=== PATIENT | female | born 1995 | race Caucasian/White ===

== ENCOUNTER → 2020-06-23 13:08 | Outpatient (CLI) | payer MEDICARE, MEDICAID, SELFPAY ==
--- NOTE | ~2020-06-23 | US_ITS ---
EXAMINATION: US OB follow up DATE: 06/23/2020 13:38 INDICATION: care. Contractions. TECHNIQUE: Real-time transabdominal obstetric ultrasound. FINDINGS: No prior studies for comparison. There is a single living fetus in vertex presentation. The placenta is anterior without placenta pre via. cardiac activity and movement is noted with a heart rate of 145 beats per minute. T he amniotic fluid volume is below normal limits. TARIQ is 5.3 (normal range for gestational age is 7.7- 24.9 cm). The following biometric data were obtained: BPD: 87mm corresponds to gestational age 35 weeks 1 days. Head circumference: 321mm corresponds to gestational age 36 weeks 2 days. Abdominal circumference: 316mm corresponds to gestational age 35 weeks 4 days. Femur length: 74mm corresponds to gestational age 37 weeks 6 days. Estimated weight: 2877grams +/- 432grams.] IMPRESSION: 1. Single living intrauterine fetus in vertex presentation with an estimated gestational age of 36 w eeks 2 days by current ultrasound. EDC by current ultrasound is 07/19/2020. 2. Normal placenta. 3: Oligohydramnios. TARIQ measures 5.3 cm. Reviewed, dictated and finalized at location A. IMPRESSION: 1. Single living intrauterine fetus in vertex presentation with an estimated g estational age of 36 weeks 2 days by current ultrasound. EDC by current ultraso und is 07/19/2020. 2. Normal placenta. 3: Oligohydramnios. TARIQ measures 5.3 cm.
== END ==
PROVIDERS: Visit Provider Obstetrics & Gynecology
DX: Z34.83 Encounter for supervision of other normal pregnancy, third trimester (principal); Z3A.36 36 weeks gestation of pregnancy; O41.03X0 Oligohydramnios, third trimester, not applicable or unspecified
CPT/HCPCS: 76816

== ENCOUNTER 2020-07-02 19:53 | Observation (INO) | payer MEDICARE, MEDICAID, SELFPAY ==
[2020-07-02 20:19] VITALS: BP 129/68; PULSE 82
[2020-07-02 20:27] VITALS: BMI 38.5
[2020-07-02 20:32] LABS: Add Urine Microscopic? YES; Appearance Urine Cloudy (Clear); Bacteria Urine Trace /hpf; Bilirubin Urine Negative (Negative); Blood Urine Negative (Negative); Color Urine Yellow (Yellow); Glucose Urine UA Negative (Negative); Ketones Urine Negative (Negative); Leukocyte Esterase Ur Trace LEU/UL (Negative); Mucus Urine Rare /lpf; Nitrate Urine Negative (Negative); Protein Urine Negative (Negative); RBC Urine 0-2 /hpf (0-2); Specific Grav Ur 1.012 (1.001-1.035); Squamous Epithelial Cell Urine Occasional /hpf (Few); Urobilinogen Urine Negative mg/dL (<2.0); WBC Urine 0-3 /hpf
[2020-07-02] MEDS: METOCLOPRAMIDE HCL INJ 10 MG/2 ML VIAL 5 MG IV PUSH (21:08)
[2020-07-02] MEDS: DEXTROSE 5%/0.9% SOD CHL 1,000 ML 999 ML IV CONT (21:08)
[2020-07-02] MEDS: FAMOTIDINE 20 MG/2 ML VIAL IV PUSH (21:09)
[2020-07-02] MEDS: ONDANSETRON INJ 4 MG/2 ML VIAL IV PUSH (21:09)
--- NOTE | 2020-07-07 11:50 | PM.OBTRLD ---
OB - Triage/Final Diagnosis Evaluation Laboratory results: Laboratory Tests 07/02/20 20:19 Urine Color Yellow Urine Appearance Cloudy H Urine pH 7.0 Ur Specific [place] 1.012 Urine Protein Negative Urine Glucose (UA) Negative Urine Ketones Negative Ur Blood (Man) Negative Urine Nitrate Negative Urine Bilirubin Negative Urine Urobilinogen Negative Leukocyte Esterase Rfl Trace H Urine RBC 0-2 Urine WBC 0-3 Ur Squamous Epith Cells Occasional Urine Bacteria Trace Urine Mucus Rare Final Diagnosis (1) Nausea and vomiting during : Code(s): O21.9 - Vomiting of , unspecified Status: Acute
== END 2020-07-02 22:25 | disposition home or self-care (01) ==
PROVIDERS: Admitting Provider Obstetrics & Gynecology; Visit Provider Obstetrics & Gynecology
DX: O21.9 Vomiting of pregnancy, unspecified (principal)
CPT/HCPCS: 81001; 96374; 96375; G0378; G0379; J2405; J2765; J7042

== ENCOUNTER 2020-07-15 15:32 | Outpatient (CLI) | payer MEDICARE, MEDICAID, SELFPAY ==
--- NOTE | 2020-07-15 15:32 | PC.NURSE ---
Addendum entered by Imelda Short RN 07/15/20 17:11: Patient presents to L&D with complaint of leaking of fluid for the past several days and irregular contractions. Original Note: Patient
[2020-07-15 16:16] VITALS: BP 128/81; PULSE 87
--- NOTE | 2020-07-15 16:16 | PC.NURSE ---
Dr. Echavarria notified regarding negative ROM Plus, SVE, and reactive FHR tracing with absence of contractions. Received orders from Dr. Echavarria to discharge patient to home with labor precautions and to have patient return to hospital on Monday at 1330 for her scheduled Section.
--- NOTE | 2020-07-15 16:27 | PC.NURSE ---
Patient instructed on labor and return precautions. Patient instructed to return to hospital on Monday at 1330 for her scheduled Section and to be NPO starting at 0730 Monday morning. Patient instructed to call with any questions or concerns. Patient verbalizes understanding and accepts POC.
== END 2020-07-15 16:27 | disposition home or self-care (01) ==
LOC: ANHOBOP 16:43
PROVIDERS: PCP Obstetrics & Gynecology; Visit Provider Obstetrics & Gynecology
DX: O42.90 Premature rupture of membranes, unspecified as to length of time between rupture and onset of labor, unspecified weeks of gestation (principal); Z3A.00 Weeks of gestation of pregnancy not specified
CPT/HCPCS: 59025

== ENCOUNTER 2020-07-17 12:42 | Inpatient (IN) | payer MEDICARE, MEDICAID, SELFPAY ==
[2020-07-17] VITALS (61 sets, daily range): BP systolic 100–138; BP diastolic 50–82; PULSE 62–107; RESP 14–18; TEMP 36.2–36.3; O2SAT 80–100; BMI 38.0
[2020-07-17 14:03] LABS: Basophils Percent Auto 0.4 % (0.2-1.2); Eosinophils Percent Auto 0.4 % (0-4.4); Hematocrit 41.7 % (37.0-47.0); Hemoglobin 14.3 g/dL (12.0-15.0); Immature Granulocyte Absolute 0.06 K/mm3 (0.00-0.031); Immature Granulocyte Percent A 0.6 % (0-0.5); Lymphocytes Absolute Auto 1.52 K/mm3 (0.9-3.2); Lymphocytes Percent Auto 14.7 % (18.3-44.2); Mean Corpuscular HGB Conc 34.3 g/dl (32-36); Mean Corpuscular Hemoglobin 30.6 pg (26-34); Mean Corpuscular Volume 89.1 fl (80-100); Mean Platelet Volume 8.9 fl (7.4-10.4); Monocytes Absolute Auto 0.5 K/mm3 (0.1-0.6); Monocytes Percent Auto 4.6 % (2.6-8.5); Neutrophils Absolute Auto 8.2 K/mm3 (1.3-6.7); Neutrophils Percent Auto 79.3 % (45.5-73.1); Platelet Count Result 275 k/mm3 (150-375); Red Blood Count 4.68 M/mm3 (4.2-5.4); Red Cell Distribution Width 13.3 % (11.5-14.5); White Blood Count 10.4 K/mm3 (4.5-10.0)
--- NOTE | 2020-07-17 14:10 | WPDANESEPP ---
Anes - Eval Pre Procedure Procedure: Operation Date: 07/17/20 10:30 Proposed Procedures p Repeat Low Transverse Section - Johny Echavarria MD Date/Time: 07/17/20 14:10 Pre Op Diagnosis: scheduled c/s Patient Data Age: 24 Gender: F Height: 1.91 m Weight: 138 kg Last Vital Signs Temp 36.2 C L 07/17/20 13:10 Pulse 85 07/17/20 13:16 Resp 14 07/17/20 13:10 BP 127/79 07/17/20 13:16 Allergies Allergy/AdvReac Type Severity Reaction Status Date / Time ibuprofen Allergy Intermediate Other Verified 07/15/20 17:18 iron Allergy Intermediate Other Verified 07/15/20 17:18 amoxicillin Allergy Unknown vomiting Verified 07/15/20 17:18 morphine Allergy Unknown hives Verified 07/15/20 17:18 clavulanic acid AdvReac Intermediate Nausea and Verified 07/15/20 17:18 Vomiting Home Medications Medication Instructions Recorded Confirmed Type acyclovir 800 mg tablet 800 mg PO DAILY 01/03/20 07/15/20 History vitamin#30 30 mg iron-10 cap PO DAILY cap 01/03/20 History mg iron-folic acid 1 mg-omg3 capsule progesterone micronized 200 mg 200 mg PO ONCE 01/03/20 07/15/20 History capsule Laboratory Tests 07/17/20 07/17/20 13:55 13:55 WBC Pending RBC Pending Hgb Pending Hct Pending MCV Pending MCH Pending MCHC Pending RDW Pending Plt Count Pending MPV Pending Immature Gran % (Auto) Pending Neut % (Auto) Pending Lymph % (Auto) Pending [place] % (Auto) Pending Eos % (Auto) Pending Baso % (Auto) Pending Lymph # (Auto) Pending [place] # (Auto) Pending Eos # (Auto) Pending Baso # (Auto) Pending Abs Immat Gran (auto) Pending Absolute Neuts (auto) Pending Absolute Nucleated RBC Pending Nucleated RBC % Pending RPR Pending Patient hx anesthesia problems: none Family hx anesthesia problems: none PMFSH Past Medical History Medical History Anxiety GERD (gastroesophageal reflux disease) Surgical History Surgical History History of appendectomy History of section Hx of cholecystectomy Family History Family History Father Diabetes mellitus Heart disease COPD (chronic obstructive pulmonary disease) Lung cancer Social History Social History Smoking status: Never smoker Second hand tobacco smoke exposure: No Substance use: never Gender identity (if verbalized by the patient): Female Spiritual care concerns: No Exam Day of Procedure 07/17/20 14:10 Patient weight: obese Heart: regular rate and rhythm Lungs: normal air movement Airway: Mallampati scale class III Neurological: alert and oriented
[2020-07-17] MEDS: LACTATED RINGERS 1,000 ML 125 ML IV CONT (14:49)
--- NOTE | 2020-07-17 16:11 | WPDANESEFPP ---
Anes - Eval Final PreProcedure Day of Procedure 07/17/20 16:11 Patient weight: obese Heart: regular rate and rhythm Lungs: clear to auscultation Airway: Mallampati scale class II Neurological: alert and oriented Last oral intake: >/= 8 hours ASA classification: II Emergent: no Anesthetic plan: proceed Anesthesia type and monitoring: regional spinal and standard monitoring Informed Consent: The patient's anesthetic plan and its attendant risks and benefits were discussed with the patient/family/POA. Questions were solicited and answers provided to the satisfaction of the patient/family/POA.
--- NOTE | 2020-07-17 16:32 | PM.IMHP ---
H&P: HPI History of Present Illness Date/Time: 07/17/20 16:32 Chief complaint: scheduled c/s Narrative: Isabela rFancois is a 24 year old female, with h/o C/S, miscarriage, abnormal progesterone, HSV, GBS, and MTHFR who presents for her repeat c section Review of Systems Review of Systems: All systems reviewed & are unremarkable except as noted in HPI and below Constitutional: Constitutional: Reports no additional constitutional complaints Eyes: Eyes: Reports no additional eye complaints ENT: Reports system reviewed and no additional complaints, except as documented Cardiovascular: Cardiovascular: Reports no additional cardiovascular complaints Respiratory: Respiratory: Reports no additional respiratory complaints Gastrointestinal: Gastrointestinal: Reports no additional gastrointestinal complaints Genitourinary: Genitourinary: Reports no additional female genitourinary complaints Musculoskeletal: Musculoskeletal: Reports no additional musculoskeletal complaints Integumentary/Breasts: Skin/Breast: Reports system reviewed and no additional complaints, except as docu Neurologic: Reports system reviewed and no additional complaints, except as documented Psychiatric: Psychiatric: Reports no additional psychiatric complaints Endocrine: Endocrine: Reports no additional endocrine complaints Hematologic/Lymphatic: Hematologic/Lymphatic: Reports no additional hematologic/lymphatic complaints Allergic/Immunologic: Allergic/Immunologic: Reports no additional allergic/immunologic complaints PMFSH Past Medical History Medical History Anxiety GBS (group B Streptococcus carrier), +RV culture, currently GERD (gastroesophageal reflux disease) 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 HSV (herpes simplex virus) infection Obesity Rh negative status during STD (sexually transmitted disease) Surgical History Surgical History Delivery by section History of appendectomy History of section Hx of cholecystectomy Family History Family History Father Diabetes mellitus Heart disease COPD (chronic obstructive pulmonary disease) Lung cancer Social History Social History (Updated 07/17/20 @ 16:37 by Johny Echavarria MD) Smoking status: Never smoker Second hand tobacco smoke exposure: No Alcohol intake: never Substance use: never Substance use type: does not use Living arrangements: with friend(s) Occupation/Education: unemployed Gender identity (if verbalized by the patient): Female Sexual Orientation (if Verbalized by the Patient): Straight or Heterosexual Spiritual care concerns: No Agree to blood products: Yes Meds Home Medications and Allergies Home Medications Medication Instructions Recorded Confirmed Type acyclovir 800 mg tablet 800 mg PO DAILY 01/03/20 07/15/20 History vitamin#30 30 mg iron-10 cap PO DAILY cap 01/03/20 History mg iron-folic acid 1 mg-omg3 capsule progesterone micronized 200 mg 200 mg PO ONCE 01/03/20 07/15/20 History capsule Allergies Allergy/AdvReac Type Severity Reaction Status Date / Time ibuprofen Allergy Intermediate Other Verified 07/15/20 17:18 iron Allergy Intermediate Other Verified 07/15/20 17:18 amoxicillin Allergy Unknown vomiting Verified 07/15/20 17:18 morphine Allergy Unknown hives Verified 07/15/20 17:18 clavulanic acid AdvReac Intermediate Nausea and Verified 07/15/20 17:18 Vomiting Vital Signs Vital Signs - 24 hr 07/17/20 13:06 07/17/20 13:10 07/17/20 13:16 Temperature 97.2 F L Pulse Rate 83 83 85 Respiratory Rate 14 Blood Pressure 130/77 130/77 127/79 Exam Const: General: cooperative, healthy appearing, comfortable, no acute distress and well developed Nutritional Appearance: obese Orientat
--- NOTE | 2020-07-17 16:41 | WPDHPUPDATE1 ---
History and Physical Update Update Date/Time: 07/17/20 16:41 History and Physical has been reviewed, including an updated exam of the patient. There are NO changes in the patient's condition. Risks, benefits, and alternatives have been discussed and questions answered. Patient agrees to proceed with procedure. 24yo F, with h/o C/S, miscarriage, abnormal progesterone, HSV, GBS, and MTHFR who presents for her repeat c section
--- NOTE | 2020-07-17 16:42 | WPDOBADMIT ---
Obstetrics - Admit Note Admission Note: record reviewed. No pertinent additions to the history and/or any subsequent changes in the physical findings that are not consistent with the expected course of the were found. Additions to the history and/or subsequent changes in the physical findings follow. None. 24yo F, with h/o C/S, miscarriage, abnormal progesterone, HSV, GBS, and MTHFR who presents for her repeat c section
--- NOTE | 2020-07-17 18:16 | P.PCNOB_ITS ---
OB - Delivery Note Procedure Procedure: Procedures Operation Date: 07/17/20 10:30 Repeat low-transverse section with delivery of viable male and placenta under general anesthesia events: Previous Intrapartal events: Chorioamnionitis Induction method: none Delivery monitor: external FHT and external uterine Route of delivery: ( repeat low-transverse) Specimen: Yes ( placenta cord blood gases cord blood) Estimated blood loss (mL): 635 Anesthesia type: General ( endotracheal tube) Disposition: floor Complications: failed spinal anesthesia Chorioamnionitis at time of delivery noted triple antibiotic started [place] Baby Date of : 07/17/20 Time of : 17:40 Weeks of gestation at delivery: 39 gender: Male Weight (pounds): 7 Weight (ounces): 3 presentation: vertex position: Left Occiput Transverse Placenta delivery description: Manual Removal and Normal Configuration cord vessel description: 3 Vessels score one minute: 8 score five minutes: 9
--- NOTE | 2020-07-17 18:20 | PM.PROC ---
Procedure Note - Detailed Date of procedure: 07/17/20 Pre-op diagnosis: scheduled c/s term Previous section desires repeat section Maternal obesity MTHFR mutation Genital herpes on antiviral therapy Group B Streptococcus carrier History of sexually transmitted diseases Rh negative Post-op diagnosis: same ( delivered viable male , chorioamnionitis) Procedure performed: repeat low transverse section with delivery of viable male infant and placenta Description of procedure: patient was taken to the operating room attempted spinal anesthesia was performed the patient was placed in the supine position she was then prepped and draped in the usual sterile fashion with a Edward catheter in place and a traXI device placed on the abdomen. A time-out was performed when testing for adequate anesthesia the patient felt continued pain all across the entire lower abdomen and could move her legs and the spinal anesthetic was unable to set up therefore decision from Anesthesiology was to put the patient to sleep in undergo general anesthesia per endotracheal tube after anesthesia was administered intravenously the patient was oral endotracheally intubated a Pfannenstiel incision was then made to the skin and the abdomen was opened in layers with sharp blade the fascia was extended bilaterally undermined inferiorly and superiorly the rectus muscles were the midline the peritoneum was digitally dissected and a transverse incision was made to the uterus and extended bilaterally. Upon delivery of the vertex followed her was noted to the amniotic fluid and to baby there was spontaneous respirations and cry both bulb suction the cord was clamped and cut and the infant was handed to the nursery nurse in attendance scores 8 and 9 at 1 and 5 minutes weighing 7 lb 3 oz taken to the nursery cord gases cord blood obtained and placenta was then delivered intact the uterus contracted well with Pitocin given intravenously and 10 units into the myometrium. Blood clots and membranes removed from the intrauterine cavity with the uterus externalized the uterine incision was then repaired in 2 layers with 0 Vicryl in a running interlocking fashion the 2nd being an imbricating stitch hemostasis was excellent along the uterine incision. Blood clots removed from the cul-de-sac both lateral gutters and the uterus was returned to the peritoneal cavity the sponge needle instrument counts correct the anterior peritoneum and rectus muscles reapproximated with 0 Vicryl suture in a running fashion the fascia was closed with 2. Quill SRS system bilaterally. The subcutaneous tissues were hemostatic and closed with 3 0 plain in a running fashion and the skin was closed with absorbable staple device insorb with Dermabond to the skin a sterile dressing was then applied the patient was taken to the recovery room in stable condition she tolerated the procedure well was extubated in the operating room family was informed of the operative findings and baby's condition is stable. She will continue on triple antibiotics for 24 hours and the usual postoperative care Anesthesia: GETA Surgeon: Johny Echavarria MD Box Office Clerk: surgical techs x2 Estimated blood loss (mL): 635 IV fluids (mL): 2,000 Urine output (mL): 200 Drains: No Packing: No Pathology: yes ( placenta cord gases cord blood) Complications: None Condition: stable Disposition: floor Findings: viable male infant named Zaheer born at 5:40 p.m. Apgars 8 and 9 weight 7 lb 3 oz 3250 g measuring 19-3/4 inches long taken to the nursery in stable condition had a normal exam Placenta intact three-vessel cord followup odor to the amniotic fluid and to placenta sent to pathology triple antibiotics started Uterus tubes ovaries normal Counts correct Complications none Patient taken to the recovery room stable condition
--- NOTE | 2020-07-17 18:30 | PM.OBDSVD ---
DS: Admitting Diagnosis Admitting Diagnosis Admitting Diagnosis: scheduled c/s term Previous section desires repeat section Anxiety GBS (group B Streptococcus carrier), +RV culture, currently GERD (gastroesophageal reflux disease) Heterozygous MTHFR mutation [id number] HSV (herpes simplex virus) infection Obesity Rh negative status during STD (sexually transmitted disease) DS: Discharge Diagnosis Discharge Diagnosis (1) Term delivered: Code(s): O80 - Encounter for full-term uncomplicated delivery Status: Acute (2) Rh negative status during : Qualifiers: Trimester: third trimester Qualified Code(s): O26.893 - Other specified related conditions, third trimester; Z67.91 - Unspecified blood type, Rh negative Code(s): O26.899 - Other specified related conditions, unspecified trimester; Z67.91 - Unspecified blood type, Rh negative Status: Acute (3) Obesity: Qualifiers: Obesity classification: adult class 2 (BMI 35 - 39.9) Body mass index: BMI 35.0-35.9 Code(s): E66.9 - Obesity, unspecified Status: Acute (4) STD (sexually transmitted disease): Code(s): A64 - Unspecified sexually transmitted disease Status: Acute (5) HSV (herpes simplex virus) infection: Code(s): B00.9 - Herpesviral infection, unspecified Status: Acute (6) GBS (group B Streptococcus carrier), +RV culture, currently : Code(s): O99.820 - Streptococcus B carrier state complicating Status: Acute (7) Delivery by section: Status: Acute (8) GERD (gastroesophageal reflux disease): Qualifiers: Esophagitis presence: without esophagitis Qualified Code(s): K21.9 - Gastro-esophageal reflux disease without esophagitis Code(s): K21.9 - Gastro-esophageal reflux disease without esophagitis Status: Acute (9) Heterozygous MTHFR mutation [id number]: Code(s): E72.12 - Methylenetetrahydrofolate reductase deficiency Status: Acute OB - DS: Summary Hospital Course Time spent discussing smoking cessation with patient: 3 to 10 minutes OB Procedures : NST and Ultrasound OB Procedures Intrapartum: low cervical, transverse and GBS prophylaxis OB Procedures: : Antibiotics and RHo (D) lg Peripartum Data Delivery Method: Section ( repeat low-transverse) Procedures: Procedures Operation Date: 07/17/20 10:30 repeat low-transverse section with delivery of viable male and placenta under general anesthesia complications: none 1: Gender: Male Disposition of : home Status at Discharge Cognitive/behavioral status at discharge: stable normal Functional status at discharge: independent ambulation Overall status at discharge: patient is back to baseline Time Spent with Patient Time attestation: Total time spent providing and/or coordinating discharge services: Time spent: Less than 30 minutes Exam Const: General: cooperative, healthy appearing, comfortable, no acute distress and well developed Nutritional Appearance: obese morbidly obese Orientation/consciousness: patient oriented x3 Limitations: no limitations HENMT: Head: normal to inspection Eyes: General: appearance normal, both eyes and all related structures Neck: Neck: normal visual inspection Chest: Chest palpation & inspection: normal inspection of the chest Breast/axilla inspection: normal inspection of the breasts Breast/axilla palpation: normal palpation of the breasts Resp: Effort & Inspection: normal respiratory effort Auscultation: clear to auscultation bilaterally Cardio: Jugular venous distension: no JVD Palpation: normal PMI Rate: regular rate Rhythm: regular rhythm GI: Inspection: normal to inspection, incision ( clean dry intact), Pannus present and obesity
[2020-07-17] MEDS: KETOROLAC 30 MG/ML VIAL (*BKC) IV PUSH (19:04)
[2020-07-17] MEDS: OXYTOCIN 30 UNITS/NS 500 ML 30 UNITS/500 ML BAG 125 UNITS IV CONT (19:06)
[2020-07-17] MEDS: HYDROmorphone HCL INJ (*CRX) 1 MG/ML SYR 0.25 MG IV PUSH ×2 (19:40→20:06)
[2020-07-17] MEDS: HYDROmorphon 0.2MG/ML PCA(*CRX 6 MG/30 ML PCA.VIAL 0.1 MG IV CONT (20:30)
[2020-07-17] MEDS: CLINDAMYCIN 900 MG/NS 50 ML 900 MG/50 ML PIGGYBACK 50 MG IVPB (21:11)
--- NOTE | 2020-07-17 21:50 | OBPPTRN ---
Patient transferred to post room #283 via stretcher. Support person present. Oriented to unit, room, information board, rooming in, admission packet and security measures. Patient verbalizes understanding.
[2020-07-17] MEDS: ACETAMINOPHEN 325 MG TABLET 650 MG PO (22:33)
[2020-07-17] MEDS: ceFAZolin 2 GM/D5W 50 ML 2 GM/50 ML BAG IVPB (22:39)
[2020-07-17] MEDS: DEXTROSE 5%/0.45% SOD CHL 1,000 ML 125 ML IV CONT (23:31)
[2020-07-18] VITALS (10 sets, daily range): BP systolic 103–118; BP diastolic 63–74; PULSE 66–90; RESP 16–20; TEMP 36.4–36.6; O2SAT 100
[2020-07-18] MEDS: ACETAMINOPHEN 325 MG TABLET 650 MG PO (03:59)
[2020-07-18 04:50] LABS: Basophils Percent Auto 0.4 % (0.2-1.2); Eosinophils Percent Auto 0.1 % (0-4.4); Hematocrit 32.9 % (37.0-47.0); Hemoglobin 11.2 g/dL (12.0-15.0); Immature Granulocyte Absolute 0.06 K/mm3 (0.00-0.031); Immature Granulocyte Percent A 0.5 % (0-0.5); Lymphocytes Absolute Auto 1.69 K/mm3 (0.9-3.2); Lymphocytes Percent Auto 14.8 % (18.3-44.2); Mean Corpuscular Hemoglobin 30.7 pg (26-34); Mean Corpuscular Volume 90.1 fl (80-100); Monocytes Absolute Auto 0.6 K/mm3 (0.1-0.6); Monocytes Percent Auto 4.8 % (2.6-8.5); Neutrophils Absolute Auto 9.1 K/mm3 (1.3-6.7); Neutrophils Percent Auto 79.4 % (45.5-73.1); Platelet Count Result 199 k/mm3 (150-375); Red Blood Count 3.65 M/mm3 (4.2-5.4); Red Cell Distribution Width 13.1 % (11.5-14.5); White Blood Count 11.4 K/mm3 (4.5-10.0)
[2020-07-18] MEDS: CLINDAMYCIN 900 MG/NS 50 ML 900 MG/50 ML PIGGYBACK 50 MG IVPB ×2 (05:00→14:35)
[2020-07-18] MEDS: KETOROLAC 30 MG/ML VIAL (*BKC) IV PUSH ×2 (07:18→16:32)
[2020-07-18] MEDS: DOCUSATE SODIUM 100 MG CAPSULE PO ×2 (07:19→16:31)
[2020-07-18] MEDS: MULTIVIT/MIN/PREN/FOL AC/IRON TABLET 1 TAB PO (07:19)
--- NOTE | 2020-07-18 07:33 | WPDANLDNPN2 ---
Anes-Prog Note L&D-Neuraxial Date/Time: 07/18/20 07:33 Neuraxial medications: intrathecal PF morphine Opiod-related complaints: none Patient feedback: Patient satisfied with post-operative pain management.
--- NOTE | 2020-07-18 07:34 | WPDANLDPN2 ---
Anes-Prog Note L&D Date/Time: 07/18/20 07:34 Comfortable throughout: section Neuraxial method: spinal Epidural/Spinal procedure site: clean & non-tender Neuro status: Neuro function grossly intact. Cardiovascular status: normal Respiratory status: normal Airway patency: baseline Mental status: baseline Post-Op hydration status: normal Vital Signs: Last Vital Signs Temp 36.6 C 07/18/20 04:00 Pulse 81 07/18/20 04:00 Resp 16 07/18/20 04:30 BP 118/69 07/18/20 04:00 Pulse Ox 100 07/18/20 04:30 Pain score (VAS): 2 I/O: Intake & Output 07/17/20 07/17/20 07/18/20 15:59 23:59 07:59 Intake Total 703.45 1257.45 Output Total 998 1000 Balance -294.55 257.45 Post-procedural complaints: none Patient feedback: Patient satisfied with anesthetic care.
--- NOTE | 2020-07-18 10:06 | PM.OBPNVD ---
OB - PN: Subj Subjective Date/time seen: 07/18/20 08:13 POD#1 s/p rLTCS Isabela reports doing well this morning. She reports abdominal pain but that it is improved with PO pain meds. She tolerated breakfast. The catheter has not been removed yet. No passage of flatus yet. Her vaginal bleeding is getting broom builder. She has not ambulated yet. She is bottle feeding. She desires her son to be circumcised. She denies CP, SOB, DOVE, vision changes, fever, chills, N/V, dizziness or palpations. OB - PN: Obj Data Labs CBC & Chem 7: 07/18/20 04:12 Labs: Laboratory Results - last 24 hr 07/17/20 07/17/20 07/18/20 13:55 13:55 04:12 WBC 10.4 H 11.4 H RBC 4.68 3.65 L Hgb 14.3 11.2 L D Hct 41.7 32.9 L MCV 89.1 90.1 MCH 30.6 30.7 MCHC 34.3 34.0 RDW 13.3 13.1 Plt Count 275 199 MPV 8.9 9.0 Immature Gran % (Auto) 0.6 H 0.5 Neut % (Auto) 79.3 H 79.4 H Lymph % (Auto) 14.7 L 14.8 L [place] % (Auto) 4.6 4.8 Eos % (Auto) 0.4 0.1 Baso % (Auto) 0.4 0.4 Lymph # (Auto) 1.52 1.69 [place] # (Auto) 0.5 0.6 Eos # (Auto) 0.0 0.0 Baso # (Auto) 0.0 0.0 Abs Immat Gran (auto) 0.06 H 0.06 H Absolute Neuts (auto) 8.2 H 9.1 H Absolute Nucleated RBC 0.0 0.0 Nucleated RBC % 0.0 0.0 Blood Type O Negative Antibody Screen Negative Screen Baby's Blood Type Baby's SUNITHA Doses of RhIg Required 07/18/20 04:12 WBC RBC Hgb Hct MCV MCH MCHC RDW Plt Count MPV Immature Gran % (Auto) Neut % (Auto) Lymph % (Auto) [place] % (Auto) Eos % (Auto) Baso % (Auto) Lymph # (Auto) [place] # (Auto) Eos # (Auto) Baso # (Auto) Abs Immat Gran (auto) Absolute Neuts (auto) Absolute Nucleated RBC Nucleated RBC % Blood Type O Negative Antibody Screen TNP Screen Negative Baby's Blood Type O pos Baby's SUNITHA Negative Doses of RhIg Required 1 OB - PN A/P Assessment and Plan (1) Delivery by section: Status: Acute (2) Rh negative status during : Qualifiers: Trimester: third trimester Qualified Code(s): O26.893 - Other specified related conditions, third trimester; Z67.91 - Unspecified blood type, Rh negative Code(s): O26.899 - Other specified related conditions, unspecified trimester; Z67.91 - Unspecified blood type, Rh negative Status: Acute (3) GBS (group B Streptococcus carrier), +RV culture, currently : Code(s): O99.820 - Streptococcus B carrier state complicating Status: Acute Plan day: 1 Plan: routine care Comments: - Pt doing well post-op; meeting some milestones - Continue IV antibiotics for 24 hrs post-op - Labs/vitals/exam stable-- Rhogam studies pending - Catheter to be removed, if no void after 6 hrs, recommend straight catheterization - Ambulation and PO hydration encouraged-- SCD's while in bed - Circumcision performed 07/18/20 Time Spent With Patient Time: Total time spent is greater than 50% in coordination of care (as documented) at patient's floor/unit and/or counseling patient: Review of Systems Review of Systems: All systems reviewed & are unremarkable except as noted in HPI and below (HPI) Exam Const: General: cooperative, healthy appearing, comfortable and no acute distress Orientation/consciousness: patient oriented x3 Resp: Effort & Inspection: normal respiratory effort Auscultation: clear to auscultation bilaterally Cardio: Rate: regular rate GI: Inspection: non-distended and incision (covered with clean dressing) GI Palp: Yes abdominal tenderness (appropriate) Auscultation: normal bowel sounds : Other: fundus firm below umbilicus, normal vaginal bleeding Skin: General skin exam: normal color Neuro: Speech: normal speech Extrem: General: normal to inspection Psych: Appearance: grossly normal Affect: normal affect Attitude: cooperative
[2020-07-18] MEDS: HYDROcodone/acetaminophen (*CRX) 10-325 MG TABLET 1 TAB PO ×3 (10:32→21:39)
--- NOTE | 2020-07-18 11:00 | PC.NURSE ---
Pharmacy sent [facility] now after calling for medication this AM.
[2020-07-18] MEDS: ceFAZolin 2 GM/D5W 50 ML 2 GM/50 ML BAG IVPB ×2 (11:08→18:35)
[2020-07-18] MEDS: RHO(D) IMMUNE GLOBULIN 300 MCG SYRINGE IM (15:32)
[2020-07-18] MEDS: HYDROcodone/acetaminophen (*CRX) 5-325 MG TABLET 1 TAB PO (16:31)
[2020-07-19] MEDS: HYDROcodone/acetaminophen (*CRX) 5-325 MG TABLET 1 TAB PO ×2 (05:27→07:02)
[2020-07-19 07:00] VITALS: BP 109/73; PULSE 90; RESP 20; TEMP 37.3
[2020-07-19] MEDS: DOCUSATE SODIUM 100 MG CAPSULE PO (09:40)
[2020-07-19] MEDS: MULTIVIT/MIN/PREN/FOL AC/IRON TABLET 1 TAB PO (09:40)
--- NOTE | 2020-07-19 10:21 | P.PNOB_ITS ---
OB - PN: Subj Subjective Date/time seen: 07/19/20 10:21 POD #2 Isabela is doing well; showered and got ready. She reports her pain is better controlled. She is tolerating regular diet w/o issue. Voiding and passing flatus. 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 Ambulating w/o issues. Bottle feeding her son. She would like to go home this afternoon. No DOVE, CP, SOB, N/V, fever, chills, dizziness, palpitations. OB - PN: Obj Data Labs CBC & Chem 7: 07/18/20 04:12 Labs: Laboratory Results - last 24 hr 07/18/20 04:12 Blood Type O Negative Antibody Screen TNP Screen Negative Baby's Blood Type O pos Baby's SUNITHA Negative Doses of RhIg Required 1 OB - PN A/P Assessment and Plan (1) Delivery by section: Status: Acute Plan day: 2 Plan: routine care, discharge home and follow up 6 weeks (with Dr. Echavarria) Comments: - Return precautions discussed in length: fever, N/V/abdominal pain, bleeding, HTN signs - Discussed incision care; pt to take dressing off by 7 days after surgery. No creams/lotions/antiseptics-- keep clean and dry, can use gauze to keep dry; wash with gentle soap and water; look at incision daily - No heavy lifting; pelvic rest; take meds as prescribed Time Spent With Patient Time: Total time spent is greater than 50% in coordination of care (as documented) at patient's floor/unit and/or counseling patient: Review of Systems Review of Systems: All systems reviewed & are unremarkable except as noted in HPI and below (HPI) Exam Const: General: cooperative, comfortable and no acute distress Resp: Effort & Inspection: normal respiratory effort Auscultation: clear to auscultation bilaterally Cardio: Rate: regular rate GI: Inspection: normal to inspection and incision (C/D/I covered w/ clean dressing) GI Palp: Yes abdominal tenderness (appropriate) and Yes Soft to palpation Auscultation: normal bowel sounds : Other: fundus firm below umbilicus Skin: General skin exam: normal color Neuro: General: patient oriented x3 Speech: normal speech Extrem: General: normal to inspection Psych: Appearance: grossly normal and well kempt Affect: normal affect Attitude: cooperative
[2020-07-19] MEDS: HYDROcodone/acetaminophen (*CRX) 10-325 MG TABLET 1 TAB PO (10:50)
--- NOTE | 2020-07-19 13:31 | PC.NURSE ---
Patient discharged home with . Discharge instructions given and all questions answered. Follow-up appointment scheduled.
[2020-07-20 08:21] LABS: Rapid Plasma Reagin Non-Reactive (NonReactive)
[2020-07-21 08:44] VITALS: BP 120/82; PULSE 88; RESP 20; TEMP 36.4; O2SAT 100
== END 2020-07-19 13:30 | disposition home or self-care (01) | DRG 786 ==
LOC: ANHLDR 18:37 → ANHOB2 22:20
PROVIDERS: Admitting Provider Obstetrics & Gynecology; PCP Obstetrics & Gynecology; Visit Provider Obstetrics & Gynecology
PROC: 10D00Z1 Extraction of Products of Conception, Low, Open Approach (ICD-10-PCS; CPT 59514; principal; 2020-07-17 10:30)
DX: O34.211 Maternal care for low transverse scar from previous cesarean delivery (principal); O41.1230 Chorioamnionitis, third trimester, not applicable or unspecified; O98.32 Other infections with a predominantly sexual mode of transmission complicating childbirth; E72.12 Methylenetetrahydrofolate reductase deficiency; O36.0930 Maternal care for other rhesus isoimmunization, third trimester, not applicable or unspecified; Z37.0 Single live birth; Z3A.39 39 weeks gestation of pregnancy; K21.9 Gastro-esophageal reflux disease without esophagitis; O99.62 Diseases of the digestive system complicating childbirth; O99.344 Other mental disorders complicating childbirth; F41.9 Anxiety disorder, unspecified; O99.214 Obesity complicating childbirth; E66.9 Obesity, unspecified; A60.00 Herpesviral infection of urogenital system, unspecified; O99.824 Streptococcus B carrier state complicating childbirth
CPT/HCPCS: 36415; 59025; 85025; 85461; 86592; 86850; 86900; 86901; 88307; 90384; A9270; J0330; J0690; J1170; J1580; J1885; J2405; J2590; J2704; J2790; J3010; J7120

== ENCOUNTER 2022-04-12 13:26 | Outpatient (CLI) | payer OTHER, SELFPAY ==
--- NOTE | ~2022-04-12 | US_ITS ---
EXAMINATION: US OB follow up DATE: 04/12/2022 14:36 INDICATION: Uncertain gestational dates. TECHNIQUE: Real-time transabdominal obstetric ultrasound. FINDINGS: No prior studies for comparison. There is a single living fetus in vertex presentation. Amniotic fluid is subjectively normal. cardiac activity and movement is noted with a heart rate of 143 beats per minute. T he amniotic fluid volume is subjectively normal. The following biometric data were obtained: BPD: 29mm corresponds to gestational age 15 weeks 2 days. Head circumference: 108mm corresponds to gestational age 15 weeks 1 days. Abdominal circumference: 79mm corresponds to gestational age 14 weeks 2 days. Femur length: 16mm corresponds to gestational age 14 weeks 5 days. Estimated weight: 10 1 ggrams +/- 15grams.] IMPRESSION: 1. Single living intrauterine in vertex presentation with an estimated gestational age of 14 weeks 6 days by current ultrasound. EDC by current measurements is 10/05/2022 Reviewed, dictated and finalized at location A. IMPRESSION: 1. Single living intrauterine in vertex presentation with an estimat ed gestational age of 14 weeks 6 days by current ultrasound. EDC by current angelito surements is 10/05/2022
== END 2022-04-12 13:27 | disposition home or self-care (01) ==
PROVIDERS: PCP Obstetrics & Gynecology; Visit Provider Advanced Practice Midwife
DX: Z34.92 Encounter for supervision of normal pregnancy, unspecified, second trimester (principal); Z3A.15 15 weeks gestation of pregnancy
CPT/HCPCS: 76816

== ENCOUNTER 2022-05-02 14:03 | Outpatient (CLI) | payer OTHER, SELFPAY ==
--- NOTE | ~2022-05-02 | US_ITS ---
EXAMINATION: US OB follow up DATE: 05/02/2022 15:54 INDICATION: anatomy TECHNIQUE: Real-time ultrasound of the pelvis was performed. The interpreting radiologist was not pre sent for the study. COMPARISON: None. FINDINGS: There is a single living fetus in breech presentation. The placenta is anterior. heart rate is 142 beats per minute (bpm). The amniotic fluid volume is subjectively normal. The following biometric data were obtained: BPD: 3.8 cm -> 17 weeks 5 days Head circumference: 15.3 cm -> 18 weeks 2 days Abdominal circumference: 12.7 cm -> 18 weeks 2 days Femur length: 2.4 cm -> 17 weeks 2 days Cephalic index of 69 slightly below normal range of 70-86 consistent with dolichocephaly. These measurements are otherwise concordant. Head circumference to abdominal circumference ratio: 1.21 (normal range 1.08-1.28). Estimated weight: 211 g (+/-) 32 g or 7 oz. (+/-) 1 oz. IMPRESSION: 1. Single living fetus in breech presentation with heart rate of 142 bpm. 2. Estimated weight is 51st percentile by Hadlock criteria when 10/05/2022 is used as the estimat ed date of delivery (JAMIA). Please correlate with clinical information or earlier ultrasounds for most accurate JAMIA. 3. anatomy scan was deferred due to poor visualization of anatomic features resulting from comb ination of still relatively early stage of and patient body habitus. Consider obtaining fet al anatomy scan in an additional 2 weeks. Reviewed, dictated and finalized at location A. IMPRESSION: 1. Single living fetus in breech presentation with heart rate of 142 bpm. 2. Estimated weight is 51st percentile by Hadlock criteria when 10/05/2022 is used as the estimated date of delivery (JAMIA). Please correlate with clinical information or earlier ultrasounds for most accurate JAMIA. 3. anatomy scan was deferred due to poor visualization of anatomic featur es resulting from combination of still relatively early stage of and patient body habitus. Consider obtaining anatomy scan in an additional 2 weeks.
== END 2022-05-02 14:04 | disposition home or self-care (01) ==
PROVIDERS: PCP Obstetrics & Gynecology; Visit Provider Advanced Practice Midwife
DX: Z36.0 Encounter for antenatal screening for chromosomal anomalies (principal)
CPT/HCPCS: 76816

== ENCOUNTER 2022-05-25 11:02 | Outpatient (CLI) | payer OTHER, SELFPAY ==
--- NOTE | ~2022-05-25 | US_ITS ---
EXAMINATION: US OB /maternal detail DATE: 05/25/2022 12:45 INDICATION: Second trimester anatomic survey TECHNIQUE: Real-time ultrasound of the pelvis was performed. COMPARISON: None. FINDINGS: There is a single living fetus in variable presentation. The placenta is anterior. heart rate i s 142 beats per minute (bpm). cardiac activity and movement are noted. The amniotic flui d index is subjectively normal. The heart is not well demonstrated. The following anatomy was identified as normal: 3 vessel cord cord insertion kidneys urinary bladder stomach spine diaphragm ventricles cisterna magna cerebellum The following biometric data were obtained: Biparietal diameter (BPD): 4.7 cm; head circumference (HC): 19.2 cm; abdominal circumference (AC): 16 .6 cm; femur length (FL): 3.5 cm. These measurements are concordant. Estimated weight is 421 g +/- 63 g, which correlates with the 67th percentile when 10/05/2022 is used as estimated date of delivery. As single measurements, these parameters are each equal to the following estimated gestational ages w ith ranges of +/- 2 standard deviations: BPD: 20 weeks 2 days +/- 1 weeks 5 days. HC: 21 weeks 3 days +/- 1 weeks 3 days. AC: 21 weeks 5 days +/- 2 weeks 0 days. FL: 21 weeks 1 days +/- 1 weeks 6 days. estimated gestational age based solely on measurements from this exam is 2 weeks 1 days +/- 1 w eeks 3 days. IMPRESSION: 1. Single living fetus in variable presentation. 2. Estimated weight is 421 g +/- 63 g, which correlates with the 67th percentile when 10/05/2022 is used as estimated date of delivery. 3. Incomplete anatomic survey, heart not well demonstrated. Reviewed, dictated and finalized at location B. IMPRESSION: 1. Single living fetus in variable presentation. 2. Estimated weight is 421 g +/- 63 g, which correlates with the 67th per centile when 10/05/2022 is used as estimated date of delivery. 3. Incomplete anatomic survey, heart not well demonstrated.
== END 2022-05-25 11:03 | disposition home or self-care (01) ==
PROVIDERS: Visit Provider Obstetrics & Gynecology Gynecology
DX: Z34.92 Encounter for supervision of normal pregnancy, unspecified, second trimester (principal); Z3A.21 21 weeks gestation of pregnancy
CPT/HCPCS: 76805

== ENCOUNTER 2022-07-26 13:29 | Outpatient (RCR) | payer OTHER, SELFPAY ==
[2022-07-21 13:40] LABS: Hematocrit 38.6 % (37.0-47.0); Hemoglobin 12.6 g/dL (12.0-15.0)
[2022-07-21 13:53] LABS: Glucose 1 Hour PP 50gm Dose 79 mg/dL
[2022-07-21 14:33] LABS: HIV 1/2 Ab P24 Ag Result Negative (Negative)
[2022-07-26 17:10] LABS: Vitamin D 25 Hydroxy 30.2 ng/mL
[2022-07-27] MEDS: RHO(D) IMMUNE GLOBULIN 300 MCG/2 ML SYRINGE IM (13:49)
== END 2022-10-19 23:59 | disposition home or self-care (01) ==
LOC: ANHLAB 13:29
PROVIDERS: Visit Provider Obstetrics & Gynecology Gynecology
DX: Z11.4 Encounter for screening for human immunodeficiency virus [HIV] (principal); Z29.13 Encounter for prophylactic Rho(D) immune globulin; O36.0190 Maternal care for anti-D [Rh] antibodies, unspecified trimester, not applicable or unspecified; Z3A.00 Weeks of gestation of pregnancy not specified
CPT/HCPCS: 36415; 76815; 82306; 82947; 85014; 85018; 85461; 86703; 90384; 96372; G0432; J2790

== ENCOUNTER 2022-09-01 14:23 | Observation (INO) | payer OTHER, SELFPAY ==
[2022-09-01] VITALS (8 sets, daily range): BP systolic 111–124; BP diastolic 68–75; PULSE 90–117; O2SAT 100; BMI 41.3
--- NOTE | 2022-09-09 09:08 | PM.OBTRLD ---
OB - Triage/Final Diagnosis Visit Information Reason for evaluation: other (nausea and vomiting) Comments/Additional reasons for admission: I have assessed the risk for this patient, Isabela Francois, and determined that she would benefit from observation care.
== END 2022-09-01 16:57 | disposition home or self-care (01) ==
PROVIDERS: Admitting Provider Obstetrics & Gynecology Gynecology; Visit Provider Obstetrics & Gynecology Gynecology
DX: O21.9 Vomiting of pregnancy, unspecified (principal); Z3A.00 Weeks of gestation of pregnancy not specified
CPT/HCPCS: G0378; G0379

== ENCOUNTER 2022-09-28 16:03 | Outpatient (CLI) | payer OTHER, SELFPAY ==
[2022-09-28 17:03] LABS: Basophils Absolute Auto 0.1 K/mm3 (0.0-0.1); Basophils Percent Auto 0.5 % (0.2-1.2); Eosinophils Absolute Auto 0.1 K/mm3 (0-0.3); Eosinophils Percent Auto 0.6 % (0-4.4); Hematocrit 36.3 % (37.0-47.0); Hemoglobin 12.4 g/dL (12.0-15.0); Immature Granulocyte Absolute 0.14 K/mm3 (0.00-0.031); Immature Granulocyte Percent A 1.2 % (0-0.5); Lymphocytes Absolute Auto 2.58 K/mm3 (0.9-3.2); Lymphocytes Percent Auto 21.7 % (18.3-44.2); Mean Corpuscular HGB Conc 34.2 g/dl (32-36); Mean Corpuscular Hemoglobin 29.9 pg (26-34); Mean Corpuscular Volume 87.5 fl (80-100); Mean Platelet Volume 8.5 fl (7.4-10.4); Monocytes Absolute Auto 0.6 K/mm3 (0.1-0.6); Monocytes Percent Auto 4.6 % (2.6-8.5); Neutrophils Absolute Auto 8.5 K/mm3 (1.3-6.7); Neutrophils Percent Auto 71.4 % (45.5-73.1); Platelet Count Result 268 k/mm3 (150-375); Red Blood Count 4.15 M/mm3 (4.2-5.4); Red Cell Distribution Width 13.2 % (11.5-14.5); White Blood Count 11.9 K/mm3 (4.5-10.0)
[2022-09-29 15:57] LABS: Rapid Plasma Reagin Non-Reactive (NonReactive)
== END 2022-09-28 16:04 | disposition home or self-care (01) ==
PROVIDERS: Visit Provider Obstetrics & Gynecology Gynecology
DX: Z01.812 Encounter for preprocedural laboratory examination (principal)
CPT/HCPCS: 36415; 85025; 86592; 86850; 86880; 86900; 86901

== ENCOUNTER 2022-09-29 04:49 | Inpatient (IN) | payer OTHER, SELFPAY ==
--- NOTE | 2022-09-03 13:06 | PC.NURSE ---
verified with OR schedule and patient--C/S with tubal ligation on 09/29/22 at 0730 Patient given requisition for lab draw on 09/28/22
[2022-09-29] VITALS (48 sets, daily range): BP systolic 104–129; BP diastolic 61–98; PULSE 61–87; RESP 15–19; TEMP 36.2–36.8; O2SAT 96–100; BMI 34.1
[2022-09-29] MEDS: LACTATED RINGERS 1,000 ML 125 ML IV CONT (05:49)
--- NOTE | 2022-09-29 05:49 | LDADM ---
This patient, Isabela Francois, was admitted to Labor/Delivery/Recovery 120 on 09/29/22 at 04:49. Plans for labor, pain management and were discussed with patient. Patient/family oriented to hospital policies and general routines including ID bracelet, bed and alarms, visiting hours, pain management, procedures, bathroom and other care routines, personal items, smoking policy, room service/diet and guest tray routines, infant security routines, and visiting hours. Patient/Family are encouraged to report perceived risks to care and to ask questions if they do not understand what they are told or what they should do. See OBIX for further documentation.
[2022-09-29 06:33] LABS: HIV 1/2 Ab P24 Ag Result Negative (Negative)
--- NOTE | 2022-09-29 06:54 | WPDHPUPDATE1 ---
History and Physical Update Update Date/Time: 09/29/22 06:54 History and Physical has been reviewed, including an updated exam of the patient. There are NO changes in the patient's condition. Risks, benefits, and alternatives have been discussed and questions answered. Patient agrees to proceed with procedure.
--- NOTE | 2022-09-29 06:54 | PM.IMHP ---
H&P: HPI History of Present Illness Date/Time: 09/29/22 06:54 Chief Complaint: Repeat section and bilateral tubal ligation Narrative: the patient is a 18-year-old 6 para 3 aborted 2 admitted at 39 weeks for repeat section as well as bilateral tubal ligation. The patient's been uncomplicated. Risks of surgery including failure of tubal ligation with ectopic were reviewed. Patient is aware this is a permanent sterilizing procedure. Patient voiced understanding and agrees to proceed. 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 HSV (herpes simplex virus) infection Human papilloma virus Obesity Rh negative status during STD (sexually transmitted disease) Surgical History Surgical History (Updated 09/29/22 @ 07:00 by Marsha Wagner MD) History of appendectomy History of section 03/17/14 primary c/s--failure to dilate 2016 2019 History of colposcopy with cervical biopsy 09/10/09 benign 02/23/11 SANDEEP II + HPV History of ovarian cystectomy 07/21/16 lscope lt ovarian cystectomy--no cystectomy lt ovarian cyst drained, no path History of placement of ear tubes 2002 Hx of cholecystectomy 07/01/14 Family History Family History Father Diabetes mellitus Heart disease COPD (chronic obstructive pulmonary disease) Lung cancer Social History Social History (Updated 07/17/20 @ 16:37 by Johny Echavarria MD) Smoking status: Never smoker Second hand tobacco smoke exposure: No Alcohol intake: never Substance use: current Substance use type: does not use Last use: last time Jul 2022 Lack of Transportation: No Lack of Food: Never True Current Housing: I Have Housing Concerned About Future Housing: No Difficulty Paying Gas/Electric Bills: No Difficulty Paying for Meds: No Currently Unemployed: No Education: High School Diploma/GED Difficulty w/ Childcare or Family Care: No Gender identity (if verbalized by the patient): Female Sexual Orientation (if Verbalized by the Patient): Straight or Heterosexual Spiritual care concerns: No Agree to blood products: Yes Meds Home Medications and Allergies Home Medications Medication Instructions Recorded Confirmed Type vitamin#30 30 mg iron-10 1 cap PO DAILY 01/03/20 09/29/22 History mg iron-folic acid 1 mg-omg3 capsule acyclovir 800 mg tablet 800 mg PO DAILY 09/03/22 09/03/22 History ergocalciferol (vitamin D2) 1,250 1,250 mcg PO WEEKLY 09/03/22 09/03/22 History mcg (50,000 unit) capsule (Vitamin D2) Allergies Allergy/AdvReac Type Severity Reaction Status Date / Time ibuprofen Allergy Intermediate Other Verified 09/29/22 05:10 iron Allergy Intermediate Other Verified 09/29/22 05:10 amoxicillin Allergy Unknown vomiting Verified 09/29/22 05:10 morphine Allergy Unknown hives Verified 09/29/22 05:10 clavulanic acid AdvReac Intermediate Nausea and Verified 09/29/22 05:10 Vomiting Vital Signs Vital Signs - 24 hr 09/29/22 05:13 09/29/22 05:55 Pulse Rate 78 Blood Pressure 116/79 Oxygen Delivery Room Air Exam Narrative: weight 272 lb Const: General: comfortable Nutritional Appearance: obese Orientation/consciousness: patient oriented x3 Resp: Effort & Inspection: normal respiratory effor
--- NOTE | 2022-09-29 06:55 | WPDANESEPPF ---
Anes - Initial Pre Proc Eval Procedure: Operation Date: 09/29/22 07:30 Proposed Procedures p Repeat Section with Bilateral Tubal Ligation - Marsha Wagner MD Date/Time: 09/29/22 06:55 Surgeon: Marsha Wagner MD Pre Op Diagnosis: Repeat , Vol Sterilization Patient Data Age: 26 Gender: F Height: 1.91 m Weight: 124 kg Last Vital Signs Pulse 78 09/29/22 05:13 BP 116/79 09/29/22 05:13 O2 Del Method Room Air 09/29/22 05:55 Allergies Allergy/AdvReac Type Severity Reaction Status Date / Time ibuprofen Allergy Intermediate Other Verified 09/29/22 05:10 iron Allergy Intermediate Other Verified 09/29/22 05:10 amoxicillin Allergy Unknown vomiting Verified 09/29/22 05:10 morphine Allergy Unknown hives Verified 09/29/22 05:10 clavulanic acid AdvReac Intermediate Nausea and Verified 09/29/22 05:10 Vomiting Home Medications Medication Instructions Recorded Confirmed Type vitamin#30 30 mg iron-10 1 cap PO DAILY 01/03/20 09/29/22 History mg iron-folic acid 1 mg-omg3 capsule acyclovir 800 mg tablet 800 mg PO DAILY 09/03/22 09/03/22 History ergocalciferol (vitamin D2) 1,250 1,250 mcg PO WEEKLY 09/03/22 09/03/22 History mcg (50,000 unit) capsule (Vitamin D2) Laboratory Tests 09/29/22 05:38 HIV 1&2 Ab/P24 Ag 4thGn Negative (Negative) Patient hx anesthesia problems: none Family hx anesthesia problems: none Results Review: All pre-operative results and documents have been reviewed as part of the pre-operative evaluation. [facility] Past Medical History Medical History (Updated 11/23/21 @ 14:25 by Mikki Forman) Abnormal Pap smear of cervix 08/24/09 HGSIL (+) HPV; 03/11/10 LGSIL (+) HPV; 12/16/10 ASCUS (+) HPV; 02/23/11 colp Anxiety Chlamydia Dizziness GBS (group B Streptococcus carrier), +RV culture, currently GERD (gastroesophageal reflux disease) Gonorrhea Heterozygous MTHFR mutation [id number] HSV (herpes simplex virus) infection Human papilloma virus Obesity Rh negative status during STD (sexually transmitted disease) Surgical History Surgical History (Updated 11/23/21 @ 14:25 by Mikki Forman) Delivery by section History of appendectomy History of section 03/17/14 primary c/s--failure to dilate History of colposcopy with cervical biopsy 09/10/09 benign 02/23/11 SANDEEP II + HPV History of ovarian cystectomy 07/21/16 lscope lt ovarian cystectomy--no cystectomy lt ovarian cyst drained, no path History of placement of ear tubes 2002 Hx of cholecystectomy 07/01/14 Family History Family History Father Diabetes mellitus Heart disease COPD (chronic obstructive pulmonary disease) Lung cancer Social History Social History (Updated 07/17/20 @ 16:37 by Johny Echavarria MD) Smoking status: Never smoker Second hand tobacco smoke exposure: No Alcohol intake: never Substance use: current Substance use type: does not use Last use: last time Jul 2022 Lack of Transportation: No Lack of Food: Never True Current Housing: I Have Housing Concerned About Future Housing: No Difficulty Paying Gas/Electric Bills: No Difficulty Paying for Meds: No Currently Unemployed: No Education: High School Diploma/GED Difficulty w/ Childcare or Family Care: No Gender identity (if verbalized by the patient): Female Sexual Orientation (if Verbalized by the Patient): Straight or Heterosexual Spiritual care concerns: No Agree to blood products: Yes Anes - Eval Final PreProcedure Day of Procedure 09/29/22 06:55 Patient weight: obese Heart: regular rate and rhythm Lungs: clear to auscultation and normal air movement Airway: Mallampati scale class II Neurological: alert and oriented Last oral intake: >/= 8 hours ASA classification: II Emergent: no Anesthetic plan: proceed Anesthesi
[2022-09-29] MEDS: ceFAZolin 3 GM/D5W 100 ML 100 ML IVPB (07:01)
--- NOTE | 2022-09-29 08:02 | W.PM.PROC2 ---
Procedure Note - Detailed Date of Procedure 09/29/22 Pre-op Diagnosis previous section x3 Intrauterine at 39 weeks request sterilization Post-op Diagnosis Same Procedure Performed repeat low-transverse section and bilateral tubal ligation Surgeon Marsha Wagner MD Anesthesia Spinal Findings male 6lb 11oz with 8 and 9 Apgars; nuchal cord x1; normal-appearing uterus and ovaries; tubal adhesions consistent with prior infection Description of Procedure The patient is taken to the operating room and placed under spinal anesthesia in the dorsal supine position with a leftward tilt. Once anesthesia was deemed adequate she was prepped and draped in the usual sterile fashion. Trexi retractor is used. A Pfannenstiel skin incision was made through the lower incision and carried down to the underlying layer of fascia which was nicked in the midline with a scalpel. The incision was extended laterally using Mancilla scissors. [facility] was used to tent the fascia which was then dissected off using sharp dissection due to adhesions. The peritoneum tented and entered with Metzenbaum and extended with blunt traction. A dense band of tissue the right was sharply dissected. The bladder blade is placed and the vesicouterine peritoneum was noted to be very high upon the incision. This is grasped with a Peon and entered with Metzenbaum scissors. The incision was extended laterally and the bladder flap created using sharp and blunt dissection. The bladder blade is replaced.The lower uterine segment was incised in a transverse fashion with the scalpel and extended laterally using blunt traction. The membranes are ruptured and clear fluid is noted. The 's head was brought up into the incision and delivered while the head start assistant teacher applied fundal pressure. The infant was fully delivered and the nuchal cord reduced. The was handed to the waiting nursery nurse. Placenta was removed using manual traction after cord blood and cord gases were taken. The uterus is cleared of all clots and debris and exteriorized. The uterine incision was closed using 0 Monocryl in a running locked stitch with the same suture used to imbricate. Good hemostasis is noted. Patient was asked 1 additional time if she wanted to proceed with sterilization and she did. The right tube was grasped with a [place] and crossclamped the lower 2/3 with [place] clamp. The emilia stitch was placed and when asked to flash the head start assistant teacher removed the clamp. The distal end of the tube was not included in the stitch therefore it was grasped with a clamp and suture ligated with 0 Vicryl. Good hemostasis is noted at tubal site. The left tube is grasped with a Mukesh in the center portion as the fimbriated end is very densely adherent to the ovary. Approximately 5cm of tube are clamped using a Z clamp. A Chastity stitch is placed and again when asked to flash the head start assistant teacher removed the clamp. Two additional sutures are required for hemostasis. The uterus was returned to the abdomen after removing clots from the cul-de-sac. The incision and the 2 pedicles are inspected and noted to be hemostatic. The bladder flap has 1 bleeding vessel that was cauterized and appears to be oozing minimally. The Hemoderm was placed between the bladder flap in the incision. The fascia was then closed using 0 Vicryl in a running fashion. Subcutaneous tissues are irrigated and made hemostatic using Bovie cautery. Skin incision was closed using 4-0 Vicryl in a subcuticular fashion. Dermaflex is placed over the incision and once dry the Mepilex dressing is placed. Sponge, needle, and instrument counts are correct per the OR staff. The patient was given Ancef 3g prior to incision. Estimated Blood Loss 180 Drains Yes ( Edward catheter) Packing No Pathology Yes ( bilateral partial tubal segments) Complications No immediate complications Condition Stable Disposition Floor
--- NOTE | 2022-09-29 08:11 | PM.OBDSVD ---
DS: Admitting Diagnosis Discharge Date 10/01/22 Admitting Diagnosis intrauterine at 39 weeks previous section x3 request sterilization DS: Discharge Diagnosis Discharge Diagnosis (1) delivery delivered: Code(s): O82 - Encounter for delivery without indication Status: Acute (2) 39 weeks gestation of : Code(s): Z3A.39 - 39 weeks gestation of Status: Acute (3) History of section: Code(s): Z98.891 - History of uterine scar from previous surgery Status: Acute (4) Encounter for sterilization: Code(s): Z30.2 - Encounter for sterilization Status: Acute OB - DS: Summary OB Procedures : NST and Ultrasound OB Procedures Intrapartum: low cervical, transverse and Tubal ligation OB Procedures: : None Peripartum Data Infant Delivery Method: Section Procedures: Procedures Operation Date: 09/29/22 07:30 <No data on this case meets the specified criteria> complications: none Status at Discharge Functional status at discharge: independent ambulation Overall status at discharge: patient is progressing back to baseline Time Spent with Patient Time attestation: Total time spent providing and/or coordinating discharge services: DS: Data Data Completed and Pending Labs on day of discharge: Labs from last 24 hours 09/29/22 05:38 HIV 1&2 Ab/P24 Ag 4thGn Negative Discharge Plan Discharge Attending physician on discharge: Marsha Wagner Discharging Clinician: Marsha Wagner Anticipated Discharge Date/Time: 10/01/22 08:13 Patient Disposition: Home, Self-Care Activity: may shower, may drive after 2 weeks and pelvic rest Diet: regular Wound Care Instructions: keep dressing dry Patient Instructions: Antibiotic Form Stand Alone Forms: General Discharge Information Follow-up/Referrals: Marsha Wagner MD [Physician] - 1 Week ( and 6 week) Discharge Medications: New oxycodone-acetaminophen [Percocet] 5-325 mg tablet 1 tablet PO Q6H PRN (Reason: pain) Qty: 30 0RF Continued PNV #[id number] 30 mg iron-10 mg iron-1 mg capsule 1 cap PO DAILY acyclovir 800 mg Tablet 800 mg PO DAILY ergocalciferol (vitamin D2) [Vitamin D2] 1,250 mcg (50,000 unit) Capsule 1,250 mcg PO WEEKLY Date of admission: 09/29/22 04:49 Primary Care Provider: UNKNOWN,DOCTOR Admitting Provider: Marsha Wagner Attending physician on admission: Marsha Wagner Condition: Stable
[2022-09-29] MEDS: fentaNYL CITRATE INJ (*CRX) 100 MCG/2 ML VIAL 25 MCG IV PUSH ×3 (08:41→10:20)
[2022-09-29] MEDS: OXYTOCIN 30 UNITS/NS 500 ML 30 UNITS/500 ML BAG 125 UNITS IV CONT (09:34)
--- NOTE | 2022-09-29 10:35 | PC.NURSE ---
Patient transferred to post room #[id number] via ( Stretcher ). Support person present. Oriented to unit, room, information board, rooming in, admission packet and security measures. Patient verbalizes understanding.
[2022-09-29] MEDS: oxyCODONE/ACETAMINOPHEN (*CRX) 5-325 MG TABLET 2 TABLET PO ×4 (10:53→22:53)
[2022-09-29] MEDS: DOCUSATE SODIUM 100 MG CAPSULE PO ×2 (10:54→18:40)
[2022-09-29] MEDS: DEXTROSE 5%/0.45% SOD CHL 1,000 ML 125 ML IV CONT (10:56)
[2022-09-29] MEDS: ACYCLOVIR 400 MG TABLET PO (22:35)
[2022-09-30] MEDS: oxyCODONE/ACETAMINOPHEN (*CRX) 5-325 MG TABLET 2 TABLET PO ×5 (03:52→20:40)
[2022-09-30 04:00] VITALS: BP 99/68; PULSE 78; RESP 16; TEMP 36.4
[2022-09-30 05:28] LABS: Basophils Absolute Auto 0.1 K/mm3 (0.0-0.1); Basophils Percent Auto 0.4 % (0.2-1.2); Eosinophils Percent Auto 0.2 % (0-4.4); Hematocrit 34.8 % (37.0-47.0); Hemoglobin 11.6 g/dL (12.0-15.0); Immature Granulocyte Absolute 0.11 K/mm3 (0.00-0.031); Immature Granulocyte Percent A 0.8 % (0-0.5); Lymphocytes Absolute Auto 2.79 K/mm3 (0.9-3.2); Mean Corpuscular HGB Conc 33.3 g/dl (32-36); Mean Corpuscular Hemoglobin 29.9 pg (26-34); Mean Corpuscular Volume 89.7 fl (80-100); Mean Platelet Volume 8.9 fl (7.4-10.4); Monocytes Absolute Auto 0.7 K/mm3 (0.1-0.6); Monocytes Percent Auto 4.9 % (2.6-8.5); Neutrophils Absolute Auto 10.3 K/mm3 (1.3-6.7); Neutrophils Percent Auto 73.7 % (45.5-73.1); Platelet Count Result 238 k/mm3 (150-375); Red Blood Count 3.88 M/mm3 (4.2-5.4); Red Cell Distribution Width 13.3 % (11.5-14.5)
--- NOTE | 2022-09-30 07:38 | PM.OBPNVD ---
OB - PN: Subj Subjective Date/time seen: 09/30/22 07:38 Patient comments: no complaints and pain well controlled baby status: doing well OB - PN: Obj Data Labs 09/30/22 04:03 Labs: Laboratory Results - last 24 hr 09/30/22 09/30/22 04:02 04:03 WBC 14.0 H RBC 3.88 L Hgb 11.6 L Hct 34.8 L MCV 89.7 MCH 29.9 MCHC 33.3 RDW 13.3 Plt Count 238 MPV 8.9 Immature Gran % (Auto) 0.8 H Neut % (Auto) 73.7 H Lymph % (Auto) 20.0 [place] % (Auto) 4.9 Eos % (Auto) 0.2 Baso % (Auto) 0.4 Lymph # (Auto) 2.79 [place] # (Auto) 0.7 H Eos # (Auto) 0.0 Baso # (Auto) 0.1 Abs Immat Gran (auto) 0.11 H Absolute Neuts (auto) 10.3 H Absolute Nucleated RBC 0.0 Nucleated RBC % 0.0 Blood Type O Negative Antibody Screen TNP Screen Negative Baby's Blood Type O pos Baby's SUNITHA Negative Doses of RhIg Required 1 OB - PN A/P Plan day: 1 Plan: routine care Time Spent With Patient Time: Total time spent is greater than 50% in coordination of care (as documented) at patient's floor/unit and/or counseling patient: Exam Narrative: bandage c/d/i : Bimanual exam- vagina & uterus: other (Uterus firm, nt @U)
[2022-09-30] MEDS: DOCUSATE SODIUM 100 MG CAPSULE PO ×2 (08:18→16:38)
[2022-09-30] MEDS: ACYCLOVIR 400 MG TABLET PO (08:21)
[2022-09-30 08:30] VITALS: BP 105/66; PULSE 100; RESP 16; TEMP 36.5; O2SAT 100
[2022-09-30] MEDS: RHO(D) IMMUNE GLOBULIN 300 MCG/2 ML SYRINGE IM (10:03)
--- NOTE | 2022-09-30 16:20 | WPDANLDNPN2 ---
Anes-Prog Note L&D-Neuraxial Date/Time: 09/30/22 16:20 Neuraxial medications: intrathecal PF morphine Opiod-related complaints: none Patient feedback: Patient satisfied with post-operative pain management.
--- NOTE | 2022-09-30 16:22 | WPDANLDPN2 ---
Anes-Prog Note L&D Date/Time: 09/30/22 16:22 Comfortable throughout: section Neuraxial method: spinal Epidural/Spinal procedure site: clean & non-tender Neuro status: Neuro function grossly intact. Cardiovascular status: normal Respiratory status: normal Airway patency: baseline Mental status: baseline Post-Op hydration status: normal Vital Signs: Last Vital Signs Temp 97.7 F 09/30/22 08:30 Pulse 100 09/30/22 08:30 Resp 16 09/30/22 08:30 BP 105/66 09/30/22 08:30 Pulse Ox 100 09/30/22 08:30 O2 Del Method Room Air 09/30/22 08:00 Pain score (VAS): 2 I/O: Intake & Output 09/30/22 09/30/22 09/30/22 07:59 15:59 23:59 Intake Total 480 Output Total 2200 800 Balance -2200 -320 Patient feedback: Patient satisfied with anesthetic care.
[2022-09-30 18:52] VITALS: BP 129/64; PULSE 82; RESP 18; TEMP 36.5; O2SAT 100
[2022-10-01] MEDS: oxyCODONE/ACETAMINOPHEN (*CRX) 5-325 MG TABLET 2 TABLET PO ×4 (00:38→12:32)
[2022-10-01 06:55] VITALS: BP 139/70; PULSE 81; RESP 18; TEMP 36.3; O2SAT 96
[2022-10-01] MEDS: ACYCLOVIR 400 MG TABLET PO (08:44)
[2022-10-01] MEDS: DOCUSATE SODIUM 100 MG CAPSULE PO (08:46)
[2022-10-01] MEDS: MULTIVIT/MIN/PREN/FOL AC/IRON TABLET 1 TAB PO (08:46)
--- NOTE | 2022-10-01 10:52 | PM.OBPNVD ---
OB - PN: Subj Subjective Date/time seen: 10/01/22 10:53 Patient comments: no complaints and pain well controlled baby status: doing well OB - PN: Obj Data Labs 09/30/22 04:03 OB - PN A/P Plan day: 2 Plan: routine care and discharge home Time Spent With Patient Time: Total time spent is greater than 50% in coordination of care (as documented) at patient's floor/unit and/or counseling patient: Exam Narrative: inc c/d/i : Bimanual exam- vagina & uterus: other (Uterus firm, nt @U)
== END 2022-10-01 15:06 | disposition home or self-care (01) | DRG 784 ==
LOC: ANHLDR 08:13 → ANHOB2 10:40
PROVIDERS: Admitting Provider Obstetrics & Gynecology Gynecology; Visit Provider Obstetrics & Gynecology Gynecology
PROC: 10D00Z1 Extraction of Products of Conception, Low, Open Approach (ICD-10-PCS; CPT 59514; principal; 2022-09-29 07:30)
DX: O34.219 Maternal care for unspecified type scar from previous cesarean delivery (principal); O98.52 Other viral diseases complicating childbirth; Z30.2 Encounter for sterilization; B00.9 Herpesviral infection, unspecified; O99.214 Obesity complicating childbirth; O69.1XX0 Labor and delivery complicated by cord around neck, with compression, not applicable or unspecified; O99.824 Streptococcus B carrier state complicating childbirth; Z3A.39 39 weeks gestation of pregnancy; Z37.0 Single live birth; Z90.49 Acquired absence of other specified parts of digestive tract
CPT/HCPCS: 36415; 85025; 85461; 86592; 86703; 86850; 86880; 86900; 86901; 88302; 90384; A9270; G0432; J0690; J1100; J1200; J2274; J2370; J2405; J2590; J2790; J3010; J7120

== ENCOUNTER 2022-12-16 15:00 | Emergency (ER) | payer OTHER, SELFPAY ==
--- NOTE | ~2022-12-16 | US_ITS ---
EXAMINATION: US pelvic complete w TV DATE: 12/16/2022 16:00 INDICATION: Irregular bleeding. Evaluate for retained products of conception. Comparison:No prior studies for comparison. TECHNIQUE: Multiple transabdominal and endovaginal sonographic images of the pelvis performed. FINDINGS: The uterus measures 10.2 x 4.9 x 5.6 cm. The endometrium is thickened, ill-defined and hete rogeneous measuring 1.3 cm. There is a uterine fibroid measuring 1.9 cm anteriorly. The right ovary measures 3.9 x 2.9 x 2.3 cm and the left ovary measures 2.9 x 1.4 x 1.3 cm. There ar e small follicles in each ovary. Normal doppler signal in both ovaries. There is no free fluid in the pelvis. There are no abnormal masses seen on either side. IMPRESSION: 1. Thickened ill-defined heterogeneous endometrium measuring 1.3 cm. Cannot exclude retained products of conception. Reviewed, dictated and finalized at location A. IMPRESSION: 1. Thickened ill-defined heterogeneous endometrium measuring 1.3 cm. Cannot exc lude retained products of conception.
[2022-12-16 15:01] VITALS: BP 135/84; PULSE 94; RESP 16; TEMP 36.3; O2SAT 100
[2022-12-16 15:33] LABS: Basophils Percent Auto 0.5 % (0.2-1.2); Eosinophils Absolute Auto 0.1 K/mm3 (0-0.3); Hematocrit 44.2 % (37.0-47.0); Hemoglobin 14.5 g/dL (12.0-15.0); Immature Granulocyte Absolute 0.02 K/mm3 (0.00-0.031); Immature Granulocyte Percent A 0.2 % (0-0.5); Lymphocytes Absolute Auto 1.59 K/mm3 (0.9-3.2); Lymphocytes Percent Auto 18.3 % (18.3-44.2); Mean Corpuscular HGB Conc 32.8 g/dl (32-36); Mean Corpuscular Hemoglobin 29.1 pg (26-34); Mean Corpuscular Volume 88.8 fl (80-100); Mean Platelet Volume 8.8 fl (7.4-10.4); Monocytes Absolute Auto 0.5 K/mm3 (0.1-0.6); Neutrophils Absolute Auto 6.4 K/mm3 (1.3-6.7); Platelet Count Result 290 k/mm3 (150-375); Red Blood Count 4.98 M/mm3 (4.2-5.4); Red Cell Distribution Width 12.6 % (11.5-14.5); White Blood Count 8.7 K/mm3 (4.5-10.0)
[2022-12-16 15:44] LABS: Alanine Aminotransferase 30 U/L (6-35); Albumin Level 4.7 g/dL (3.5-5.1); Alkaline Phosphatase 82 U/L (38-126); Anion Gap 6 mmol/L (8-16); Aspartate Amino Transferase 30 U/L (14-36); Bilirubin,Total 0.8 mg/dL (0.2-1.3); Blood Urea Nitrogen 14 mg/dL (7-17); Calcium 8.9 mg/dL (8.4-10.2); Carbon Dioxide 28 mmol/L (22-30); Chloride 101 mmol/L (98-107); Estimated CRCL calculation 136 ml/min; Estimated Glomerular Filt Rate > 60; Glucose 100 mg/dL (65-110); Potassium 3.7 mmol/L (3.4-5.0); Sodium 135 mmol/L (137-145)
[2022-12-16 15:45] LABS: Prothrombin Time 12.9 Seconds (11.1-14.7)
[2022-12-16] MEDS: SODIUM CHLORIDE 0.9% IV 1,000 ML 999 ML IV CONT (15:55)
[2022-12-16 16:01] LABS: Beta HCG Quantitative < 2.39 mIU/ML
--- NOTE | 2022-12-16 16:01 | ED.GENADULT ---
HPI - General Adult General Chief complaint: Vaginal Bleeding Stated complaint: Vaginal Bleeding Time Seen by Provider: 12/16/22 15:03 History of Present Illness HPI narrative: 27 y/o female. PMHx GABRIEL, MDD, GERD, Venereal disease. Presents to ED today with acute complaints of heavy vaginal bleeding, ongoing for the past 48 hours. She reports to have had delivered a healthy child in September 2022 via . -Since, has had abnormal vaginal bleeding, heavy with clotting. She reports to have started bleeding once more 48 hours ago, and 'much heavier' than her usual menstrual cycle. -Has used 2-3 pads today, not filling > 1 PPH according to client. -Denies fever. -Positive fatigue. -No dizziness, chest pain, palpitations, dyspnea. -No abdominal pain, N/V. -Pelvic cramping, no discharge. -Denies urinary concerns. Established w/OP MONITOR CAR OPERATOR MD Marsha Wagner. No additional acute c/o upon PE. Related Data Home Medications Medication Instructions Recorded Confirmed vitamin#30 30 mg iron-10 1 cap PO DAILY 01/03/20 09/29/22 mg iron-folic acid 1 mg-omg3 capsule acyclovir 800 mg tablet 800 mg PO DAILY 09/03/22 09/03/22 ergocalciferol (vitamin D2) 1,250 1,250 mcg PO WEEKLY 09/03/22 09/03/22 mcg (50,000 unit) capsule (Vitamin D2) Allergies Allergy/AdvReac Type Severity Reaction Status Date / Time ibuprofen Allergy Intermediate Other Verified 12/16/22 15:06 iron Allergy Intermediate Other Verified 12/16/22 15:06 amoxicillin Allergy Unknown vomiting Verified 12/16/22 15:06 morphine Allergy Unknown hives Verified 12/16/22 15:06 clavulanic acid AdvReac Intermediate Nausea and Verified 12/16/22 15:06 Vomiting Review of Systems Review of Systems: CONSTITUTIONAL: Denies fever, chills, sweats. CARDIOVASCULAR: Denies chest pain, palpitations, edema. RESPIRATORY: Denies dyspnea, wheezing, cough GASTROINTESTINAL: Denies abdominal pain, nausea, vomiting, diarrhea. GENITOURINARY: Heavy vaginal bleeding. Denies dysuria, hematuria, abnormal discharge SKIN: Denies rash or itching. MUSCULOSKELETAL: Denies acute back pain, joint pain, or myalgia. NEUROLOGIC: Denies dizziness, numbness, or focal weakness. PSYCHIATRIC: Denies anxiety or depression. All other systems have been reviewed: Unless noted remaining ROS Negative. [facility] Past Medical History Medical History Abnormal Pap smear of cervix 08/24/09 HGSIL (+) HPV; 03/11/10 LGSIL (+) HPV; 12/16/10 ASCUS (+) HPV; 02/23/11 colp Anxiety Chlamydia 2017 Dizziness GBS (group B Streptococcus carrier), +RV culture, currently GERD (gastroesophageal reflux disease) Gonorrhea 2016 Heterozygous MTHFR mutation [id number] HSV (herpes simplex virus) infection Human papilloma virus Obesity Rh negative status during STD (sexually transmitted disease) Surgical History Surgical History History of appendectomy History of section 03/17/14 primary c/s--failure to dilate 2016 2019 History of colposcopy with cervical biopsy 09/10/09 benign 02/23/11 SANDEEP II + HPV History of ovarian cystectomy 07/21/16 lscope lt ovarian cystectomy--no cystectomy lt ovarian cyst drained, no path History of placement of ear tubes 2002 Hx of cholecystectomy 07/01/14 Family History Family History Father Diabetes mellitus Heart disease COPD (chronic obstructive pulmonary disease) Lung cancer Social History Social History Smoking status: Never smoker Second hand tobacco smoke exposure: No Alcohol intake: never Substance use: current Substance use type: does not use Last use: last time Jul 2022 Lack of Transportation: No Lack of Food: Never True Current Housing: I Have Housing Concerned About Future Ho
== END 2022-12-16 18:09 | disposition home or self-care (01) ==
PROVIDERS: Emergency Provider Nurse Practitioner Adult Health
DX: N93.8 Other specified abnormal uterine and vaginal bleeding (principal); K21.9 Gastro-esophageal reflux disease without esophagitis; E66.9 Obesity, unspecified; Z68.32 Body mass index [BMI] 32.0-32.9, adult; R93.89 Abnormal findings on diagnostic imaging of other specified body structures; D25.9 Leiomyoma of uterus, unspecified
CPT/HCPCS: 36415; 76830; 76856; 80053; 81025; 84702; 85025; 85610; 96360; 99284; J7030

== ENCOUNTER 2023-10-17 17:50 | Emergency (ER) | payer OTHER, SELFPAY ==
[2023-10-17 18:03] VITALS: BP 123/78; PULSE 67; RESP 20; TEMP 36.2; O2SAT 100
[2023-10-17 19:58] LABS: Strep Group A RT-PCR NOT DETECTED (Negative)
--- NOTE | 2023-10-17 20:30 | ED.GENADULT ---
HPI - General Adult General Chief complaint: Upper Respiratory Infection Stated complaint: st Time Seen by Provider: 10/17/23 19:41 History of Present Illness HPI narrative: 27-year-old female presenting to the emergency department for evaluation of persistent sore throat. Patient states she was diagnosed with strep throat last week but is still having sore throat even after completing her antibiotics. Patient denies any cough fever or shortness of breath. Related Data Home Medications Medication Instructions Recorded Confirmed vitamin#30 30 mg iron-10 1 cap PO DAILY 01/03/20 09/29/22 mg iron-folic acid 1 mg-omg3 capsule acyclovir 800 mg tablet 800 mg PO DAILY 09/03/22 09/03/22 ergocalciferol (vitamin D2) 1,250 1,250 mcg PO WEEKLY 09/03/22 09/03/22 mcg (50,000 unit) capsule (Vitamin D2) Allergies Allergy/AdvReac Type Severity Reaction Status Date / Time ibuprofen Allergy Intermediate Other Verified 12/16/22 15:06 iron Allergy Intermediate Other Verified 12/16/22 15:06 amoxicillin Allergy Unknown vomiting Verified 12/16/22 15:06 morphine Allergy Unknown hives Verified 12/16/22 15:06 clavulanic acid AdvReac Intermediate Nausea and Verified 12/16/22 15:06 Vomiting Review of Systems Review of Systems: All systems reviewed & are unremarkable except as noted in HPI and below PMFSH Past Medical History Medical History Abnormal Pap smear of cervix 08/24/09 HGSIL (+) HPV; 03/11/10 LGSIL (+) HPV; 12/16/10 ASCUS (+) HPV; 02/23/11 colp Anxiety Chlamydia 2017 Dizziness GBS (group B Streptococcus carrier), +RV culture, currently GERD (gastroesophageal reflux disease) Gonorrhea 2017 Heterozygous MTHFR mutation [id number] HSV (herpes simplex virus) infection Human papilloma virus Obesity Rh negative status during STD (sexually transmitted disease) Surgical History Surgical History History of appendectomy History of section 03/17/14 primary c/s--failure to dilate 2016 2019 History of colposcopy with cervical biopsy 12/10/09 benign 02/23/11 SANDEEP II + HPV History of ovarian cystectomy 07/21/16 lscope lt ovarian cystectomy--no cystectomy lt ovarian cyst drained, no path History of placement of ear tubes 2002 Hx of cholecystectomy 07/01/14 Family History Family History Father Diabetes mellitus Heart disease COPD (chronic obstructive pulmonary disease) Lung cancer Social History Social History Smoking status: Never smoker Second hand tobacco smoke exposure: No Alcohol intake: never Substance use: current Substance use type: does not use Last use: last time Jul 2022 Lack of Transportation: No Lack of Food: Never True Current Housing: I Have Housing Concerned About Future Housing: No Difficulty Paying Gas/Electric Bills: No Difficulty Paying for Meds: No Currently Unemployed: No Education: High School Diploma/GED Difficulty w/ Childcare or Family Care: No Living arrangements: with friend(s) Occupation/Education: unemployed Gender identity (if verbalized by the patient): Female Sexual Orientation (if Verbalized by the Patient): Straight or Heterosexual Spiritual care concerns: No Agree to blood products: Yes Exam Narrative: APPEARANCE: Well appearing, no pain, no distress, well-nourished. HEAD: normocephalic, atraumatic. EYES: PERRLA/EOMI, conjunctivae clear. NOSE: Normal no drainage NECK: Supple. No adenopathy, no masses. RESPIRATORY: Airway patent, respirations nonlabored. Clear to auscultation bilaterally, no rales, rhonchi, wheezing. CARDIOVASCULAR: Regular rate and rhythm without murmurs rubs or gallops. ABDOMINAL: Soft, nontender, nondistended, normal bowel sounds MUSCULOSKELE
[2023-10-17 20:40] LABS: Influenza A QL RT-PCR Negative (Negative); Influenza B QL RT-PCR Negative (Negative); RSV RNA, RT-PCR Negative (Negative); SARS-CoV-2 RNA PCR Negative (Negative)
[2023-10-17 20:58] VITALS: BP 134/76; PULSE 77; RESP 16; TEMP 36.7; O2SAT 100
== END 2023-10-17 20:59 | disposition home or self-care (01) ==
PROVIDERS: Student in an Organized Health Care Education/Training Program; Emergency Provider Emergency Medicine
DX: J02.9 Acute pharyngitis, unspecified (principal); Z20.822 Contact with and (suspected) exposure to COVID-19
CPT/HCPCS: 87637; 87651; 99283

== ENCOUNTER 2024-03-16 14:05 | Observation (INO) | payer OTHER, SELFPAY ==
--- NOTE | ~2024-03-16 | CT_ITS ---
EXAMINATION: CT hand RT w con DATE: 03/17/2024 09:00 INDICATION: Cellulitis and abscess at the right hand. TECHNIQUE: High resolution computed tomography (CT) of the right hand was performed with 100 mL Omnip aque-350 intravenous contrast. Additional sagittal and coronal reconstructions were performed. The d ose-length product was 531.78 mGy-cm. COMPARISON: None FINDINGS: There is diffuse subcutaneous edema throughout the right hand consistent with provided history of melany lulitis. This most prominent at the palmar to the heads of the second and third metacarpals where the re is an irregular shaped peripherally enhancing abscess which measures 2.2 cm proximal to distal and 1.8 x 1.0 cm in maximal transaxial dimensions. This extends along the dorsal/ulnar margin of the fle xor tendon sheath to the index digit and plantar/radial to the palmar vasculature supplying the ulnar side of the second digit and radial side of the third digit. No evident extension within the tendon sheath or involvement of the adjacent musculature. No soft tissue gas or radiopaque foreign bodies. N ormal bone alignment. No fracture. No cortical erosions or periosteal reaction to suggest ostomy myel itis. Joint spaces are normal with no evident joint effusions. IMPRESSION: 1. 2.2 x 1.8 x 1.0 cm subcutaneous abscess palmar to the heads of the second and third metacarpals. Reviewed, dictated and finalized at location A. IMPRESSION: 1. 2.2 x 1.8 x 1.0 cm subcutaneous abscess palmar to the heads of the second an d third metacarpals.
[2024-03-16 14:44] VITALS: BP 114/57; PULSE 63; RESP 18; TEMP 36.9; O2SAT 98
[2024-03-16 16:36] LABS: Basophils Percent Auto 0.4 % (0.2-1.2); Eosinophils Absolute Auto 0.1 K/mm3 (0-0.3); Eosinophils Percent Auto 0.9 % (0-4.4); Hematocrit 37.7 % (37.0-47.0); Hemoglobin 12.4 g/dL (12.0-15.0); Immature Granulocyte Absolute 0.03 K/mm3 (0.00-0.031); Immature Granulocyte Percent A 0.3 % (0-0.5); Lymphocytes Absolute Auto 1.94 K/mm3 (0.9-3.2); Lymphocytes Percent Auto 18.4 % (18.3-44.2); Mean Corpuscular HGB Conc 32.9 g/dl (32-36); Mean Corpuscular Hemoglobin 28.8 pg (26-34); Mean Corpuscular Volume 87.5 fl (80-100); Mean Platelet Volume 8.8 fl (7.4-10.4); Monocytes Absolute Auto 0.7 K/mm3 (0.1-0.6); Neutrophils Absolute Auto 7.7 K/mm3 (1.3-6.7); Platelet Count Result 249 k/mm3 (150-375); Red Blood Count 4.31 M/mm3 (4.2-5.4); Red Cell Distribution Width 12.8 % (11.5-14.5); White Blood Count 10.6 K/mm3 (4.5-10.0)
--- NOTE | 2024-03-16 16:41 | ED.GENADULT ---
HPI - General Adult General Chief complaint: Wound/Laceration Stated complaint: hand swelling/infection Time Seen by Provider: 03/16/24 15:58 History of Present Illness HPI narrative: Patient is a 28-year-old female who presents ER with right hand swelling. Worsening over the last week. It began 3 days after being on the monkey bars. She has had progressive swelling. She went to an outside hospital but had a bad interaction and so she left. She has come here seeking additional care. She has formed a pus pocket to the palm of the right hand. She has difficulty with extension of her fingers due to pain most notably digit 2 and 3. Related Data Home Medications Medication Instructions Recorded Confirmed vitamin#30 30 mg iron-10 1 cap PO DAILY 01/03/20 09/29/22 mg iron-folic acid 1 mg-omg3 capsule acyclovir 800 mg tablet 800 mg PO DAILY 09/03/22 09/03/22 ergocalciferol (vitamin D2) 1,250 1,250 mcg PO WEEKLY 09/03/22 09/03/22 mcg (50,000 unit) capsule (Vitamin D2) Allergies Allergy/AdvReac Type Severity Reaction Status Date / Time ibuprofen Allergy Intermediate Other Verified 03/16/24 16:04 iron Allergy Intermediate Other Verified 03/16/24 16:04 amoxicillin Allergy Unknown vomiting Verified 03/16/24 16:04 morphine Allergy Unknown hives Verified 03/16/24 16:04 clavulanic acid AdvReac Intermediate Nausea and Verified 03/16/24 16:04 Vomiting Review of Systems Review of Systems: All systems reviewed & are unremarkable except as noted in HPI and below Constitutional: Constitutional: Reports no additional constitutional complaints Cardiovascular: Cardiovascular: Reports no additional cardiovascular complaints Respiratory: Respiratory: Reports no additional respiratory complaints Musculoskeletal: Musculoskeletal: Denies arthralgias and Denies joint swelling Comments: Right hand swelling and pain Integumentary/Breasts: Skin/Breast: Denies rash Comments: abscess Neurologic: Reports system reviewed and no additional complaints, except as documented PMFSH Past Medical History Medical History Abnormal Pap smear of cervix 08/24/09 HGSIL (+) HPV; 03/11/10 LGSIL (+) HPV; 12/16/10 ASCUS (+) HPV; 02/23/11 colp Anxiety Chlamydia 2017 Dizziness GBS (group B Streptococcus carrier), +RV culture, currently GERD (gastroesophageal reflux disease) Gonorrhea 2017 Heterozygous MTHFR mutation [id number] HSV (herpes simplex virus) infection Human papilloma virus Obesity Rh negative status during STD (sexually transmitted disease) Surgical History Surgical History History of appendectomy History of section 03/17/14 primary c/s--failure to dilate 2016 2019 History of colposcopy with cervical biopsy 09/10/09 benign 02/23/11 SANDEEP II + HPV History of ovarian cystectomy 07/21/16 lscope lt ovarian cystectomy--no cystectomy lt ovarian cyst drained, no path History of placement of ear tubes 2002 Hx of cholecystectomy 07/01/14 Family History Family History Father Diabetes mellitus Heart disease COPD (chronic obstructive pulmonary disease) Lung cancer Social History Social History Smoking status: Never smoker Second hand tobacco smoke exposure: No Alcohol intake: never Substance use: current Substance use type: does not use Last use: last time Jul 2022 Lack of Transportation: No Lack of Food: Never True Current Housing: I Have Housing Concerned About Future Housing: No Difficulty Paying Gas/Electric Bills: No Difficulty Paying for Meds: No Currently Unemployed: No Education: High School Diploma/GED Difficulty w/ Childcare or Family Care: No Living arrangements: with friend(s) Occupation/Educatio
[2024-03-16 16:45] LABS: Alanine Aminotransferase 12 U/L (6-35); Albumin Level 3.6 g/dL (3.5-5.1); Alkaline Phosphatase 63 U/L (38-126); Anion Gap 5 mmol/L (4-12); Aspartate Amino Transferase 22 U/L (14-36); Bilirubin,Total 0.7 mg/dL (0.2-1.3); Blood Urea Nitrogen 12 mg/dL (7-17); Calcium 8.3 mg/dL (8.4-10.2); Carbon Dioxide 28 mmol/L (22-30); Chloride 106 mmol/L (98-107); Estimated CRCL calculation 128 ml/min; Estimated Glomerular Filt Rate > 60; Glucose 96 mg/dL (65-110); Potassium 3.9 mmol/L (3.4-5.0); Sodium 139 mmol/L (137-145)
[2024-03-16 16:46] LABS: Lactic Acid Reflex 0.9 mmol/L (0.7-2.0)
[2024-03-16] MEDS: fentaNYL CITRATE INJ (*CRX) 100 MCG/2 ML VIAL 50 MCG IV PUSH ×2 (17:57→21:20)
[2024-03-16 19:35] VITALS: BP 142/83; PULSE 65; RESP 18; O2SAT 100
[2024-03-16] MEDS: VANCOMYCIN 1,500 MG/NS 500 ML 1,500 MG/500 ML BAG 250 MG IVPB (19:35)
[2024-03-16 19:46] VITALS: BP 124/91; PULSE 68; RESP 18; O2SAT 100
--- NOTE | 2024-03-16 19:57 | PC.NURSE ---
pt was stating while this rn was helping another patient, I need pain medications, I am in so much pain. Nothing is working, I think I need more fentanyl, that did make me shaky, I am just so cold. I need enough to make me sleep . this rn stated she would be over to help patient when I was done helping another patient. Pt stated using profanity. This rn went to patient and stated she needed to avoid using profanity that it is a shared room. Pt raised her voice and stated, when I am going to another room, I am not saying it loud, just under my breath .
--- NOTE | 2024-03-16 19:57 | PM.IMHP ---
H&P: HPI History of Present Illness Date/Time: 03/16/24 19:57 Chief Complaint: R hand cellulitis Narrative: This is a 28-year-old female with no significant past medical history presents to the emergency room due to right hand swelling tenderness for the last 3-4 days was sitting at outside facility and sent home with antibiotics patient does not know how it happened, denies any fevers, rigors, chills, nausea, vomiting, generalized malaise, no night sweats. Review of Systems Review of Systems: Right hand swelling redness tenderness Constitutional: Constitutional: Denies chills, Denies fever(s), Denies malaise and Denies night sweats Eyes: Eyes: Denies change in vision ENT: Denies dysphagia, Denies nasal congestion and Denies odynophagia Cardiovascular: Cardiovascular: Denies chest pain, Denies radiating jaw, neck or arm pain and Denies palpitations Respiratory: Respiratory: Denies chest congestion, Denies cough and Denies dyspnea Gastrointestinal: Gastrointestinal: Denies abdominal pain, Denies diarrhea, Denies nausea and Denies vomiting Genitourinary: Genitourinary: Denies dysuria Musculoskeletal: Musculoskeletal: Reports other ( right hand swelling tenderness warmth redness) Integumentary/Breasts: Skin/Breast: Reports swelling, Reports erythema and Reports skin swelling Neurologic: Denies focal weakness and Denies Sensory deficit (Neuro) Psychiatric: Psychiatric: Reports no additional psychiatric complaints and Reports as per HPI Endocrine: Endocrine: Denies cold intolerance, Denies heat intolerance, Denies polyphagia, Denies polydipsia, Denies polyuria and Denies palpitations Hematologic/Lymphatic: Hematologic/Lymphatic: Reports no additional hematologic/lymphatic complaints and Reports as per HPI Allergic/Immunologic: Allergic/Immunologic: Reports no additional allergic/immunologic complaints and Reports as per HPI [facility] Past Medical History Medical History Abnormal Pap smear of cervix 08/24/09 HGSIL (+) HPV; 03/11/10 LGSIL (+) HPV; 12/16/10 ASCUS (+) HPV; 02/23/11 colp Anxiety Chlamydia 2017 Dizziness GBS (group B Streptococcus carrier), +RV culture, currently GERD (gastroesophageal reflux disease) Gonorrhea 2017 Heterozygous MTHFR mutation [id number] HSV (herpes simplex virus) infection Human papilloma virus Obesity Rh negative status during STD (sexually transmitted disease) Surgical History Surgical History History of appendectomy History of section 03/17/14 primary c/s--failure to dilate 2016 2019 History of colposcopy with cervical biopsy 09/10/09 benign 02/23/11 SANDEEP II + HPV History of ovarian cystectomy 07/21/16 lscope lt ovarian cystectomy--no cystectomy lt ovarian cyst drained, no path History of placement of ear tubes 2002 Hx of cholecystectomy 07/01/14 Family History Family History Father Diabetes mellitus Heart disease COPD (chronic obstructive pulmonary disease) Lung cancer Social History Social History Smoking status: Never smoker Second hand tobacco smoke exposure: No Alcohol intake: never Substance use: never Substance use type: does not use Last use: last time Jul 2022 Do You Feel Safe in your Home?: Yes Lack of Transportation: No Lack of Food: Never True Current Housing: I Have Housing Concerned About Future Housing: No Difficulty Paying Gas/Electric Bills: No Difficulty Paying for Meds: No Currently Unemployed: No Education: Grade School Difficulty w/ Childcare or Family Care: No Living arrangements: with friend(s) Occupation/Education: unemployed Gender identity (if verbalized by the patient): Female Sexual Orientation (if Verbalized by the Patient): Straight or He
[2024-03-16] MEDS: ACETAMINOPHEN 325 MG TABLET 650 MG PO (21:20)
[2024-03-16] MEDS: SODIUM CHLORIDE 0.9% IV 1,000 ML 125 ML IV CONT (21:21)
[2024-03-16 22:00] VITALS: BP 122/86; PULSE 68; RESP 18; TEMP 36.8; O2SAT 100
--- NOTE | 2024-03-16 22:19 | ADMGEN ---
This patient, Isabela Francois, was admitted to 2 Medical Room 259-. Patient/family oriented to hospital policies and general routines including ID bracelet, bed and alarms, visiting hours, pain management, procedures, bathroom and other care routines, personal items, smoking policy, room service/diet, and visiting hours. Information on how to activate the Rapid Response Team has been discussed. Patient/Family are encouraged to report perceived risks to care and to ask questions if they do not understand what they are told or what they should do.
[2024-03-17] MEDS: traMADol HCL (*CRX) 50 MG TABLET PO (02:37)
[2024-03-17] MEDS: fentaNYL CITRATE INJ (*CRX) 100 MCG/2 ML VIAL 50 MCG IV PUSH (05:09)
[2024-03-17 05:11] LABS: Estimated CRCL calculation 166 ml/min; Estimated Glomerular Filt Rate > 60
[2024-03-17 08:09] LABS: Hematocrit 37.2 % (37.0-47.0); Mean Corpuscular HGB Conc 32.3 g/dl (32-36); Mean Corpuscular Hemoglobin 28.7 pg (26-34); Mean Platelet Volume 9.7 fl (7.4-10.4); Platelet Count Result 251 k/mm3 (150-375); Red Blood Count 4.18 M/mm3 (4.2-5.4); White Blood Count 11.3 K/mm3 (4.5-10.0)
[2024-03-17 08:27] LABS: Alanine Aminotransferase 11 U/L (6-35); Albumin Level 3.3 g/dL (3.5-5.1); Alkaline Phosphatase 64 U/L (38-126); Anion Gap 5 mmol/L (4-12); Aspartate Amino Transferase 20 U/L (14-36); Bilirubin,Total 0.5 mg/dL (0.2-1.3); Blood Urea Nitrogen 9 mg/dL (7-17); Calcium 8.2 mg/dL (8.4-10.2); Carbon Dioxide 22 mmol/L (22-30); Chloride 108 mmol/L (98-107); Estimated CRCL calculation 166 ml/min; Estimated Glomerular Filt Rate > 60; Glucose 93 mg/dL (65-110); Potassium 3.9 mmol/L (3.4-5.0); Sodium 135 mmol/L (137-145)
[2024-03-17 08:50] VITALS: BP 138/66; PULSE 73; RESP 18; TEMP 36.2; O2SAT 100
[2024-03-17] MEDS: VANCOMYCIN 1,500 MG/NS 500 ML 1,500 MG/500 ML BAG 250 MG IVPB ×2 (10:37→20:05)
[2024-03-17] MEDS: oxyCODONE/ACETAMINOPHEN (*CRX) 5-325 MG TABLET 1 TABLET PO ×3 (10:38→20:26)
[2024-03-17 12:46] LABS: MRSA (PCR) DETECTED (NOT DETECTE)
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
[2024-03-17 16:06] VITALS: BP 128/68; PULSE 71; RESP 19; TEMP 36.9; O2SAT 100
[2024-03-17 21:48] VITALS: BP 133/76; PULSE 78; RESP 18; TEMP 36.6; O2SAT 99
[2024-03-18] MEDS: diphenhydrAMINE HCl INJ 50 MG/ML VIAL IV PUSH (00:09)
[2024-03-18 05:15] VITALS: BP 135/77; PULSE 99; RESP 16; TEMP 36.6; O2SAT 100
[2024-03-18] MEDS: oxyCODONE/ACETAMINOPHEN (*CRX) 5-325 MG TABLET 1 TABLET PO ×3 (06:07→18:39)
[2024-03-18 07:17] LABS: Estimated CRCL calculation 144 ml/min; Estimated Glomerular Filt Rate > 60
[2024-03-18 07:32] LABS: Vancomycin Trough 9.9 ug/mL (10.0-20.0)
[2024-03-18 08:27] VITALS: O2SAT 99
[2024-03-18] MEDS: VANCOMYCIN 1,500 MG/NS 500 ML 1,500 MG/500 ML BAG 250 MG IVPB ×2 (09:01→20:11)
[2024-03-18] MEDS: polyethylene glycoL 3350 17 GM POWD.PACK PO (11:51)
--- NOTE | 2024-03-18 11:53 | PM.IMPN ---
Progress Note: A&P Assessment and Plan (1) Abscess of hand: Code(s): L02.519 - Cutaneous abscess of unspecified hand Status: Acute Assessment and Plan: Patient had developed a wound on her right hand that started out as a blister that she developed from using the monkey bars on a playground with her children. Wound with purulence drainage. Imaging: CT Hand 2.2 x 1.8 x 1.0 cm subcutaneous abscess palmar to the heads of the second and third metacarpals. I&D in the ED 03/16 Blood cultures and wound culture pending MRSA Nares positive, vancomycin started on 03/17 Analgesics as needed. Wound care consulted. Plastic surgery consulted for possible washout. (2) Cellulitis of right hand: Code(s): L03.113 - Cellulitis of right upper limb Status: Acute Assessment and Plan: See above. Subjective Date/time seen: 03/18/24 11:53 Interval history: Explained to patient the next steps in her treatment include getting a plastic surgery consultation as well as having the wound care help treat her hand. Patient is medically naive and it was explained to her why wound Care was not able to see her over the weekend due to them not being here. Assured patient that she was on appropriate antibiotic therapy for a positive MRSA swab. She is having discomfort in her hand after wound care saw the patient they assured that the new treatment should help give more comfort at the site of the wound where it will be covered. Exam Narrative: GENERAL: Comfortable, no acute distress HENMT: moist mucous membranes EYES: EOM intact b/l NECK: no lymphadenopathy RESPIRATORY: clear to auscultation, no increased respiratory effort CARDIO: Regular rate and rhythm GI: soft, nontender, bowel sounds present SKIN/EXTREMITIES: Blister/wound on the right palm approximately 2 cm in length with purulent drainage NEURO: PROM intact, answers questions appropriately, A&O x4 Objective Data Vital Signs Vital Signs: Vital Signs - 24 hr 03/17/24 16:06 03/17/24 21:48 03/17/24 20:00 Temperature 98.5 F 98 F Pulse Rate 71 78 Respiratory Rate 19 18 Blood Pressure 128/68 133/76 Pulse Oximetry 100 99 Oxygen Delivery Room Air Fraction of Inspired Oxygen 03/18/24 05:15 03/18/24 08:27 Temperature 97.8 F Pulse Rate 99 Respiratory Rate 16 Blood Pressure 135/77 Pulse Oximetry 100 99 Oxygen Delivery Room Air Fraction of Inspired Oxygen 21 Intake/Output Intake/Output: Intake & Output 03/15/24 03/16/24 03/17/24 03/18/24 23:59 23:59 23:59 23:59 Intake Total 2019 1100 Balance 2019 1100 Meds/Results Medications: Active Medications Generic Name Dose Route Start Last Admin Trade Name Freq PRN Reason Stop Dose Admin Acetaminophen 1,000 mg 03/17/24 01:28 Acetaminophen 500 Mg Tablet PO Q6H PRN Mild Pain (1-3) or Fever Al Hydrox/Mg Hydrox/Simethicone 30 ml 03/17/24 01:28 Mag Hydrox/Al Hydrox/Simeth 30 Ml Udc PO Q6H PRN Indigestion Hydromorphone HCl 1 mg 03/17/24 13:40 Hydromorphone Hcl Inj (*Crx) 1 Mg/Ml Syr IV PUSH Q3H PRN Pain Rated 7-10 Vancomycin HCl 1,500 mg in 500 mls @ 250 mls/hr 03/17/24 08:00 03/18/24 09:01 Vancomycin 1,500 Mg/Ns 500 Ml IVPB 250 mls/hr Q12H SHANDA Administration Ondansetron HCl 4 mg 03/17/24 01:28 Ondansetron Inj 4 Mg/2 Ml Vial IV PUSH Q6H PRN Nausea And Vomiting Oxycodone/Acetaminophen 1 tablet 03/17/24 13:41 03/18/24 06:07 Oxycodone/Acetaminophen (*Crx) 5-325 Mg Tablet PO 1 tablet Q4H PRN Administration Pain Rated 4-6 Polyethylene Glycol 17 gm 03/17/24 01:28 Polyethylene Glycol 3350 17 Gm Powd.Pack PO QAM PRN Constipation Radiology Results: ITS Impressions Hand CT 03/17/24 09:15 IMPRESSION: 1. 2.2 x 1.8 x 1.0 cm subcutaneous abscess palmar to the heads of the second and third metacarpals. Labs Labs: Laboratory Results - l
[2024-03-18 14:00] VITALS: BP 120/74; PULSE 60; RESP 21; TEMP 36.8; O2SAT 98
--- NOTE | 2024-03-18 16:47 | WPDCN ---
Assessment and Plan Assessment and plan (1) Abscess of hand: Code(s): L02.519 - Cutaneous abscess of unspecified hand Status: Acute Assessment and Plan: 28yo female with resolving right hand absces and cellulitis s/p I&D reveiwed impression and Dx and hopeful expectaiton for conitnued improvement discussed wound care Plan: 1) likley d/c/ home on po abx per primary 2) warm soaks and wound care BID 3) re-consult as needed or f/u outpatient HPI Data of Consult Date/Time: 03/18/24 16:47 Requesting Physician: Paula Allen APRN Primary Care Provider: UNKNOWN,DOCTOR Consult Narrative Narrative: Isabela Francois is a 28 year old female admitted for right hand palmar abscess. notes pain and swelling of hand for ~2 weeks and initially went to [facility] but was turned away. pain and swelling ocntinued to worsen and develeoped abscess in palm and went to [place] ER where it was I&D'd and admitted for iv abx cultures pending patient seen and examined at bedside noting interval improveent in swelling and able to move fingers more. 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 HSV (herpes simplex virus) infection Human papilloma virus Obesity Rh negative status during STD (sexually transmitted disease) Surgical History Surgical History History of appendectomy History of section 03/17/14 primary c/s--failure to dilate 2016 2019 History of colposcopy with cervical biopsy 09/10/09 benign 02/23/11 SANDEEP II + HPV History of ovarian cystectomy 07/21/16 lscope lt ovarian cystectomy--no cystectomy lt ovarian cyst drained, no path History of placement of ear tubes 2002 Hx of cholecystectomy 07/01/14 Family History Family History Father Diabetes mellitus Heart disease COPD (chronic obstructive pulmonary disease) Lung cancer Social History Social History Smoking status: Never smoker Second hand tobacco smoke exposure: No Alcohol intake: never Substance use: never Substance use type: does not use Last use: last time Jul 2022 Do You Feel Safe in your Home?: Yes Lack of Transportation: No Lack of Food: Never True Current Housing: I Have Housing Concerned About Future Housing: No Difficulty Paying Gas/Electric Bills: No Difficulty Paying for Meds: No Currently Unemployed: No Education: Grade School Difficulty w/ Childcare or Family Care: No Living arrangements: with friend(s) Occupation/Education: unemployed Gender identity (if verbalized by the patient): Female Sexual Orientation (if Verbalized by the Patient): Straight or Heterosexual Spiritual care concerns: No Agree to blood products: Yes Meds Home Medications and Allergies Home Medications Medication Instructions Recorded Confirmed Type clindamycin HCl 300 mg capsule 300 mg PO TID 03/16/24 03/16/24 History naproxen 500 mg tablet 500 mg PO BID 03/16/24 03/16/24 History tramadol 37.5 mg-acetaminophen 325 1 tablet PO Q6H 03/16/24 03/16/24 History mg tablet Allergies Allergy/AdvReac Type Severity Reaction Status Date / Time ibuprofen Allergy Intermediate Other Verified 03/16/24 16:04 iron Allergy Intermediate Other Verified 03/16/24 16:04 morphine Allergy Unknown hives
[2024-03-18 19:44] VITALS: BP 140/70; PULSE 62; RESP 20; TEMP 36.8; O2SAT 100
[2024-03-19] MEDS: oxyCODONE/ACETAMINOPHEN (*CRX) 5-325 MG TABLET 1 TABLET PO ×4 (01:30→20:47)
[2024-03-19 06:00] VITALS: BP 120/71; PULSE 86; RESP 20; TEMP 36.7; O2SAT 100
[2024-03-19 06:05] LABS: Hemoglobin 12.2 g/dL (12.0-15.0); Mean Corpuscular HGB Conc 31.3 g/dl (32-36); Mean Corpuscular Volume 89.4 fl (80-100); Mean Platelet Volume 9.1 fl (7.4-10.4); Platelet Count Result 265 k/mm3 (150-375); Red Blood Count 4.36 M/mm3 (4.2-5.4); Red Cell Distribution Width 12.2 % (11.5-14.5); White Blood Count 6.7 K/mm3 (4.5-10.0)
[2024-03-19 06:09] LABS: Anion Gap 5 mmol/L (4-12); Blood Urea Nitrogen 9 mg/dL (7-17); Calcium 8.6 mg/dL (8.4-10.2); Carbon Dioxide 25 mmol/L (22-30); Chloride 107 mmol/L (98-107); Estimated CRCL calculation 144 ml/min; Estimated Glomerular Filt Rate > 60; Glucose 83 mg/dL (65-110); Sodium 137 mmol/L (137-145)
[2024-03-19] MEDS: VANCOMYCIN 1,500 MG/NS 500 ML 1,500 MG/500 ML BAG 250 MG IVPB ×2 (08:22→20:41)
[2024-03-19] MEDS: polyethylene glycoL 3350 17 GM POWD.PACK PO (08:32)
[2024-03-19 14:00] VITALS: BP 127/75; PULSE 62; RESP 18; TEMP 36.7; O2SAT 99
--- NOTE | 2024-03-19 14:05 | PM.IMPN ---
Progress Note: A&P Assessment and Plan (1) Abscess of hand: Code(s): L02.519 - Cutaneous abscess of unspecified hand Status: Acute Assessment and Plan: Patient had developed a wound on her right hand that started out as a blister that she developed from using the monkey bars on a playground with her children. Wound with purulence drainage. Imaging: CT Hand 2.2 x 1.8 x 1.0 cm subcutaneous abscess palmar to the heads of the second and third metacarpals. I&D in the ED 03/16 Blood cultures no growth to date Wound culture preliminary for Staphylococcus aureus MRSA Nares positive, vancomycin started on 03/17 Analgesics as needed. Wound care consulted. Plastic surgery consulted in do not think patient needs any surgical intervention at this time. (2) Cellulitis of right hand: Code(s): L03.113 - Cellulitis of right upper limb Status: Acute Assessment and Plan: See above. Subjective Date/time seen: 03/19/24 14:05 Interval history: Patient states that the pain is much improved. Her hand is no longer draining. Patient is adamant that she is leaving the hospital today. I discussed with her that is coyle to wait for culture results due to high likelihood of MRSA infection in her hand. If the patient does to slightly and may will still send her with antibiotic therapy and will call her if those antibiotics need change due to culture results. But I will not be discharging her from the hospital. Risks were explained to the patient. Exam Narrative: GENERAL: Comfortable, no acute distress HENMT: moist mucous membranes EYES: EOM intact b/l NECK: no lymphadenopathy RESPIRATORY: clear to auscultation, no increased respiratory effort CARDIO: Regular rate and rhythm GI: soft, nontender, bowel sounds present SKIN/EXTREMITIES: Blister/wound on the right palm approximately 2 cm in length that is opened, non draining NEURO: PROM intact, answers questions appropriately, A&O x4 Objective Data Vital Signs Vital Signs: Vital Signs - 24 hr 03/18/24 19:44 03/18/24 20:00 03/19/24 06:00 Temperature 98.3 F 98.1 F Pulse Rate 62 86 Respiratory Rate 20 20 Blood Pressure 140/70 120/71 Pulse Oximetry 100 100 Oxygen Delivery Room Air 03/19/24 08:00 Temperature Pulse Rate Respiratory Rate Blood Pressure Pulse Oximetry Oxygen Delivery Room Air Intake/Output Intake/Output: Intake & Output 03/16/24 03/17/24 03/18/24 03/19/24 23:59 23:59 23:59 23:59 Intake Total 2019 4110 720 Balance 2019 4110 720 Meds/Results Medications: Active Medications Generic Name Dose Route Start Last Admin Trade Name Freq PRN Reason Stop Dose Admin Acetaminophen 1,000 mg 03/17/24 01:28 Acetaminophen 500 Mg Tablet PO Q6H PRN Mild Pain (1-3) or Fever Al Hydrox/Mg Hydrox/Simethicone 30 ml 03/17/24 01:28 Mag Hydrox/Al Hydrox/Simeth 30 Ml Udc PO Q6H PRN Indigestion Hydromorphone HCl 1 mg 03/17/24 13:40 Hydromorphone Hcl Inj (*Crx) 1 Mg/Ml Syr IV PUSH Q3H PRN Pain Rated 7-10 Vancomycin HCl 1,500 mg in 500 mls @ 250 mls/hr 03/17/24 08:00 03/19/24 08:22 Vancomycin 1,500 Mg/Ns 500 Ml IVPB 250 mls/hr Q12H SHANDA Administration Ondansetron HCl 4 mg 03/17/24 01:28 Ondansetron Inj 4 Mg/2 Ml Vial IV PUSH Q6H PRN Nausea And Vomiting Oxycodone/Acetaminophen 1 tablet 03/17/24 13:41 03/19/24 13:09 Oxycodone/Acetaminophen (*Crx) 5-325 Mg Tablet PO 1 tablet Q4H PRN Administration Pain Rated 4-6 Polyethylene Glycol 17 gm 03/17/24 01:28 03/19/24 08:32 Polyethylene Glycol 3350 17 Gm Powd.Pack PO 17 gm QAM PRN Administration Constipation Radiology Results: ITS Impressions Hand CT 03/17/24 09:15 IMPRESSION: 1. 2.2 x 1.8 x 1.0 cm subcutaneous abscess palmar to the heads of the second and third metacarpals. Labs Labs: Laboratory Results - last 24 hr 06
[2024-03-19 19:35] LABS: Vancomycin Trough 10.7 ug/mL (10.0-20.0)
[2024-03-19 21:22] VITALS: BP 144/84; PULSE 74; RESP 20; TEMP 36.6; O2SAT 100
[2024-03-19 22:49] VITALS: BP 136/84; PULSE 61; RESP 14; O2SAT 99
--- NOTE | 2024-03-19 22:52 | ECG_ITS ---
Test Date: 2024-03-19 23:12:17 Measurements Intervals [place] Rate: 61 P: 10 ID: 151 QRS: 30 QRSD: 90 T: 34 QT: 414 QTc: 417 Interpretive Statements SINUS RHYTHM WITH SINUS ARRHYTHMIA LOW QRS VOLTAGE IN PRECORDIAL LEADS [QRS DEFLECTION < 1.0 mV IN CHEST LEADS] No previous ECG available for comparison Electronically Signed On 03-20-2024 14:44:51 CDT by Peter Lazo M.D.
[2024-03-19] MEDS: MAG HYDROX/AL HYDROX/SIMETH 30 ML UDC PO (22:58)
[2024-03-20] MEDS: oxyCODONE/ACETAMINOPHEN (*CRX) 5-325 MG TABLET 1 TABLET PO ×2 (05:00→10:16)
[2024-03-20 05:34] VITALS: BP 111/67; PULSE 70; RESP 18; TEMP 36.8; O2SAT 99
[2024-03-20 05:41] LABS: Hematocrit 38.3 % (37.0-47.0); Hemoglobin 12.8 g/dL (12.0-15.0); Mean Corpuscular HGB Conc 33.4 g/dl (32-36); Mean Corpuscular Hemoglobin 28.8 pg (26-34); Mean Corpuscular Volume 86.3 fl (80-100); Mean Platelet Volume 8.8 fl (7.4-10.4); Platelet Count Result 275 k/mm3 (150-375); Red Blood Count 4.44 M/mm3 (4.2-5.4); Red Cell Distribution Width 12.1 % (11.5-14.5); White Blood Count 7.8 K/mm3 (4.5-10.0)
[2024-03-20 06:01] LABS: Anion Gap 4 mmol/L (4-12); Blood Urea Nitrogen 14 mg/dL (7-17); Calcium 8.6 mg/dL (8.4-10.2); Carbon Dioxide 28 mmol/L (22-30); Chloride 105 mmol/L (98-107); Estimated CRCL calculation 128 ml/min; Estimated Glomerular Filt Rate > 60; Glucose 92 mg/dL (65-110); Potassium 4.4 mmol/L (3.4-5.0); Sodium 137 mmol/L (137-145)
[2024-03-20] MEDS: ONDANSETRON INJ 4 MG/2 ML VIAL IV PUSH (06:29)
[2024-03-20] MEDS: VANCOMYCIN 1,500 MG/NS 500 ML 1,500 MG/500 ML BAG 250 MG IVPB (08:12)
[2024-03-20] MEDS: polyethylene glycoL 3350 17 GM POWD.PACK PO (08:12)
--- NOTE | 2024-03-20 12:30 | PM.DS ---
DS: Admitting Diagnosis Discharge Date 03/20/24 Admitting Diagnosis right had abscess DS: Discharge Diagnosis Discharge Diagnosis (1) Abscess of hand: Code(s): L02.519 - Cutaneous abscess of unspecified hand Status: Acute (2) Cellulitis of right hand: Code(s): L03.113 - Cellulitis of right upper limb Status: Acute DS: Summary Hospital Course Hospital Course: This is a 28-year-old female history her medical history that presents to the ED on 03/16/2024 due to right hand swelling and tenderness. She developed a blister playing on the monkey bars apart. Was seen in outside facility versus with oral antibiotics although pain and swelling did not improve with this. She denied any fevers, chills, having. CT of the hand showed 2.2 x 1.8 x 1.0 cm subcutaneous abscess palmar to the heads of the second and third metacarpals. patient had I&D done in the ED on 03/16/2024. Flu cultures taken. Patient had positive MRSA swab on 03/17 and gentamicin was started. Blood culture has remained negative x5 days. Her cultures came back positive for MRSA sensitive to Bactrim. Will received total antibiotic therapy for 2 days pleural her labs and vital signs are stable she is medically cleared for discharge at this time. Time Spent with Patient Time attestation: Total time spent providing and/or coordinating discharge services: Exam Narrative: GENERAL: Comfortable, no acute distress HENMT: moist mucous membranes EYES: EOM intact b/l NECK: no lymphadenopathy RESPIRATORY: clear to auscultation, no increased respiratory effort CARDIO: Regular rate and rhythm GI: soft, nontender, bowel sounds present SKIN/EXTREMITIES: Blister/wound on the right palm approximately 2 cm in length that is opened, non draining NEURO: PROM intact, answers questions appropriately, A&O x4 DS: Data Data Completed and Pending Labs on day of discharge: Labs from last 24 hours 03/20/24 03/19/24 05:19 18:58 WBC 7.8 RBC 4.44 Hgb 12.8 Hct 38.3 MCV 86.3 MCH 28.8 MCHC 33.4 RDW 12.1 Plt Count 275 MPV 8.8 Sodium 137 Potassium 4.4 Chloride 105 Carbon Dioxide 28 Anion Gap 4 BUN 14 D Creatinine 0.80 Estim Creat Clear Calc 128 Estimated GFR > 60 Glucose 92 Calcium 8.6 Vancomycin Trough 10.7 Preliminary micro results at discharge 03/17/24 14:38 Blood Culture - Preliminary Blood 03/17/24 14:38 Blood Culture - Preliminary Blood Discharge Plan Discharge Consulting providers: Richard Conroy Discharging Clinician: Dee Nova Patient Disposition: Home, Self-Care Activity: no preference Diet: regular Discharge Instructions: Return to the emergency department if: -your wound gets larger and more painful. -you feel cracking under skin when you touch it. -you purple dots or bones under skin or you see bleeding under your skin. -you see red streaks coming from the infected area. Call your doctor if: -the red/warm, swollen area gets larger. -your fever or pain does not go away or gets worse. -the areas does not get smaller after 3 days of antibiotics. -you have questions or concerns about your conditioner care. Medications: Bactrim mg twice a day. Next dose this evening. Can take acetaminophen or ibuprofen for pain and fever. Care: -wash the area with soap and water every day. -apply cream or ointment as directed. -placed a cold, damp cloth on the area. -elevate the area above the level of your heart. Discharge disposition: Take medications as prescribed Monitor blood pressures Avoid social areas, you wear a mask when in social settings Encouraged to continue with yearly vaccinations Return to the emergency department if he developed sudden shortness of breath, chest pain, nausea, vomiting, upset stomach or intractable diarrhea Return to the emergency department if you develop fever greater than 100.4 Follow-up
== END 2024-03-20 16:05 | disposition home or self-care (01) ==
LOC: ANHED 20:04 → ANH2MED 20:31
PROVIDERS: Internal Medicine Critical Care Medicine; Admitting Provider Internal Medicine; Emergency Provider Emergency Medicine; Visit Provider Nurse Practitioner Family
DX: L02.511 Cutaneous abscess of right hand (principal); K21.9 Gastro-esophageal reflux disease without esophagitis
CPT/HCPCS: 10060; 36415; 73201; 80048; 80053; 80202; 82565; 83605; 85025; 85027; 87040; 87070; 87147; 87181; 87205; 87641; 93005; 96365; 96366; 96374; 96375; 96376; 99285; A9270; G0378; J1200; J2405; J3010; J3370; J7030; Q9967

== ENCOUNTER 2024-12-08 12:20 | Emergency (ER) | payer OTHER, SELFPAY ==
--- OUTSIDE RECORDS SUMMARY | 2024-12-08 12:22 | XMS_ITS | Data Portability ---
Author Organization [facility] Address [address] [place] [place] [address] Care Team Providers Care [employer] Name Role Phone MARIBEL ORTEGA Primary Care Provider Assessment No assessment recorded. Plan of Treatment Reminders Order Date Submit Date Provider Last Modified By Organization Details Last Modified Time Details Appointments ANY 15 2024 02:45P M KAITLYN KERR Not available Not available Not available Lab CMP, serum or plasma 2023 024 JENNY [facility], [address], [place], [address], 01/19/2024 08:27:19 lipid panel, serum 2023 024 JENNY [facility], [address], [place], [address], 01/19/2024 08:27:18 CBC w/ auto diff 2023 024 JENNY [facility], [address], [place], [address], 01/19/2024 08:27:20 TSH + free T4, serum 2023 024 JENNY [facility], [address], [place], [address], 01/19/2024 08:27:18 HbA1c (hemoglo bin A1c), blood 2023 024 JENNY [facility], [address], [place], [address], 01/19/2024 08:27:20 pregnanc y test, urine 2020 021 therese In-Office Order, Internal Use Only DO Not Attach Compendium DO Not Attach Compendium, Do Not Delete/merge, [id number] 10/12/2020 13:36:11 urinalys is, dipstick 2020 021 therese In-Office Order, Internal Use Only DO Not Attach Compendium DO Not Attach Compendium, Do Not Delete/merge, [id number] 10/12/2020 13:36:11 bacteria l vaginosi s panel, vaginal 2020 021 JENNY [facility] (Centralized Electronic Ordering - All Locations), Patient Can Go To The Location Of Their Choice, [facility] 10/18/2020 14:07:46 culture, vaginal/ rectal, streptoc occus group B 2020 021 JENNY [facility] (Centralized Electronic Ordering - All Locations), Patient Can Go To The Location Of Their Choice, [facility] 10/18/2020 14:07:47 pregnanc y test, urine 2019 020 [email or web address] In-Office Order, Internal Use Only DO Not Attach Compendium DO Not Attach Compendium, Do Not Delete/merge, [id number] 09/07/2020 16:03:23 urinalys is, dipstick 2019 020 therese In-Office Order, Internal Use Only DO Not Attach Compendium DO Not Attach Compendium, Do Not Delete/merge, [id number] 09/07/2020 16:03:23 Referral otolaryn gologist referral - DO NOT REFER TO [facility] 2023 024 [email or web address] Tyrel Reynolds MD, [address], [address], [place], [address], 03/13/2024 08:03:54 otolaryn gologist referral 2023 024 taina Gallegos MD, [address], [place], [address], 04/08/2024 15:47:19 baristacy c surgery referral 2019 020 [facility], [address] [place], [address], 09/09/2020 12:50:25 Procedures None recorded . Surgeries None recorded . Imaging XR, lumbosac ral spine, 2 or 3 view 2023 024 [facility] (Radiology), [address] [place], [address], 01/30/2024 17:00:20 XR, thoracic spine, 3 view [address] (Radiology), [address] [place], [address], 02/20/2024 10:29:12 Medication Orders acyclovi r 400 mg tablet 2023 024 [facility]/Pharmacy #[id number], [address], [place], [address], 01/18/2024 11:52:40 tramadol 50 mg tablet 2023 024 [facility]/Pharmacy #[id number], [address], [place], [address], 01/18/2024 15:20:38 Zithroma x Z-Sanket 250 mg tablet 2020 021 [facility]/Pharmacy #[id number], [address], [place], [address], 11/21/2023 10:08:47 Lo Loestrin Fe 1 mg-10 mcg (24)/10 mcg (2) tablet 2020 021 [facility]/Pharmacy #[id number], [address], [place], [address], 11/21/2023 10:09:00 naltrexo ne 50 mg tablet 2019 020 tellisonrn [facility] #[id number], [address], [place], [address], 09/14/2020 12:54:55 bupropio n HCl 150 mg tablet,1 2 hr sustaine d-releas e(smokin g deterren t) 2019 020 [email or web address] [facility] #[id number], [address], [place], [address], 10/08/2020 12:00:39 nystatin 100,000 unit/gra m topical cream 2019 020 kbarbero [facility]/Pharmacy #[id number], [address], [place], [address], 11/21/2023 10:09:44 multivit yoo tablet 2019 020 kbarbero [facility]/Pharmacy #[id number], [address], [place], [address], 11/21/2023 10:09:54 Calcium with Vitamin D 600 mg-10 mcg (400 unit) tablet 2019 020 kbarbero [facility]/Pharmacy #[id number], [address], [place], [address], 11/21/2023 10:10:50 Patient TargetsNo targets recorded. Patient Instructions Encounter Date Encounter Id Patient Instructions Last Modified By Organization Details Last Modified Time 09/07/2020 [id number] When You Want to Lose Weight: Care Instructions mwasserman Not available 09/07/2020 16:03:23 eating healthy foods: care instructions mwasserman Not available 09/07/2020 16:03:23 learning about dietary guidelines mwasserman Not available 09/07/2020 16:03:23 learning about healthy weight mwasserman Not available 09/07/2020 16:03:24 intrauterine device (IUD) insertion: care instructions mwasserman Not available 09/07/2020 16:03:24 candidiasis: care instructions mwasserman Not available 09/07/2020 16:09:20 10/08/2020 [id number] When You Want to Lose Weight: Care Instructions mwasserman Not available 10/08/2020 12:44:20 10/12/2020 [id number] IUD removal: care instructions mwasserman Not available 10/12/2020 13:36:11 01/18/2024 [id number] A healthy lifestyle: care instructions [email or web address] Not available 01/18/2024 11:43:38 Reason for Referral Bariatric Surgery Referral f or Obesity Referring Physician: Johny Echavarria, TECHNICAL DIRECTOR, Encounter Date: 09/07/2020 Accounting Coordinator Referral fo r Excessive salivation Referring Physician: Maribel Ortega [facility], Encounter Date: 01/18/2024 Accounting Coordinator Referral fo r Excessive salivation DO NOT REFER TO [facility] Referring Physician: Maribel Ortega [facility], Encounter Date: 02/27/2024 Results Created Date Observation Date Name Description Value Unit Range Abnormal Flag Note LastModifiedBy Organization Detail LastModifiedTime 10/12/1910/12/2020 urina lysis , dipst ick Leukocytes Small Not Available In-Offi ce Order Internal Use Only DO Not Attach Compendium DO Not Attach Compendium, Do Not Delete/merge, [id number] 10/12/2020 13:27:14 10/12/19 21 10/12/2020 urina lysis , dipst ick Nitrite negati ve Not Available In-Office Order Internal Use Only DO Not Attach Compendium DO Not Attach Compendium, Do Not Delete/merge, [id number] 10/12/2020 13:27:14 10/12/19 21 10/12/2020 urina lysis , dipst ick Urobilinogen .2 Not Available In-Of fice Order Internal Use Only DO Not Attach Compendium DO Not Attach Compendium, Do Not Delete/merge, [id number] 10/12/2020 13:27:14 10/12/19 21 10/12/2020 urina lysis , dipst ick Protein Negati ve Not Available In-Office Order Internal Use Only DO Not Attach Compendium DO Not Attach Compendium, Do Not Delete/merge, 10/12/2020 13:27:14 10/12/19 21 10/12/2020 urina lysis , dipst ick pH 5.5 Not Available In-Office Order Internal Use Only DO Not Attach Compendium DO Not Attach Compendium, Do Not Delete/merge, 10/12/2020 13:27:14 10/12/19 21 10/12/2020 urina lysis , dipst ick Blood Non-He molyze d: Trace Not Available In-Office Order Internal Use Only DO Not Attach Compendium DO Not Attach Compendium, Do Not Delete/merge, 10/12/2020 13:27:14 10/12/19 21 10/12/2020 urina lysis , dipst ick Specific [place] 1.030 Not Available In-Off ice Order Internal Use Only DO Not Attach Compendium DO Not Attach Compendium, Do Not Delete/merge, 10/12/2020 13:27:14 10/12/19 21 10/12/2020 urina lysis , dipst ick Ketone Negati ve Not Available In-Office Order Internal Use Only DO Not Attach Compendium DO Not Attach Compendium, Do Not Delete/merge, 10/12/2020 13:27:14 10/12/19 21 10/12/2020 urina lysis , dipst ick Bilirubin Negati ve Not Available In-Office Order Internal Use Only DO Not Attach Compendium DO Not Attach Compendium, Do Not Delete/merge, 10/12/2020 13:27:14 10/12/19 21 10/12/2020 urina lysis , dipst ick Glucose Negati ve Not Available In-Office Order Internal Use Only DO Not Attach Compendium DO Not Attach Compendium, Do Not Delete/merge, 10/12/2020 13:27:14 10/12/19 21 10/12/2020 pregn iza test, urine HCG negati ve Not Available In-Office Order Internal Use Only DO Not Attach Compendium DO Not Attach Compendium, Do Not Delete/merge, 10/12/2020 13:27:00 09/07/20 20 09/07/2020 urina lysis , dipst ick Leukocytes Negati ve Not Available In-Office Order Internal Use Only DO Not Attach Compendium DO Not Attach Compendium, Do Not Delete/merge, [id number] 09/07/2020 15:35:17 09/07/20 20 09/07/2020 urina lysis , dipst ick Nitrite negati ve Not Available In-Office Order Internal Use Only DO Not Attach Compendium DO Not Attach Compendium, Do Not Delete/merge, [id number] 09/07/2020 15:35:17 09/07/20 20 09/07/2020 urina lysis , dipst ick Urobilinogen .2 Not Available In-Of fice Order Internal Use Only DO Not Attach Compendium DO Not Attach Compendium, Do Not Delete/merge, [id number] 09/07/2020 15:35:17 09/07/20 20 09/07/2020 urina lysis , dipst ick Protein Negati ve Not Available In-Office Order Internal Use Only DO Not Attach Compendium DO Not Attach Compendium, Do Not Delete/merge, [id number] 09/07/2020 15:35:17 09/07/20 20 09/07/2020 urina lysis , dipst ick pH 5.5 Not Available In-Office Order Internal Use Only DO Not Attach Compendium DO Not Attach Compendium, Do Not Delete/merge, [id number] 09/07/2020 15:35:17 09/07/20 20 09/07/2020 urina lysis , dipst ick Blood Non-He molyze d: Trace Not Available In-Office Order Internal Use Only DO Not Attach Compendium DO Not Attach Compendium, Do Not Delete/merge, [id number] 09/07/2020 15:35:17 09/07/20 20 09/07/2020 urina lysis , dipst ick Specific [place] 1.030 Not Available In-Off ice Order Internal Use Only DO Not Attach Compendium DO Not Attach Compendium, Do Not Delete/merge, [id number] 09/07/2020 15:35:17 09/07/20 20 09/07/2020 urina lysis , dipst ick Ketone Negati ve Not Available In-Office Order Internal Use Only DO Not Attach Compendium DO Not Attach Compendium, Do Not Delete/merge, [id number] 09/07/2020 15:35:17 09/07/20 20 09/07/2020 urina lysis , dipst ick Bilirubin Negati ve Not Available In-Office Order Internal Use Only DO Not Attach Compendium DO Not Attach Compendium, Do Not Delete/merge, [id number] 09/07/2020 15:35:17 09/07/20 20 09/07/2020 urina lysis , dipst ick Glucose Negati ve Not Available In-Office Order Internal Use Only DO Not Attach Compendium DO Not Attach Compendium, Do Not Delete/merge, [id number] 09/07/2020 15:35:17 09/07/20 20 09/07/2020 pregn iza test, urine HCG negati ve Not Available In-Office Order Internal Use Only DO Not Attach Compendium DO Not Attach Compendium, Do Not Delete/merge, [id number] 09/07/2020 15:35:15 10/12/19 21 10/17/2020 bacte rial vagin osis panel , vagin al trich vag by JOLIE Negati ve negati ve Not Available [facility] ([facility]) [address] [place], [address], 10/18/2020 14:07:46 10/12/19 21 10/17/2020 bacte rial vagin osis panel , vagin al chlamydia trachomatis, JOLIE Negati ve negati ve Not Available [facility] ([facility]) [address] [place], [address], 10/18/2020 14:07:46 10/12/19 21 10/17/2020 bacte rial vagin osis panel , vagin al neisseria gonorrhoeae, JOLIE Negati ve negati ve Not Available [facility] ([facility]) [address] [place], [address], 10/18/2020 14:07:46 10/12/19 21 10/17/2020 bacte rial vagin osis panel , vagin al hsv 1 JOLIE Negati ve negati ve Not Available [facility] ([facility]) [address], [place], [address], 10/18/2020 14:07:46 10/12/19 21 10/17/2020 bacte rial vagin osis panel , vagin al hsv 2 JOLIE Negati ve negati ve Not Available [facility] ([facility]) [address] [place], [address], 10/18/2020 14:07:46 10/12/19 21 10/18/2020 bacte rial vagin osis panel , vagin al atopobium vaginae High - 2 score abnormal Not Available [facility] ([facility]) [address] [place], [address], 10/18/2020 14:07:46 10/12/19 21 10/18/2020 bacte rial vagin osis panel , vagin al bvab 2 Low - 0 score Not Available [facility] ([facility]) [address] [place], [address], 10/18/2020 14:07:46 10/12/1910/18/2020 bacte rial vagin osis panel , vagin al megasphaera 1 High - 2 score abnormal Calcu late total score by kaylene sosa the 3 indiv idual bacte rial vagin osis (BV) marke r score s toget her. Total score is inter prete d as follo ws: Total score 0-1: Indic ates the absen ce of BV. Total score 2: Indet ermin ate for BV. Addit ional clini suzy data shoul d be evalu ated to estab osbaldo a diagn osis. Total score 3-6: Indic ates the prese nce of BV. This test was devel oped and its perfo rmanc e vandana cteri stics deter mined by [facility]. It has not been clear ed or appro rayshawn by the Food and Drug Admin istra tion. The FDA has deter mined that such clear ance or appro nadine is not necrafa alatorre. Not Available [facility] ([facility]) [address], [place], [address], 10/18/2020 14:07:46 10/12/19 21 10/18/2020 bacte rial vagin osis panel , vagin al stalin albicans, JOLIE Negati ve negati ve Not Available [facility] ([facility]) [address], [place], [address], 10/18/2020 14:07:46 10/12/19 21 10/18/2020 bacte rial vagin osis panel , vagin al stalin glabrata, JOLIE Negati ve negati ve Not Available [facility] ([facility]) [address], [place], [address], 10/18/2020 14:07:46 10/12/19 21 10/14/2020 cultu re, vagin al/re ctal, strep tococ cus group B strep gp B JOLIE Negati ve negati ve Cente rs for Disea se Contr ol and Preve ntion (CDC) and Ameri can Congr ess of Obste trici ans and Gynec ologi sts (ACOG ) guide lines for preve ntion of perin atal group B strep tococ suzy (GBS) disea se speci fy co-co llect ion of a vagin al and recta l swab speci men to maxim ize sensi tivit y of GBS detec tion. Per the CDC and ACOG, swabb ing both the lower vagin a and rectu m subst antia lly incre ases the yield of detec tion sylvie red with sampl ing the vagin a alone . Penic illin G, ampic illin , or cefaz donna are indic ated for intra partu m proph ylaxi s of perin atal GBS colon izati on. Refle x susce ptibi lity testi ng shoul d be perfo rmed prior to use of clind amyci n only on GBS isola celestino from penic illin -sunny rgic women who are consi dered a high risk for anaph ylaxi s. Treat ment with vanco mycin witho ut addit ional testi ng is warra nted if resis tance to clind pro n is noted . Not Available [facility] ([facility]) [address], [place], [address], 10/18/2020 14:07:47 02/27/20 21 02/27/2021 HCG, intac t + beta subun it, quant , serum or plasm a HCG,beta subunit,qnt, serum <1 mIU/m L Femal e (Non- pregn ant) 0 - 5 (Post menop ausal ) 0 - 8 Femal e (Preg nant) Weeks of Gesta tion 3 6 - 71 4 10 - 750 5 217 - 6938 6 158 - 59295 7 9567 -8158 63 8 90210 -0417 71 9 78505 -8751 10 10 44510 -2854 77 12 67240 -1964 12 14 16047 - 57216 15 20092 - 31114 16 3480 - 44434 17 3984 - 58182 18 5079 - 29533 Dyana ECLIA metho dolog y Not Available [facility] ([facility]) [address], [place], [address], 02/27/2021 08:16:28 02/27/20 21 02/27/2021 proge stero ne, serum progesterone 3.9 NG/mL Folli cular phase 0.1 - 0.9 Lutea l phase 1.8 - 23.9 Ovula tion phase 0.1 - 12.0 Pregn ant First trime ster 11.0 - 44.3 Secon d trime ster 25.4 - 83.3 Third trime ster 58.7 - 214.0 Postm enopa usal 0.0 - 0.1 Not Available [facility] ([facility]) [address], [place], [address], 02/27/2021 08:16:29 01/18/20 24 01/19/2024 TSH+F REE T4 TSH 1.690 uIU/m L 0.450- 4.500 Not Available [facility] ([facility]) [address], [place], [address], 01/19/2024 08:27:18 01/18/20 24 01/19/2024 TSH+F REE T4 T4,free(dire ct) 1.68 NG/dL 0.82-1 .77 Not Available [facility] ([facility]) [address] [place], [address], 01/19/2024 08:27:18 01/18/20 24 01/19/2024 LIPID PANEL WITH LDL/H DL RATIO cholesterol, total 143 mg/dL 100-19 9 Not Available [facility] ([facility]) [address], [place], [address], 01/19/2024 08:27:18 01/18/20 24 01/19/2024 LIPID PANEL WITH LDL/H DL RATIO triglyceride s 38 mg/dL 0-149 Not Available [facility] ([facility]) [address] [place], [address], 01/19/2024 08:27:18 01/18/20 24 01/19/2024 LIPID PANEL WITH LDL/H DL RATIO HDL cholesterol 59 mg/dL >39 Not Available [facility]) [address] [place], [address], 01/19/2024 08:27:18 01/18/20 24 01/19/2024 LIPID PANEL WITH LDL/H DL RATIO VLDL cholesterol suzy 9 mg/dL 5-40 Not Available [facility] ([facility]) [address] [place], [address], 01/19/2024 08:27:18 01/18/20 24 01/19/2024 LIPID PANEL WITH LDL/H DL RATIO LDL chol calc (nih) 75 mg/dL 0-99 Not Available [facility] ([facility]) [address] [place], [address], 01/19/2024 08:27:18 01/18/20 24 01/19/2024 LIPID PANEL WITH LDL/H DL RATIO LDL/HDL ratio 1.3 ratio 0.0-3. 2 LDL/H DL Ratio Men Women 1/2 Avg.R isk 1.0 1.5 Avg.R isk 3.6 3.2 2X Avg.R isk 6.2 5.0 3X Avg.R isk 8.0 6.1 Not Available [facility] ([facility]) [address] [place], [address], 01/19/2024 08:27:18 01/18/20 24 01/19/2024 COMP. METAB OLIC PANEL (14) glucose 106 mg/dL 70-99 above high normal Not Available [facility] ([facility]) [address] [place], [address], 01/19/2024 08:27:19 01/18/20 24 01/19/2024 COMP. METAB OLIC PANEL (14) BUN 12 mg/dL 6-20 Not Available [facility] ([facility]) [address] [place], [address], 01/19/2024 08:27:19 01/18/20 24 01/19/2024 COMP. METAB OLIC PANEL (14) creatinine 0.82 mg/dL 0.57-1 .00 Not Available [facility] ([facility]) [address] [place], [address], 01/19/2024 08:27:19 01/18/20 24 01/19/2024 COMP. METAB OLIC PANEL (14) eGFR 99 mL/mi n/1.7 3 >59 Not Available [facility] ([facility]) [address] [place], [address], 01/19/2024 08:27:19 01/18/20 24 01/19/2024 COMP. METAB OLIC PANEL (14) BUN/creatini ne ratio 15 9-23 Not Available [facility] ([facility]) [address], [place], [address], 01/19/2024 08:27:19 01/18/20 24 01/19/2024 COMP. METAB OLIC PANEL (14) sodium 139 mmol/ L 134-14 4 Not Available [facility] ([facility]) [address], [place], [address], 01/19/2024 08:27:19 01/18/20 24 01/19/2024 COMP. METAB OLIC PANEL (14) potassium 4.8 mmol/ L 3.5-5. 2 Not Available [facility] ([facility]) [address], [place], [address], 01/19/2024 08:27:19 01/18/20 24 01/19/2024 COMP. METAB OLIC PANEL (14) chloride 104 mmol/ L 96-106 Not Available [facility] ([facility]) [address], [place], [address], 01/19/2024 08:27:19 01/18/20 24 01/19/2024 COMP. METAB OLIC PANEL (14) carbon dioxide, total 23 mmol/ L 20-29 Not Available [facility] ([facility]) [address], [place], [address], 01/19/2024 08:27:19 01/18/20 24 01/19/2024 COMP. METAB OLIC PANEL (14) calcium 9.0 mg/dL 8.7-10 .2 Not Available [facility] ([facility]) [address] [place], [address], 01/19/2024 08:27:19 01/18/20 24 01/19/2024 COMP. METAB OLIC PANEL (14) protein, total 6.5 g/dL 6.0-8. 5 Not Available [facility] ([facility]) [address] [place], [address], 01/19/2024 08:27:19 01/18/20 24 01/19/2024 COMP. METAB OLIC PANEL (14) albumin 4.2 g/dL 4.0-5. 0 Not Available [facility] ([facility]) [address], [place], [address], 01/19/2024 08:27:19 01/18/20 24 01/19/2024 COMP. METAB OLIC PANEL (14) globulin, total 2.3 g/dL 1.5-4. 5 Not Available [facility] ([facility]) [address], [place], [address], 01/19/2024 08:27:19 01/18/20 24 01/19/2024 COMP. METAB OLIC PANEL (14) A/G ratio 1.8 1.2-2. 2 Not Available [facility] ([facility]) [address], [place], [address], 01/19/2024 08:27:19 01/18/20 24 01/19/2024 COMP. METAB OLIC PANEL (14) bilirubin, total 0.4 mg/dL 0.0-1. 2 Not Available [facility] ([facility]) [address], [place], [address], 01/19/2024 08:27:19 01/18/20 24 01/19/2024 COMP. METAB OLIC PANEL (14) alkaline phosphatase 76 IU/L 44-121 Not Available [facility]) [address], [place], [address], 01/19/2024 08:27:19 01/18/20 24 01/19/2024 COMP. METAB OLIC PANEL (14) AST (SGOT) 12 IU/L 0-40 Not Available [facility] ([facility]) [address], [place], [address], 01/19/2024 08:27:19 04/18/20 24 01/19/2024 COMP. METAB OLIC PANEL (14) ALT (SGPT) 9 IU/L 0-32 Not Available [facility] ([facility]) [address], [place], [address], 01/19/2024 08:27:19 01/18/20 24 01/19/2024 HEMOG LOBIN A1C hemoglobin A1C 5.3 % 4.8-5. 6 Predi abete s: 5.7 - 6.4 Diabe celestino: >6.4 Glyce rebeka contr ol for adult s with diabe celestino: <7.0 Not Available [facility] ([facility]) [address], [place], [address], 01/19/2024 08:27:20 01/18/20 24 01/19/2024 CBC WITH DIFFE RENTI AL/PL ATELE T WBC 9.9 x10e3 /uL 3.4-10 .8 Not Available [facility] ([facility]) [address], [place], [address], 01/19/2024 08:27:20 01/18/20 24 01/19/2024 CBC WITH DIFFE RENTI AL/PL ATELE T RBC 4.97 x10e6 /uL 3.77-5 .28 Not Available [facility] ([facility]) [address] [place], [address], 01/19/2024 08:27:20 01/18/20 24 01/19/2024 CBC WITH DIFFE RENTI AL/PL ATELE T hemoglobin 14.0 g/dL 11.1-1 5.9 Not Available [facility] ([facility]) [address] [place], [address], 01/19/2024 08:27:20 01/18/20 24 01/19/2024 CBC WITH DIFFE RENTI AL/PL ATELE T hematocrit 42.7 % 34.0-4 6.6 Not Available [facility] ([facility]) [address], [place], [address], 01/19/2024 08:27:20 01/18/20 24 01/19/2024 CBC WITH DIFFE RENTI AL/PL ATELE T MCV 86 fL 79-97 Not Available [facility] ([facility]) [address], [place], [address], 01/19/2024 08:27:20 01/18/20 24 01/19/2024 CBC WITH DIFFE RENTI AL/PL ATELE T MCH 28.2 pg 26.6-3 3.0 Not Available [facility] ([facility]) [address], [place], [address], 01/19/2024 08:27:20 01/18/20 24 01/19/2024 CBC WITH DIFFE RENTI AL/PL ATELE T MCHC 32.8 g/dL 31.5-3 5.7 Not Available [facility] ([facility]) [address], [place], [address], 01/19/2024 08:27:20 01/18/20 24 01/19/2024 CBC WITH DIFFE RENTI AL/PL ATELE T RDW 12.5 % 11.7-1 5.4 Not Available [facility] ([facility]) [address], [place], [address], 01/19/2024 08:27:20 01/18/20 24 01/19/2024 CBC WITH DIFFE RENTI AL/PL ATELE T platelets 290 x10e3 /uL 150-45 0 Not Available [facility] ([facility]) [address] [place], [address], 01/19/2024 08:27:20 01/18/20 24 01/19/2024 CBC WITH DIFFE RENTI AL/PL ATELE T neutrophils 71 % notest ab. Not Available [facility] ([facility]) [address], [place], [address], 01/19/2024 08:27:20 01/18/20 24 01/19/2024 CBC WITH DIFFE RENTI AL/PL ATELE T lymphs 22 % notest ab. Not Available [facility] ([facility]) [address], [place], [address], 01/19/2024 08:27:20 01/18/20 24 01/19/2024 CBC WITH DIFFE RENTI AL/PL ATELE T monocytes 5 % notest ab. Not Available [facility] ([facility]) [address], [place], [address], 01/19/2024 08:27:20 01/18/20 24 01/19/2024 CBC WITH DIFFE RENTI AL/PL ATELE T eos 1 % notest ab. Not Available [facility] ([facility]) [address], [place], [address], 01/19/2024 08:27:20 01/18/20 24 01/19/2024 CBC WITH DIFFE RENTI AL/PL ATELE T basos 1 % notest ab. Not Available [facility] ([facility]) [address], [place], [address], 01/19/2024 08:27:20 01/18/20 24 01/19/2024 CBC WITH DIFFE RENTI AL/PL ATELE T neutrophils (absolute) 7.0 x10e3 /uL 1.4-7. 0 Not Available [facility] ([facility]) [address], [place], [address], 01/19/2024 08:27:20 01/18/20 24 01/19/2024 CBC WITH DIFFE RENTI AL/PL ATELE T lymphs (absolute) 2.2 x10e3 /uL 0.7-3. 1 Not Available [facility] ([facility]) [address] [place], [address], 01/19/2024 08:27:20 01/18/20 24 01/19/2024 CBC WITH DIFFE RENTI AL/PL ATELE T monocytes(ab solute) 0.5 x10e3 /uL 0.1-0. 9 Not Available [facility] ([facility]) [address], [place], [address], 01/19/2024 08:27:20 01/18/20 24 01/19/2024 CBC WITH DIFFE RENTI AL/PL ATELE T eos (absolute) 0.1 x10e3 /uL 0.0-0. 4 Not Available [facility] ([facility]) [address] [address], [place], [address], 01/19/2024 08:27:20 01/18/20 24 01/19/2024 CBC WITH DIFFE RENTI AL/PL ATELE T baso (absolute) 0.1 x10e3 /uL 0.0-0. 2 Not Available [facility] ([facility]) [address], [place], [address], 01/19/2024 08:27:20 01/18/20 24 01/19/2024 CBC WITH DIFFE RENTI AL/PL ATELE T immature granulocytes 0 % notest ab. Not Available [facility] ([facility]) [address], [place], [address], 01/19/2024 08:27:20 01/18/20 24 01/19/2024 CBC WITH DIFFE RENTI AL/PL ATELE T immature grans (abs) 0.0 x10e3 /uL 0.0-0. 1 Not Available [facility] ([facility]) [address] [place], [address], 01/19/2024 08:27:20 01/30/20 24 01/30/2024 XR, lumbo sacra l spine , 2 or 3 view No observ ation record ed. [facility] [address] [place], [address], 01/31/2024 10:12:13 07/25/20 24 07/25/2024 MRI, lumba r spine , w/o contr ast No observ ation record ed. [facility] [address], [place], [address], 08/13/2024 15:33:27 Result Notes None recorded. Problems Name Problem SNOMED Code Status Onset Date Resolution Date Notes Provider Name and Address Organization Details Recorded Time Low back pain 453543074 Completed 201706/24/2019 Johny WalkerJerichovincent herrera, [place] - [facility] 9 17:05:10 Constipa tion 06091677 Active 2018 Hermann Brownlee PA-C Attn: Accounting ,[address] [place], [address] , [facility] - [facility] 9 15:04:26 Dyspnea 601851919 Completed 201806/24/2019 Johny WalkerJericho null, [place] - [facility] 9 17:05:12 Low blood pressure 65913539 Completed 201806/24/2019 [place]o [place] [facility] 9 17:05:06 Pregnanc y 71946458 Completed 201806/24/2019 Lovely Menezes [place], [place] [facility] 0 15:43:32 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 82997583 Completed 2018 Jo Ann Patterson MD Attn: Accounting ,[address] [facility], [place], [address] , [place] - [facility] 0 11:42:54 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 81035749 Completed 201811/28/2019 Johny [place] [facility] 0 17:47:01 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 Hermann Brownlee PA-C Attn: Accounting ,[address] [place], [address] , [place] - [facility] 9 15:37:54 Shoulder strain 672692319 Completed 201912/23/2019 Johny Echavarria [place] [facility] 0 17:33:35 Obese 723153979 Completed 201912/23/2019 [place] [facility] 0 17:33:20 Pregnanc y 44652117 Completed 201907/27/2020 Lovely Menezes [place] [facility] 0 15:43:32 Past pregnanc y history of miscarri age 047450509 Completed 2019 Jo Ann Patterson MD Attn: Accounting ,[address] [place], [address] , [place] - [facility] 1 11:47:48 Past pregnanc y history of miscarri age 712028870 Active 2019 Jo Ann Patterson MD Attn: Accounting ,[address] [place], [address] , [place] - [facility] 1 11:47:48 Deliveri es by [id number] Completed 2016 Jo Ann Patterson MD Attn: Accounting ,[address] [place], [address] , [place] - [facility] 1 11:47:48 Genital herpes simplex 59955704 Completed 2016 Jo Ann Patterson MD Attn: Accounting ,[address] [place], [address] , [place] [facility] 1 11:47:48 Obesity 887572418 Completed Jo Ann Patterson MD Attn: Accounting ,[address] [place], [address] , [place] - [facility] 1 11:47:49 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 Jo Ann Patterson MD Attn: Accounting ,[address], [place], [address] [place] [address] , [facility] - [facility] 11:47:48 Group B Streptoc occus carrier [id number] 03 Completed 2016 Jo Ann Patterson MD Attn: Accounting ,[address] [place], [address] , [facility] - [facility] 11:47:49 RhD negative 098124418 Completed 2016 Jo Ann Patterson MD Attn: Accounting ,[address] [place], [address] , [place] [facility] 11:47:49 Streptoc occal sore throat 86349125 Active 2019 Jo Ann Patterson MD Attn: Accounting ,[address] [place], [address] , [place] [facility] 11:47:49 Streptoc occal sore throat 40791855 Completed 2019 Jo Ann Patterson MD Attn: Accounting ,[address] [place], [address] , [place] [facility] 11:47:49 Oligohyd ramnios 23882701 Active 2019 Jo Ann Patterson MD Attn: Accounting ,[address] [facility], [place], [address] , [place] - [facility] 1 11:47:48 Oligohyd ramnios 99091448 Completed 2019 Jo Ann Patterson MD Attn: Accounting ,[address] [place], [address] , [place] [facility] 1 11:47:48 Bacteria l vaginosi s 354578203 Active 2020 Johny WalkerJericho [place] [facility] 1 07:28:37 Chronic back pain 586783776 Active 2023 KAITLYN KERR Attn: Accounting ,[address] [facility], [place], [address] , [place] - [facility] 4 08:41:54 Spinal stenosis of lumbar region 74314512 Active 2023 KAITLYN KERR Attn: Accounting ,[address] [facility], [place], [address] , [place] - [facility] 4 15:35:18 Urinary tract infectio us disease 21222127 Active Hermann Brownlee PA-C Attn: Accounting ,[address] [place], [address] , [place] [facility] 6 15:50:14 Acute urinary tract infectio n 870242781 Completed 02/09/2017 Johny [place] [facility] 7 18:08:47 Vertigo 115759421 Completed 02/09/2017 [place] [facility] 7 15:38:24 Pregnanc y 80686051 Completed 201602/09/2017 Lovely Menezes [place] [facility] 0 15:43:32 Abnormal progeste dima 859516323 Active 2016 Do Cavazos [place] [facility] 7 15:13:51 Genital herpes simplex 06271275 Active 2016 Jo Ann Patterson MD Attn: Accounting ,[address] [place], [address] , [place] [facility] 11:47:49 RhD negative 191996339 Completed 2016 Do Cavaz[place] [facility] 7 15:13:51 RhD negative 096542712 Active 2016 Jo Ann Patterson MD Attn: Accounting ,[address] [facility], [place], [address] , [place] [facility] 11:47:49 Chlamydi a trachoma tis infectio n 211087214 Completed 201606/27/2017 Johny [place] [facility] 7 13:49:50 Rubella non-immu ne 320085652 Active 2016 Do Cavaz[place] [facility] 7 15:13:50 Obesity 774245553 Completed Do Cavaz[place] [facility] 7 15:13:50 Abnormal progeste dima 273525843 Completed 2016 Do Cavaz[place] [facility] 7 15:13:51 Chlamydi al infectio n 909048521 Completed Do Cavazos [place] [facility] 7 15:13:51 Rubella non-immu ne 832526763 Completed 2016 CURTIS St[place] [facility] 7 15:13:50 Genital herpes simplex 77798987 Completed 2016 Do Cavazos [place] [facility] 7 15:13:51 Deliveri es by 786078768 Active 2016 Jo Ann Patterson MD Attn: Accounting ,[address] [place], [address] , [place] [facility] 11:47:48 Gastroes ophageal reflux disease 034600493 Completed 2016 CURTIS [place] [facility] 7 15:13:51 Gastroes ophageal reflux disease 653095549 Active 2016 Do Cavazos [place], [place] - [facility] 7 15:13:51 Chlamydi al infectio n 580612573 Active Do Cavazos [place], [place] - [facility] 7 15:13:51 Obesity 634052062 Active Jo Ann Patterson MD Attn: Accounting ,[address] [place], [address] , [facility] - SI 11:47:49 Group B Streptoc occus carrier [id number] 03 Active 2016 Jo Ann Patterson MD Attn: Accounting ,[address] [place], [address] , [facility] - SI 11:47:49 Candidia sis of vagina 40733600 Active 2016 Johny herrera [facility] 7 17:24:24 Problem Notes None recorded. Procedures Surgical History Date Name Laterality Status Provider Name and Address Organization Details Recorded Time 10/12/19 21 IUD Removal completed [place]icho [place] [facility] 10/12/2020 13:45:21 09/07/20 20 IUD Insertion completed [place]y [place]icho [place] [facility] 09/07/2020 15:56:04 09/03/20 20 IUD Insertion cancelled Johny Jericho [facility] 09/01/2020 21:32:20 01/24/20 19 Date of Last Pap Smear completed CURTIS Bledsoe [facility] 06/24/2019 16:23:06 03/17/20 14 Caesarean Section completed CURTIS Bledsoe [facility] 12/15/2016 11:28:41 10/02/19 08 Dilation and Curettage completed Johny Vega [facility] 11/19/2019 10:58:21 Appendectomy completed CURTIS Tobin [facility] 06/27/2016 15:19:46 Cholecystectomy completed CURTIS Tobin [facility] 06/27/2016 15:19:46 Imaging Results Imaging Date Name Status [facility] Details LastModified Time 01/30/2024 XR, lumbosacral spine, 2 or 3 view completed [facility] [address] [place], [address], 01/31/2024 10:12:13 07/25/2024 MRI, lumbar spine, w/o contrast completed [facility] [address] [place], [address], 08/13/2024 15:33:27 Procedure Notes None recorded. Medical Equipment None Reported. Allergies Allergen ID Allergen Name Allergen Category Reaction Reaction Severity Criticality Documentation Date Start Date Code Code System Note Provider Name and Address Organization Details Recorded Time 136450 ibuprofen medicatio n irregular heart rate severe Not available 12/23/2019 5640 RxNorm Not Available Not Available Not Available 445219 iron medicatio n hives irregular heart rate moderate severe Not available 12/23/2019 47569 RxNorm Not Available Not Available Not Available 256534 vitamin B12 medicatio n rash moderate Not available 02/06/2020 00450 RxNorm Not Available Not Available Not Available 197698 drospiren one medicatio n chest pain severe Not available 09/02/2020 20520 RxNorm 09/02 pt not bashir ating proge stero ne hormo sharon per Bridgett gutiérrez, rn Not Available Not Available Not Available 94949 morphine medicatio n hives severe Not available 06/27/2016 7052 RxNorm Not Available Not Available Not Available 53838 Augmentin medicatio n vomiting severe Not available 06/27/2016 41981 2 RxNorm Not Available Not Available Not Available Medications Name Sig Start Date Stop Date Status Note LastModified by Organization Details LastModified Time amoxicill in 500 mg caps 01/23 completed Not Available Not Available Not Available ondansetr on hcl 4 mg tabs 09/18 completed Not Available Not Available Not Available ondansetr on odt 4 mg tbdp 09/18 completed Not Available Not Available Not Available metronida zole 250 mg tabs active Not Available Not Available Not Available baclofen 10 mg tabs 01/23 completed Not Available Not Available Not Available meloxicam 15 mg tabs 09/18 completed Not Available Not Available Not Available ranitidin e hcl 150 mg tabs 09/18 completed Not Available Not Available Not Available pantopraz ole sodium 40 mg tbec 01/23 completed Not Available Not Available Not Available clindamyc in hcl 300 mg caps 01/23 completed Not Available Not Available Not Available oxycodone /acetamin ophen 5-325 mg tabs 09/18 completed Not Available Not Available Not Available nitrofura ntoin monohydra te/macroc rystals 100 mg caps 09/03 completed Not Available Not Available Not Available metaxalon e 800 mg tabs 08/02 completed Not Available Not Available Not Available ibuprofen 800 mg tabs 06/24 completed Not Available Not Available Not Available hydrocodo ne bitartrat e/acetami nophen 7.5-325 mg/15ml soln 01/23 completed Not Available Not Available Not Available progester one 200 mg caps 09/18 completed Not Available Not Available Not Available tobramyci n sulfate 0.3 % soln 09/18 completed Not Available Not Available Not Available acetamino phen/code ine 120-12 mg/5ml soln 01/23 completed Not Available Not Available Not Available ofloxacin 0.3 % soln 01/23 completed Not Available Not Available Not Available fluconazo le 150 mg tabs 01/23 completed Not Available Not Available Not Available acyclovir 800 mg tabs 03/09 completed Not Available Not Available Not Available azithromy dolores 500 mg tabs 09/18 completed Not Available Not Available Not Available hydrocodo ne/acetam inophen 10-325 mg tabs 11/14 completed Not Available Not Available Not Available ranitidin e hcl 300 mg tabs 01/23 completed Not Available Not Available Not Available se- 19 29-1 mg tabs 09/18 completed Not Available Not Available Not Available sulfameth oxazole/t rimethopr im ds 800-160 mg tabs 02/09 completed Not Available Not Available Not Available ibuprofen 600 mg tabs 09/03 completed Not Available Not Available Not Available azithromy dolores 250 mg tabs 01/23 completed Not Available Not Available Not Available hydrocodo ne/acetam inophen 5-325 mgtabs 01/23 completed Not Available Not Available Not Available tramadol hcl 50 mg tabs 01/23 completed Not Available Not Available Not Available penicilli n v potassium 500 mg tabs 09/18 completed Not Available Not Available Not Available meclizine hcl 12.5 mg tabs 02/09 completed Not Available Not Available Not Available metoclopr amide hcl 10 mg tabs 11/15 completed Not Available Not Available Not Available silver sulfadiaz ine 1 % topical cream APPLY 1 GRAM ONTO THE AFFECTED AREA(S) ON THE SKIN 3 TIMES DAILY active Not Available Not Available No t Available clindamyc in HCl 300 mg capsule TAKE 1 CAPSULE BY MOUTH THREE TIMES A DAY 08/13 completed Not Available Not Available Not Available cetirizin e 10 mg tablet Take 1 tablet every day by oral route. 03/09 completed Not Available Not Available Not Available azithromy dolores 250 mg tablet TAKE 2 TABLETS BY MOUTH TODAY, THEN TAKE 1 TABLET DAILY FOR 4 DAYS 11/21 completed Not Available Not Available Not Available ibuprofen 800 mg tablet Take 1 tablet 3 times a day by oral route. 10/03 completed Not Available Not Available Not Available tramadol 37.5 mg-acetam inophen 325 mg tablet TAKE 1 TABLET BY MOUTH EVERY 6 HOURS FOR UP TO 5 DAYS. active Not Available Not Available No t Available ofloxacin 0.3 % eye drops INSTILL 2 DROPS INTO AFFECTED EYE 4 TIMES A DAY 11/21 completed Not Available Not Available Not Available fluconazo le 150 mg tablet TAKE 1 TABLET BY MOUTH DIRECTED active Not Available Not Available No t Available ranitidin e 300 mg tablet TAKE 1 TABLET BY MOUTH EVERY DAY AT BEDTIME 11/06 completed contamin ants Not Available Not Available Not Available hydrocodo ne 5 mg-acetam inophen 325 mg tablet Take 1 tablet every 6 hours by oral route. 08/25 completed Not Available Not Available Not Available fluconazo le 200 mg tablet TAKE 1 TABLET BY MOUTH NOW. IF STILL SYMPTOMA TIC IN 72 HOURS TAKE 2ND TABLET active Not Available Not Available No t Available naltrexon e 50 mg tablet TAKE 1/2 TABLET BY MOUTH TWICE A DAY. 09/14 completed pt states she does not like the side effects Not Available Not Available Not Available phenazopy ridine 200 mg tablet Take 1 tablet 3 times a day by oral route for 2 days. 02/09 completed Not Available Not Available Not Available metronida zole 0.75 % (37.5 mg/5 gram) vaginal gel INSERT 1 APPLICAT ORFUL VAGINALL Y NIGHTLY AT BEDTIME X5 DAYS 11/21 completed Not Available Not Available Not Available prednison e 20 mg tablet Take 2 tablets twice a day by oral route for 2 days. 11/19 completed Not Available Not Available Not Available medroxypr ogesteron e 5 mg tablet Please specify directio ns, refills and quantity active Not Available Not Available No t Available metronida zole 250 mg tablet Take 1 tablet every 8 hours by oral route for 7 days. 10/03 completed Not Available Not Available Not Available Nicho Low Dose Aspirin 81 mg tablet,de layed release Take 2 tablets every day by oral route. 03/09 completed Not Available Not Available Not Available meclizine 12.5 mg tablet Take 1 tablet 3 times a day by oral route for 30 days. 02/09 completed Not Available Not Available Not Available metronida zole 500 mg tablet TAKE 2 TABLETS BY MOUTH TWICE A DAY 11/21 completed Not Available Not Available Not Available acyclovir 400 mg tablet TAKE 1 TABLET BY MOUTH THREE TIMES A DAY FOR 7 DAYS DIRECTED FOR HERPES OUTBREAK active Not Available Not Available No t Available valacyclo vir 500 mg tablet TAKE 1 TABLET BY MOUTH EVERY DAY 11/21 completed Not Available Not Available Not Available sulfameth oxazole 800 mg-trimet hoprim 160 mg tablet TAKE 1 TABLET BY MOUTH EVERY 12 HOURS X8 DAYS 08/13 completed Not Available Not Available Not Available Reglan 10 mg tablet Take 1 tablet 4 times a day by oral route. 09/18 completed Not Available Not Available Not Available tramadol 50 mg tablet Take 1 tablet twice a day by oral route as needed for 7 days, for chronic back pain. active Not Available Not Available No t Available triamcino lone acetonide 0.1 % topical cream APPLY TO AFFECTED AREA TWICE A DAY 11/21 completed Not Available Not Available Not Available acyclovir 800 mg tablet TAKE 1 TABLET BY MOUTH EVERY DAY 11/21 completed Not Available Not Available Not Available Vitamin tablet Take 1 tablet every day by oral route as directed for 90 days. 11/21 completed Not Available Not Available Not Available Zofran 4 mg tablet Take 1 tablet every 8 hours by oral route as needed. 02/09 completed Not Available Not Available Not Available oxycodone -acetamin ophen 5 mg-325 mg tablet TAKE 1 TABLET BY MOUTH EVERY 6 HOURS NEEDED FOR PAIN 11/21 completed Not Available Not Available Not Available famotidin e 20 mg tablet Take 1 tablet twice a day by oral route. 10/08 completed Not Available Not Available Not Available baclofen 10 mg tablet Take 1 tablet 3 times a day by oral route as needed for 30 days. 01/23 completed Not Available Not Available Not Available cephalexi n 500 mg capsule TAKE 1 CAPSULE BY MOUTH TWICE A DAY active Not Available Not Available No t Available erythromy dolores 5 mg/gram (0.5 %) eye ointment APPLY TO AFFECTED EYE(S) EVERY 8 HOURS FOR 7 DAYS 11/21 completed Not Available Not Available Not Available cyanocoba britta (vit B-12) 1,000 mcg/mL injection solution Inject 1 mL every month by subcutan eous route. 04/08 completed Not Available Not Available Not Available ferrous sulfate 325 mg (65 mg iron) tablet TAKE 1 TABLET BY MOUTH TWICE DAILY 06/24 completed Not Available Not Available Not Available nystatin 100,000 unit/gram topical cream APPLY TO AFFECTED AREA TWICE A DAY 11/21 completed Not Available Not Available Not Available ranitidin e 150 mg tablet Take 1 tablet twice a day by oral route before meals. 09/18 completed Not Available Not Available Not Available polymyxin B sulfate 10,000 unit-trim ethoprim 1 mg/mL eye drops INSTILL 1-2 DROPS IN AFFECTED 4 TIMES A DAY NEEDED FOR 7 DAYS active Not Available Not Available No t Available progester one micronize d 200 mg capsule Take 1 capsule twice a day by oral route. 08/25 completed Not Available Not Available Not Available docusate sodium 100 mg capsule Take 1 capsule twice a day by oral route for 30 days. 06/24 completed Not Available Not Available Not Available omeprazol e 20 mg capsule,d elayed release Take 1 capsule twice a day by oral route for 30 days. 03/09 completed Not Available Not Available Not Available folic acid 1 mg tablet Take 4 tablets every day by oral route. 03/09 completed Not Available Not Available Not Available monteluka st 10 mg tablet Take 1 tablet every day by oral route. 03/09 completed Not Available Not Available Not Available mupirocin 2 % topical ointment APPLY 1 GRAM 4 TIMES A DAY active Not Available Not Available No t Available ergocalci ferol (vitamin D2) 1,250 mcg (50,000 unit) capsule TAKE 1 CAPSULE BY MOUTH ONCE WEEKLY 11/21 completed Not Available Not Available Not Available levofloxa dolores 750 mg tablet TAKE 1 TABLET BY MOUTH EVERY DAY 01/17 completed Not Available Not Available Not Available methylpre dnisolone 4 mg tablets in a dose pack TAKE 6 TABLETS ON DAY 1 DIRECTED ON PACKAGE AND DECREASE BY 1 TAB EACH DAY FOR A TOTAL OF 6 DAYS 08/13 completed Not Available Not Available Not Available fluticaso ne propionat e 50 mcg/actua tion nasal spray,[facility] [employer] 1 spray every day by intranas al route. 03/09 completed Not Available Not Available Not Available naproxen 500 mg tablet TAKE 1 TABLET BY MOUTH TWICE A DAY WITH FOOD active Not Available Not Available No t Available neomycin- polymyxin -hydrocor t 3.5 mg-10,000 unit/mL-1 % ear drops,aurora p INSTILL 2 DROPS INTO THE RIGHT EAR 4 TIMES DAILY 11/21 completed Not Available Not Available Not Available Daily-Vit e tablet TAKE 1 TABLET BY MOUTH EVERY DAY 11/21 completed Not Available Not Available Not Available azithromy dolores 500 mg tablet Take 1 tablet every day by oral route for 7 days. 02/09 completed Not Available Not Available Not Available metaxalon e 800 mg tablet TAKE 1 TABLET BY MOUTH THREE TIMES DAILY NEEDED FOR 30 DAYS 01/23 completed Not Available Not Available Not Available nitrofura ntoin monohydra te/macroc rystals 100 mg capsule Take 1 capsule every 12 hours by oral route as directed for 10 days. 11/21 completed Not Available Not Available Not Available ferrous gluconate 324 mg (38 mg iron) tablet Take 1 tablet twice a day by oral route. 09/18 completed Not Available Not Available Not Available calcium 600 mg (as carbonate )-vitamin D3 10 mcg (400 unit) tablet TAKE 1 TABLET BY MOUTH TWICE A DAY 11/21 completed Not Available Not Available Not Available RhoGAM Ultra-Reji tered PLUS 1,500 unit (300 mcg) intramusc ular syringe Inject 1 syringe by intramus cular route. 09/18 completed Not Available Not Available Not Available diclofena c 1 % topical gel APPLY 2 GRAMS TO THE AFFECTED AREA(S) BY TOPICAL ROUTE 4 TIMES PER DAY 10/03 completed Not Available Not Available Not Available Calcium with Vitamin D3 600 mg (carbonat e)-10 mcg (400 unit) capsule Take 1 capsule twice a day by oral route. 03/09 completed Not Available Not Available Not Available CompleteN ate 29 mg iron-1 mg chewable tablet 10/03 completed Not Available Not Available Not Available Lo Loestrin Fe 1 mg-10 mcg (24)/10 mcg (2) tablet Take 1 tablet every day by oral route. 11/21 completed Not Available Not Available Not Available calcium 600 mg (as carbonate )-vitamin D3 20 mcg (800 unit) tablet Take 1 tablet twice a day by oral route. 01/23 completed Not Available Not Available Not Available Gummy 400 mcg-35 mg-25 mg-5 mg chewable tablet Take 1 tablet every day by oral route. 03/09 completed Not Available Not Available Not Available PrePlus 27 mg iron-1 mg tablet TAKE 1 TABLET BY MOUTH EVERY DAY 10/03 completed Not Available Not Available Not Available Citracal- D3 Gummies 250 mg-12.5 mcg (500 unit) chewable tablet Take 1 tablet twice a day by oral route. 09/18 completed Not Available Not Available Not Available Yogurt Plus Calcium Gummies 250 mg-2.5 mcg (100 unit) chewable tablet Take 1 tablet twice a day by oral route. 10/03 completed Not Available Not Available Not Available Vitafol Gummies 3.33 mg iron-0.33 mg chewable tablet Chew 2 tablets every day by oral route. 03/09 completed Not Available Not Available Not Available bupropion HCl 150 mg tablet,12 hr sustained -release( smoking deterrent ) TAKE 1 TABLET BY MOUTH TWICE A DAY 10/08 completed Not Available Not Available Not Available Slynd 4 mg (28) tablet Take 1 tablet every day by oral route. 09/07 completed Not Available Not Available Not Available Vitals Date Recorded Body height Body mass index (BMI) Body weight Systolic blood pressure Diastolic blood pressure Provider Name and Address Organization Details Last Updated DateTime 09/07/2020 190.5 cm 36 kg/m2 503403.6 g 118 mm[Hg] 68 mm[Hg] Lovely Menezes MA [facility] 0 15:33:16 Date Recorded Body height Body mass index (BMI) Body weight Provider Name and Address Organization Details Last Updated DateTime 10/08/2020 190.5 cm 38.1 kg/m2 050887.67 g Ana Newby [place] [facility] 10/08/2020 11:59:22 Date Recorded Body height Body mass index (BMI) Body weight Systolic blood pressure Diastolic blood pressure Provider Name and Address Organization Details Last Updated DateTime 10/12/2020 190.5 cm 37.7 kg/m2 880849.9 g 110 mm[Hg] 82 mm[Hg] Azalia Ham MA [facility] 1 13:30:14 Date Recorded Body height Body mass index (BMI) Body weight Oxygen saturation Oxygen saturation in Arterial blood by Pulse oximetry Heart rate Respiratory rate Systolic blood pressure Diastolic blood pressure Provider Name and Address Organization Details Last Updated DateTime 4 190.5 cm 29.7 kg/m2 389511. 98 g 97 % 97 % 100 /min 16 /min 128 mm[Hg] 86 mm[Hg] Sera Hopkins MA [facility] 4 11:18:43 Date Recorded Body height Body mass index (BMI) Body weight Oxygen saturation Oxygen saturation in Arterial blood by Pulse oximetry Heart rate Systolic blood pressure Diastolic blood pressure Provider Name and Address Organization Details Last Updated DateTime 4 190.5 cm 29.4 kg/m2 746003. 21 g 99 % 99 % 81 /min 124 mm[Hg] 85 mm[Hg] Natasha Brownlee [place] 16:33:08 Date Recorded Respiratory rate Provider Name a nd Address Organization Details Last Updated DateTime 02/27/2024 18 /min KAITLYN KERR Attn: Accounting,[address] [place], [address], [place] 02/28/2024 08:42:18 Social History Question Answer Notes LastModified by Organizat ion Details LastModified Time Tobacco Smoking Status Never Smoker Sarah Wilkerson MA null, [place] - [place] 06/27/2016 15:19:46 Do You Have An Advance Directive? No Information not available 12/15/2016 What Is Your Level Of Alcohol Consumption? None Information not available 12/15/2016 If You Are , What Was Your Level Of Alcohol Consumption Prior To ? None Information not available 12/15/2016 Plan Yes Repeat [email or web address] Information not available 03/09/2020 Is Blood Transfusion Acceptable In An Emergency? Yes Information not available 12/15/2016 What Is Your Level Of Caffeine Consumption? None Information not available 12/15/2016 Live With Cats/exposure To Cat Litter No Information not available 12/15/2016 How Much Tobacco Do You Chew? None Information not available 12/15/2016 Are You Currently Employed? No Information not available 12/15/2016 What Type Of Diet Are You Following? REGULAR Information not available 12/15/2016 Which Illicit Or Recreational Drugs Have You Used? None Information not available 12/15/2016 Do You Or Have You Ever Used E-cigarettes Or Vape? Never Used Electronic Cigarettes Information not available 11/19/2019 Education 8 Information no t available 12/15/2016 What Is Your Occupation? Disability Information not available 12/15/2016 Have There Been Any Changes To Your Family Or Social Situation? No Information not available 12/15/2016 Frequent Air Travel No Information not available 12/15/2016 Illicit Drugs Pre- None Information not available 12/15/2016 Live Alone Or With Others? With Others Information not available 12/15/2016 Marital Status Single Informatio n not available 12/15/2016 What Was The Date Of Your Most Recent Tobacco Screening? 01/18/2024 [email or web address] Information not available 01/18/2024 How Many Children Do You Have? 2 Information not available 09/18/2017 Performs Monthly Self-breast Exam? No Information not available 09/18/2017 Do You Use Protection During Sex? No [email or web address] Information not available 01/23/2019 What Is Your Relationship Status? Single Information not available 09/18/2017 Seat Belts Used Routinely Yes Information not available 12/15/2016 Are You Sexually Active? Yes Information not available 12/15/2016 Do You Have Smoke And Carbon Monoxide Detectors In Your Home? Yes Information not available 12/15/2016 Are You Passively Exposed To Smoke? Yes Pt States Is Sometimes Around People That Smoke Information not available 12/15/2016 Do You Or Have You Ever Used Smokeless Tobacco? Never Used Smokeless Tobacco Information not available 11/19/2019 How Much Tobacco Do You Smoke? No [email or web address] Information not available 01/12/2017 Smoking Pre- No Information not available 12/15/2016 General Stress Level Low Information not available 12/15/2016 Do You Use Sunscreen Routinely? No Information not available 12/15/2016 Supplements Information n ot available 12/15/2016 On What Date Was Tobacco Cessation Counseling Provided? 01/18/2024 [email or web address] Information not available 01/18/2024 How Many Years Have You Smoked Tobacco? 0 [email or web address] Information not available 01/12/2017 Sex: Unknown Functional Status Question Answer Note LastModified by Organization D etails LastModified Time What is your exercise level? None Information not available 12/15/2016 Mental Status None recorded. Family History Relationship Description Onset Age of this Age Resolved Age Notes LastModified by Organization Details LastModified Time Father Chronic obstructive pulmonary disease [email or web address] Not available 2015 15:19:46 Father Diabetes mellitus [email or web address] Not available 2015 15:19:46 Father Heart disease [email or web address] Not available 2015 15:19:46 Medical History Condition Response Other N High Blood Pressure N Breast Cancer N Kidney or Bladder Problems N Thyroid Problems N GI Problems N Lung Disease N Depression N Blood Clots N Acne N Breast Problem N Eating Disorder N Anemia N Anesthesia Complications N Headaches/Migraines N Anxiety Disorder N Ovarian Cancer N Diabetes N Muscle, Joint, or Bone Problems N Blood Transfusions N Seizures/Epilepsy N Polyps N Infertility N Acid Reflux (GERD) N Cancer N Abuse/Domestic Violence N Asthma N Endometriosis N High Cholesterol N Hepatitis N Liver Disease N Heart Disease N Pre-Eclampsia N Osteoporosis N Gynecological History Statement/Question Response Abnormal Pap Y Flow Date of LMP 01/08/2024 On BCP's at Conception? N STIs/STDs Yes HPV Vaccine Y Duration of Flow (days) 4 Age at Menarche 10 Current Control Method None Age at First Child 18 Sexually Active? Y Menses Monthly N Date of Last Pap Smear 01/23/2019 Sexual Problems? N LMP Approximate Desired Control Method BCPs Obstetrics History GPAL:G 5 P 3 0 2 4 Type Value Multiple Births 0 Full Term 3 Induced 0 Spontaneous 2 Premature 0 Living 4 Ectopics 0 Total 5 Immunizations Vaccine Type Date Status Note Provider Nam e and Address Organization Details Recorded Time Tdap 05/01/2017 completed Not Available [facility] 10/19/2019 02:33:54 Tdap 05/07/2020 completed Lovely Menezes MA [facility], [place] - [facility] 05/07/2020 10:13:50 Past Encounters Encounter ID Performer Location Encounter Start Date Encounter Closed Date Diagnosis/Indication Diagnosis SNOMED-CT Code Diagnosis ICD10 Code Diagnosis Note [id number] MARITZA Moody (Adult Med) [address] [place] [address] [id number] 0 06/27/2016 14:26:55 06/27/2016 15:53:28 Urinary tract infectious disease 08551031 N39.0 [id number] MARITZA Moody (Adult Med) [address] [place] [address] [id number] 0 07/11/2016 14:32:03 07/11/2016 15:42:42 Acute urinary tract infection 044514352 N39.0 Vertigo 495620327 R42 1 week [id number] Johny Parrish (TECHNICAL DIRECTOR) [address] [place] [address] [id number] 0 12/15/2016 10:13:50 12/16/2016 12:33:01 Routine care 623609042 Z34.92 Hyperemesi s gravidarum 96215108 O21.0 [id number] QUOC Suazo (TECHNICAL DIRECTOR) [address] [place] [address] [id number] 0 12/30/2016 15:51:40 12/30/2016 16:19:04 Routine care 378067767 Z34.92 [id number] Johny Parrish (TECHNICAL DIRECTOR) [address] [place] [address] [id number] 0 01/12/2017 15:57:22 01/13/2017 12:49:10 Routine care 281700957 Z34.81 Abnormal progesterone 13 2889070 R94.7 Genital he rpes simplex 24740155 A60.9 RhD negative 304810226 Z 01.83 Chlamydia trachomatis infection 727622533 A74.9 Rubella non-immune 77320 4009 Z01.84 [id number] Johny Parrish (TECHNICAL DIRECTOR) [address] [place] [address] [id number] 0 02/09/2017 15:05:28 02/13/2017 15:58:21 Routine care 676997763 Z34.81 Abnormal progesterone 13 9611111 R94.7 [id number] Johny Parrish (TECHNICAL DIRECTOR) [address] [place] [address] [id number] 0 03/09/2017 15:41:55 03/14/2017 12:50:45 Routine care 645581251 Z34.81 RhD negative 567023036 Z 01.83 Chlamydia trachomatis infection 767959406 A74.9 Abnormal progesterone 13 9476557 R94.7 [id number] Johny Parrish (TECHNICAL DIRECTOR) [address] [place] [address] [id number] 0 04/03/2017 15:52:42 04/03/2017 17:15:45 Routine care 762127659 Z34.81 RhD negative 309825552 Z 01.83 Abnormal progesterone 13 4400303 R94.7 Deliveries by [id number] O82 [id number] Johny Parrish (TECHNICAL DIRECTOR) [address] [place] [address] [id number] 0 05/01/2017 09:30:47 05/03/2017 13:31:32 Routine care 319183035 Z34.81 screening 2437 51358 Z36 [id number] Johny Parrish (TECHNICAL DIRECTOR) [address] [place] [address] [id number] 0 05/15/2017 14:42:05 05/15/2017 15:36:07 Routine care 941630709 Z34.81 RhD negative 035290558 Z 01.83 Deliveries by [id number] O82 Rubella non-immune 14333 4009 Z01.84 Genital he rpes simplex 34460579 A60.9 Chlamydia trachomatis infection 770116215 A74.9 Gastroesop hageal reflux disease 950741410 K21.9 [id number] Johny Parrish (TECHNICAL DIRECTOR) [address] [place] [address] [id number] 0 06/12/2017 12:38:32 06/12/2017 14:02:15 Routine care 711164904 Z34.81 Candidiasis of vagina 72 152632 B37.3 Iron defic iency anemia 39559783 D50.9 Abnormal progesterone 13 1287311 R94.7 Deliveries by [id number] O82 Scheduled for 07/28/17. [id number] Johny Parrish (TECHNICAL DIRECTOR) [address] [place] [address] [id number] 06/27/2017 11:39:02 06/27/2017 13:15:38 Routine care 909785196 Z34.81 Deliveries by [id number] O82 Scheduled for 07/28/17. 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 Deliveries by [id number] O82 scheduled for 07/28 RhD negative 189847594 Z 01.83 Genital he rpes simplex 07727988 A60.9 will cont antiviral throughout Rubella non-immune [address] reptococcus carrier 0878994024 103 Z22.330 Chlamydial infection 105 963215 A74.9 [id number] Johny Alvarezman [facility] (TECHNICAL DIRECTOR) [address] [place] [address] [id number] 0 08/14/2017 16:15:25 08/15/2017 12:38:59 state 73503361 Z39.2 incision check Deliveries by [id number] O82 done 07/28 [id number] MD Francois Joseph (TECHNICAL DIRECTOR) [address] [place] [address] [id number] 0 09/18/2017 14:33:04 09/18/2017 16:37:45 care 693906919 Z39.2 Subacute endometritis 19 7093937 N71.0 counseled about it. Irregular bleeding possible from subclinica l endometrit is. Since patient is allergic to augmentin, clindamyci n prescribed . If bleeding does not improve in 2 - 3 weeks will order TVUS at that time. ADVISED PATIENT TO GO TO ER IF INCREASED ABDOMINAL PAIN, HEAVY VAGINAL BLEEDING 1PAD PER HOUR AND FEVER > 100.4, [id number] MD Francois Joseph (TECHNICAL DIRECTOR) [address] [place] [address] [id number] 10/06/2017 14:20:48 10/06/2017 15:02:09 Gynecologic examination 80151640 Z01.419 No tampon found in vagina. Advised patient to go to ER if bleeding more than a pad per hour, fever > 100.4, and severe pelvic or back pain. Advised patient to make an appointmen t if symptoms get worse. [id number] MARITZA Moody (Adult Med) [address] [place] [address] [id number] 0 11/14/2017 13:48:53 11/14/2017 15:05:04 Adult health examination 530544498 Z00.00 Low back pain 827826756 M54.5 Obesity 109896175 E66.9 Gastroesop hageal reflux disease 253863400 K21.9 Urinary tr act infectious disease 51932398 N39.0 [id number] Johny Jerichovincent Parrish (TECHNICAL DIRECTOR) [address] [place] [address] [id number] 0 11/15/2017 11:16:40 11/15/2017 13:30:33 At increased risk of sexually transmitted infection 476622074 Z20.2 Urinary tr act infectious disease 30628908 N39.0 Family chelsea nning surveillance 136019278 Z30.09 doesn't believe in control [id number] MD Francois Joseph [facility] (TECHNICAL DIRECTOR) [address] [place] [address] [id number] 0 02/12/2018 15:20:47 02/13/2018 11:17:22 Venereal disease screening 219519316 Z11.3 Z20.2 Menstrual spotting 24248 05 N92.5 Counseled about it. [id number] CURTIS Broderick (TECHNICAL DIRECTOR) [address] [place] [address] [id number] 0 01/23/2019 14:49:06 01/23/2019 17:47:21 Amenorrhea 08377528 N91.2 Exposure t o sexually transmissible disorder 255099477 Z20.[address] reptococcus carrier 3798822235 103 Z22.330 Positive UTI from hospital Deliveries by [id number] O82 done 07/28 Obesity 639326813 E66.9 Genital he rpes simplex 95730035 A60.9 will cont antiviral throughout Gynecologi c examination 06715940 Z01.419 Polycystic ovaries 38882 008 E28.2 [id number] MARITZA Moody (Adult Med) [address] [place] [address] [id number] 0 05/31/2019 14:07:04 05/31/2019 15:04:42 Low back pain 331106978 M54.5 Gastroesop hageal reflux disease 484734399 K21.9 Constipation 35946686 K5 9.00 Dyspnea 481286910 R06.02 Low blood pressure 13941 003 I95.9 all symptoms resolved with stopping Ibuprofen [id number] Bella Parrish (TECHNICAL DIRECTOR) [address] [place] [address] [id number] 06/24/2019 15:20:48 06/25/2019 13:11:47 Routine care 301338259 Z34.93 Venereal d isease screening 963476992 Z11.3 screening 2437 70456 Z36.85 Abnormal progesterone 13 5414669 R94.7 Deliveries by [id number] O82 done 07/28 RhD negative 943870570 Z 01.[address] reptococcus carrier 7589149135 103 Z22.330 Positive UTI from hospital Genital he rpes simplex 25972799 A60.9 will cont antiviral throughout Obesity 169387505 E66.9 [id number] MARITZA Moody (Adult Med) [address] [place] [address] [id number] 0 08/06/2019 14:34:00 08/06/2019 15:43:19 Low back pain 154805304 M54.5 Melanocytic nevus 490799 001 D22.9 Gastroesop hageal reflux disease 689444850 K21.9 Obesity 266015542 E66.9 [id number] Johny Echavarria Francois (TECHNICAL DIRECTOR) [address] [place] [address] [id number] 0 10/03/2019 15:39:34 10/07/2019 12:58:46 Risk of exposure to communicable disease 385557130 Z20.9 Acute urin ya tract infection 725897978 N39.0 Family chelsea nning surveillance 635040466 Z30.09 doesn't believe in control Deliveries by [id number] O82 done 07/28 Genital he rpes simplex 68236323 A60.9 will cont antiviral throughout Group B St reptococcus carrier 5670868324 103 Z22.330 Positive UTI from hospital Allergic rhinitis 239705 04 J30.9 [id number] MARITZA Moody (Adult Med) [address] [place] [address] [id number] 0 11/04/2019 14:28:14 11/05/2019 10:22:35 Shoulder strain 314903515 S46.911A Gastroesop hageal reflux disease 264912885 K21.9 Obese 599596255 E66.9 [id number] CURTIS Bledsoe (TECHNICAL DIRECTOR) [address] [place] [address] [id number] 0 11/19/2019 09:52:16 11/20/2019 14:06:25 Routine care 447796114 Z34.93 Venereal d isease screening 248765547 Z11.3 screening 2437 34557 Z36.85 Deliveries by [id number] O82 2016 Genital he rpes simplex 39589499 A60.9 will cont antiviral throughout Past pregn iza history of miscarriage 689654201 Z87.59 Obesity 272877296 E66.9 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 Heterozygo us methylenetetrahydrofo late reductase mutation 6156627753 56475 E72.12 B12 injection 11/28 Past pregn iza history of miscarriage 013171335 Z87.59 Abnormal progesterone 13 9330830 R94.7 Declines progestero ne as she believes it was the cause of her prior miscarriag e. [id number] Johny Parrish (TECHNICAL DIRECTOR) [address] [place] [address] [id number] 0 12/23/2019 16:24:40 12/24/2019 08:44:31 Routine care 958089637 Z34.93 Dehydration 49420374 E86 .0 [id number] Johny Parrish (TECHNICAL DIRECTOR) [address] [place] [address] [id number] 0 01/02/2020 12:30:22 01/03/2020 08:43:18 Routine care 720457238 Z34.93 Heterozygo us methylenetetrahydrofo late reductase mutation 1711554315 31158 E72.12 heterozygo us for both the MTHFR C677T and U1968W variants (one copy of each). Compound heterozygo sity for the C677T Deliveries by [id number] O82 2016 Past pregn iza history of miscarriage 119743413 Z87.59 Obesity 192894048 E66.9 RhD negative 378064268 Z 01.83 at [address] reptococcus carrier 1682466103 103 Z22.330 Positive UTI from hospital Genital he rpes simplex 88195775 A60.9 will cont antiviral throughout [id number] Johny Parrish (TECHNICAL DIRECTOR) [address] [place] [address] [id number] 0 01/22/2020 13:13:48 01/22/2020 13:41:55 Routine care 919532678 Z34.93 Heterozygo us methylenetetrahydrofo late reductase mutation 2096063536 88916 E72.12 heterozygo us for both the MTHFR C677T and I9724J variants (one copy of each). Compound heterozygo sity for the C677T Deliveries by O82 [address] reptococcus carrier 9845399675 103 Z22.330 Positive UTI from hospital Genital he rpes simplex 49235927 A60.9 will cont antiviral throughout Chlamydial infection 105 143363 A74.9 Obesity 406727710 E66.9 RhD negative 106401795 Z 01.83 at 28 weeks Eruption 944265313 R21 [id number] CURTIS Bledsoe (TECHNICAL DIRECTOR) [address] [place] [address] 0 02/06/2020 14:14:27 02/07/2020 08:05:05 Routine care 941448518 Z34.93 Deliveries by O82 2016 Genital he rpes simplex 28048195 A60.9 will cont antiviral throughout Group B St reptococcus carrier 5051762150 103 Z22.330 Positive UTI from hospital Heterozygo us methylenetetrahydrofo late reductase mutation 6231526304 36605 E72.12 heterozygo us for both the MTHFR C677T and X5187L variants (one copy of each). Compound heterozygo sity for the C677T RASH DUE TO B12 Abnormal progesterone 13 1903232 R94.7 [id number] Johny Parrish (TECHNICAL DIRECTOR) [address] [place] [address] 81484-017 0 03/09/2020 10:08:34 03/10/2020 07:06:49 Abnormal progesterone 410332444 R94.7 Deliveries by [id number] O82 2016 Genital he rpes simplex 92775781 A60.9 will cont antiviral throughout Group B St reptococcus carrier 4596145685 103 Z22.330 Heterozygo us methylenetetrahydrofo late reductase mutation 3915178968 18014 E72.12 heterozygo us for both the MTHFR C677T and Q4556U variants (one copy of each). Compound heterozygo sity for the C677T RASH DUE TO B12 Past pregn iza history of miscarriage 953097355 Z87.59 RhD negative 134530218 Z 01.83 at 28 weeks Routine an tenatal care 677546083 Z34.93 [id number] Johny Parrish (TECHNICAL DIRECTOR) [address] [place] [address] [id number] 0 04/08/2020 14:42:45 04/09/2020 07:59:17 Routine care 366417729 Z34.93 Heterozygo us methylenetetrahydrofo late reductase mutation 2553123682 20387 E72.12 heterozygo us for both the MTHFR C677T and L9364K variants (one copy of each). Compound heterozygo sity for the C677T RASH DUE TO B12 Deliveries by [id number] O82 2016 Genital he rpes simplex 75700885 A60.9 will cont antiviral throughout Group B St reptococcus carrier 4966312995 103 Z22.330 Chlamydial infection 105 972085 A74.9 Pruritic rash 09549936 L 28.2 [id number] Johny Parrish (TECHNICAL DIRECTOR) [address] [place] [address] [id number] 0 05/07/2020 09:12:25 05/08/2020 08:20:34 Routine care 074045474 Z34.93 screening 2437 54402 Z36.9 Deliveries by [id number] O82 2016 [id number] Johny Parrish (TECHNICAL DIRECTOR) [address] [place] [address] 74630-004 0 06/04/2020 11:40:28 06/04/2020 13:13:17 Routine care 694842974 Z34.83 Heterozygo us methylenetetrahydrofo late reductase mutation 7991593806 59526 E72.12 heterozygo us for both the MTHFR C677T and B2891A variants (one copy of each). Compound heterozygo sity for the C677T RASH DUE TO B12 Group [address] reptococcus carrier 1313788949 103 Z22.330 RhD negative 789456321 Z 01.83 at 28 weeks Rubella non-immune 32038 4009 Z01.84 Deliveries by [id number] O82 2016 [id number] Johny Parrish (TECHNICAL DIRECTOR) [address] [place] [address] [id number] 0 06/10/2020 15:15:03 06/11/2020 13:18:48 Routine care 623163414 Z34.83 Heterozygo us methylenetetrahydrofo late reductase mutation 1842889036 34947 E72.12 heterozygo us for both the MTHFR C677T and P5785B variants (one copy of each). Compound heterozygo sity for the C677T RASH DUE TO B12 Deliveries by [id number] O82 2016 - induced hypertension 96440248 O13.9 Vasovagal syncope 597447 005 R55 [id number] Johny Parrish (TECHNICAL DIRECTOR) [address] [place] [address] [id number] 0 06/18/2020 11:00:50 06/20/2020 11:05:46 Routine care 687201052 Z34.83 Heterozygo us methylenetetrahydrofo late reductase mutation 3522090345 27421 E72.12 heterozygo us for both the MTHFR C677T and T3790G variants (one copy of each). Compound heterozygo sity for the C677T RASH DUE TO B12 Deliveries by [id number] O82 2016 [id number] Johny Parrish (TECHNICAL DIRECTOR) [address] [place] [address] [id number] 0 07/27/2020 14:56:08 07/28/2020 09:18:22 care 793491530 Z39.2 Deliveries by [id number] O82 2013, 2016, 2019 Postoperative pain 99489 9007 G89.18 [id number] Johny Parrish (TECHNICAL DIRECTOR) [address] [place] [address] 06636-969 0 08/25/2020 08:30:28 08/31/2020 09:20:59 Heterozygous methylenetetrahydrofo late reductase mutation 8215663820 63910 E72.12 heterozygo us for both the MTHFR C677T and N0345T variants (one copy of each). Compound heterozygo sity for the C677T RASH DUE TO B12 Deliveries by [id number] O82 2013, 2016, 2019 Family chelsea nning surveillance 865567924 Z30.09 doesn't believe in control Abnormal progesterone 13 7134334 R94.7 [id number] Johny Parrish (TECHNICAL DIRECTOR) [address] [place] [address] 82756-106 0 09/07/2020 15:16:12 09/08/2020 10:14:07 Family planning surveillance 685917768 Z30.09 Paraguard IUD insertion today. F/u in 2 months for IUD check. Insertion of intrauterine contraceptive device 89003639 Z30.430 Paraguard IUD insertion today. F/u in 2 months for IUD check. Obesity 807936684 E66.9 [facility] 49893498 B37 .9 [id number] [facility] (TECHNICAL DIRECTOR) [address] [place] [address] 88937-894 0 10/08/2020 08:02:05 10/14/2020 12:20:28 Surveillance of intrauterine device contraception done 4265894573 20588 Z30.40 Heterozygo us methylenetetrahydrofo late reductase mutation 9128787932 30073 E72.12 heterozygo us for both the MTHFR C677T and W1636D variants (one copy of each). Compound heterozygo sity for the C677T RASH DUE TO B12 Obesity 595127748 E66.9 [id number] [facility] (TECHNICAL DIRECTOR) [address] [place] [address] [id number] 0 10/12/2020 13:03:16 10/14/2020 13:11:39 Removal of intrauterine device 52621680 Z30.432 Family chelsea nning surveillance 432484236 Z30.09 Paraguard IUD insertion today. F/u in 2 months for IUD check. Exposure t o sexually transmissible disorder 170545252 Z20.2 Heterozygo us methylenetetrahydrofo late reductase mutation 8686986524 95010 E72.12 heterozygo us for both the MTHFR C677T and V4568A variants (one copy of each). Compound heterozygo sity for the C677T RASH DUE TO B12 Group [address] reptococcus carrier 2811788777 103 Z22.785 [id number] KAITLYN KERR [facility] [address] [place] [address] 01/18/2024 11:12:30 01/18/2024 11:46:59 Excessive salivation 93128445 K11.7 x13 yrsalways spitting, increased secretions in her moutha/w intermitte nt dysphagiar equesting referral Chronic back pain 452651 002 G89.29 since she was a teenager and fell off 10 ft fencestart s in mid back and moves to lower backdiffic ulty standing for long periods of time and has to bend forward when doing dishesPEx- nl, FROM lumbar and thoracic spinept requesting pain medication , only thing that works for me ordered XR thoracic and lumbar spinewill give tramadol for 2 wks, pt aware will not prescribe hydrocodon e and if would like to continue tramadol needs CS and UDS Genital he rpes simplex type 2 [id number] A60.00 denies active outbreakre questing medication to take if her partner has herpesdisc ussed with pt does not need to take medication unless she is having an active outbreak Obesity 999546128 E66.9 discussed increasing exercise and healthier food options, high protein, low fat dietroutin e labs Depression screening 171 332164 Z13.31 0 [id number] KAITLYN KERR [facility] [address] [place] [address] 02/27/2024 16:13:00 02/27/2024 17:00:15 Chronic back pain [id number] G89.29 02/27/24: starting PT 03/08/24 01/31/24: XR lumbar spine normal, will refer to PT 01/18/24:si nce she was a teenager and fell off 10 ft fencestart s in mid back and moves to lower backdiffic ulty standing for long periods of time and has to bend forward when doing dishesPEx- nl, FROM lumbar and thoracic spinept requesting pain medication , only thing that works for me ordered XR thoracic and lumbar spinewill give tramadol for 2 wks, pt aware will not prescribe hydrocodon e and if would like to continue tramadol needs CS and UDS Excessive salivation 538 59499 K11.7 02/27/24: requesting new referral for ENT 01/18/24:x1 3 yrsalways spitting, increased secretions in her moutha/w intermitte nt dysphagiar equesting referral Depression screening 171 954876 Z13.31 3 Health Concerns Section Related Observation LastModified by Organization Detai ls LastModified Time None Recorded Concern Status LastModified by Organization Details LastModified Time None Recorded Advance Directives Directive N: Payers Encounter Date Sequence Insurance Name Policy Number Policy Mayorga Covered Member ID Mayorga Member ID Guarantor Name 09/07/2020 1 [place] Isabela Hoid [id number] Isabela Hoid 09/07/2020 2 [place]IC[place] REPLACEMENT PRIMARY) Isabela Hoid [id number] Isabela Hoid 10/08/2020 [place] Isabela Hoid [id number] Isabela Hoid 10/08/2020 2 [place]PLACEMENT [place]) Isabela Hoid [id number] Isabela Hoid 10/12/2020 1 [place] Isabela Hoid [id number] Isabela Hoid 10/12/2020 2 [place]PLACEMENT [place]) Isabela Hoid [id number] Isabela Hoid 01/18/2024 1 [place] Isabela Hoid [id number] Isabela Hoid 01/18/2024 2 [place]IC[place] REPLACEMENT PRIMARY) Isabela Hoid [id number] Isabela Hoid 02/27/2024 1 [place] Isabela Hoid [id number] Isabela Hoid 02/27/2024 2 [place]IC[place] REPLACEMENT [place]) Isabela Hoid [id number] Isabela Hoid Notes Date Note Type Note Provider Name and Address Organization Details Recorded Time 09/07/2020 text/html OCP CheckReporte d bypatient.Associate d Symptoms:regular menses; no BTB menses; no side effects 24 y/o F, here for IUD insertion. She would like referral for bariatric surgery. BERTRAM Ceron - [facility] 09/09/2020 14:26:21 10/08/2020 text/html OCP CheckReporte d bypatient.Associate d Symptoms:regular menses; no BTB menses;headaches;bl oating;mood changes 24 y/o F, here for IUD discussion wants it removed. She would like referral for bariatric surgery. BERTRAM Ceron - [facility] 10/08/2020 21:11:21 10/12/2020 text/html OCP CheckReporte d bypatient.Associate d Symptoms:regular menses; no BTB menses; no side effects 24 y/o F, here for IUD removal. She would like referral for bariatric surgery. Johny herrera, [facility] 10/12/2020 15:23:01 01/18/2024 text/html Pt presents to establish care as a new patient. Reports that she is chronically spitting a/w intermittent inability to swallow. C/o lots of secretions in my mouth since she was 15 yrs old. Requesting referral to specialist.C/o chronic mid and low back pain since she was a teenager. States that she fell off a 10 ft fence and landed on her back, did not seek medical attention. Endorses that pain is worse due to 5 epidurals. Difficulty standing for long periods of time and has to bend forward when doing dishes due to pain. No relief with tylenol, allergic to ibuprofen. Denies saddle anesthesia or loss of bowel/bladder. Expresses that the only medication that works for her is hydrocodone. Denies fever, chills, chest pain, SOB, n/v/d, abd pain, dizziness, weakness, or headaches. KAITLYN KERR Attn: Accounting,[address] [place], [address], [facility] 01/18/2024 15:30:46 02/27/2024 text/html Pt presents for 1 mo f/u. Reports that she missed initial PT eval, but has appt 03/08/24. States that she has tried to contact ENT for appt, but no one calls her back. KAITLYN KERR Attn: Accounting[address] [place], [address], [facility] 02/28/2024 08:43:46 OBGyn Episode Ob Episode Information Episode Created Date Number of Fetuses Patient Bloodtype Patient rh Status Prepregnancy Weight lbs Domestic Partner Domestic Partner Phone Father Name Milling Machine Operator Gear Status 11/19/19 20 1 CLOSED Fetus Data First Name Last Name Admitted to NICU Weight (g) Sex Living Outcome Pediatric Complications Fetus ID Race Codes Race Delivery Type , Spontane ous [id number] Felix Calculation Initial Felix Date Initial Exam Date Initial Exam Provider Initial Ultrasound Date Last Menstrual Period Date Ultra Sound Weeks Gestation 0 Eighteen To Twenty Week Felix Update Ultra Sound Date Fundal Height At Umbil Quickening Date Ultra Sound Latest Weeks Gestation Final Felix Confirmed By Final Felix Confirmed Date Final Felix Date Ultra Sound Latest Days Gestation 0 0 Menstrual History Last Menstrual Date Menses Monthly On Bcp Conception Prior Menses Frequency Hcg Plus Date Menarche Onset Age Delivery Information Delivery Date Delivery Type Labor Anesthesia Weeks Gestation Incision Type Labor Labor Length Hrs Delivered By Post Complications Tubal Sterilization Discharge Date Comments 8 11/19/19 2 0 D&C SAB after fall down stairs [id number] Discharge Information Feeding Method Contraceptive Method Maternal HG B and HCT Levels Ob Episode Information Episode Created Date Number of Fetuses Patient Bloodtype Patient rh Status Prepregnancy Weight lbs Domestic Partner Domestic Partner Phone Father Name Milling Machine Operator Gear Status 06/24/20 19 1 224 CLOSED Fetus Data First Name Last Name Admitted to NICU Weight (g) Sex Living Outcome Pediatric Complications Fetus ID Race Codes Race Delivery Type [id number] Problems Problem Notes Problem Name Start Date End Date Resolution Snomed Code Not e 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 [id number] Felix Calculation Initial Felix Date Initial Exam Date Initial Exam Provider Initial Ultrasound Date Last Menstrual Period Date Ultra Sound Weeks Gestation 02/18/2020 06/24/2019 [email or web address] 05/14/2019 0 Eighteen To Twenty Week Felix Update Ultra Sound Date Fundal Height At Umbil Quickening Date Ultra Sound Latest Weeks Gestation Final Felix Confirmed By Final Felix Confirmed Date Final Felix Date Ultra Sound Latest Days Gestation 0 02/18/20 20 0 Pre-zabrina Flowsheet Flowsheet Date 06/24/2019 Aguirre Score Blood Edema Fundus Height Fundus Units Glucose Ketones Leukocytes Nitrite Labor Signs Protein Cervic Dilation Cervic Effacement Cervic Station trace none none negative neg Type Weight in lbs Pre/Post Dialysis Refused Weight 224.714601120957 BP Diastolic BP Location Tested BP Systolic BP Type 48 86 sitting Fetus Heart Rate Present Fetus Movement Comments Menstrual History Last Menstrual Date Menses Monthly On Bcp Conception Prior Menses Frequency Hcg Plus Date Menarche Onset Age 0805/14/2019 false Delivery Information Delivery Date Delivery Type Labor Anesthesia Weeks Gestation Incision Type Labor Labor Length Hrs Delivered By Post Complications Tubal Sterilization Discharge Date Comments 9 7.6 SAB Discharge Information Feeding Method Contraceptive Method Maternal HG B and HCT Levels Ob Episode Information Episode Created Date Number of Fetuses Patient Bloodtype Patient rh Status Prepregnancy Weight lbs Domestic Partner Domestic Partner Phone Father Name Milling Machine Operator Gear Status 11/19/[address] Shanae Beckwith CLOSED Fetus Data First Name Last Name Admitted to NICU Weight (g) Sex Living Outcome Pediatric Complications Fetus ID Race Codes Race Delivery Type Christen Gregory ll false 3260.19 25 M Full Term 14038 2054-5 Black or Afric an Ameri can Repeat Problems Problem Notes yes to epidural, yes to circ umcision if boy, bottle feeding, nurse practitioner physicians assistant Dr. Beckwith, [facility] condoms boy per ultrasound, circumcision is yes. 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 Compound heterozygosity for the C677T Genital herpes simplex 01/13/20 [id number] Group B Streptococcus carrier 07/06/20 [id number] Felix Calculation Initial Felix Date Initial Exam Date Initial Exam Provider Initial Ultrasound Date Last Menstrual Period Date Ultra Sound Weeks Gestation 07/24/2020 11/19/2019 [email or web address] 12/04/2019 09/28/2019 6 Eighteen To Twenty Week Felix Update Ultra Sound Date Fundal Height At Umbil Quickening Date Ultra Sound Latest Weeks Gestation Final Felix Confirmed By Final Felix Confirmed Date Final Felix Date Ultra Sound Latest Days Gestation 12/04/19 20 6 [email or web address] 12/23/2019 020 5 Pre-zabrina Flowsheet Flowsheet Date 11/19/2019 Aguirre Score Blood Edema Fundus Height Fundus Units Glucose Ketones Leukocytes Nitrite Labor Signs Protein Cervic Dilation Cervic Effacement Cervic Station trace none 7 cm none negative neg Type Weight in lbs Pre/Post Dialysis Refused Weight 246.544036051541 BP Diastolic BP Location Tested BP Systolic BP Type 82 118 sitting Fetus Heart Rate Present Fetus Movement Comments Flowsheet Date 11/20/2019 Aguirre Score Blood Edema Fundus Height Fundus Units Glucose Ketones Leukocytes Nitrite Labor Signs Protein Cervic Dilation Cervic Effacement Cervic Station Type Weight in lbs Pre/Post Dialysis Refused Weight 249.883192930582 BP Diastolic BP Location Tested BP Systolic BP Type 64 124 sitting Fetus Heart Rate Present Fetus Movement Comments Flowsheet Date 12/03/2019 Aguirre Score Blood Edema Fundus Height Fundus Units Glucose Ketones Leukocytes Nitrite Labor Signs Protein Cervic Dilation Cervic Effacement Cervic Station neg none none negative neg Type Weight in lbs Pre/Post Dialysis Refused Weight 257.152681588344 BP Diastolic BP Location Tested BP Systolic BP Type 66 120 sitting Fetus Heart Rate Present Fetus Movement Comments Ob educational packet review ed and provided to patient. Test results reviewed. US scheduled for tomorrow. Flowsheet Date 12/23/2019 Aguirre Score Blood Edema Fundus Height Fundus Units Glucose Ketones Leukocytes Nitrite Labor Signs Protein Cervic Dilation Cervic Effacement Cervic Station Type Weight in lbs Pre/Post Dialysis Refused BP Diastolic BP Location Tested BP Systolic BP Type Fetus Heart Rate Present Fetus Movement Comments dizziness, headaches--Dehydr ation drink 3 liters gatorade per day Flowsheet Date 01/02/2020 Aguirre Score Blood Edema Fundus Height Fundus Units Glucose Ketones Leukocytes Nitrite Labor Signs Protein Cervic Dilation Cervic Effacement Cervic Station neg none 10 wks none negative none neg Type Weight in lbs Pre/Post Dialysis Refused With clothes 262.869706294962 BP Diastolic BP Location Tested BP Systolic BP Type 84 110 sitting Fetus Heart Rate Present A 166 Present Fetus Movement Comments Flowsheet Date 01/22/2020 Aguirre Score Blood Edema Fundus Height Fundus Units Glucose Ketones Leukocytes Nitrite Labor Signs Protein Cervic Dilation Cervic Effacement Cervic Station neg none 13 wks none negative Other (see comments ) neg Type Weight in lbs Pre/Post Dialysis Refused With clothes 268.869255049139 BP Diastolic BP Location Tested BP Systolic BP Type 72 124 sitting Fetus Heart Rate Present A 144 Present Fetus Movement Comments RASH Medrol steroid dose pac k stop all meds except pnv and prog Flowsheet Date 02/06/2020 Aguirre Score Blood Edema Fundus Height Fundus Units Glucose Ketones Leukocytes Nitrite Labor Signs Protein Cervic Dilation Cervic Effacement Cervic Station neg none 16 cm none negative none neg Type Weight in lbs Pre/Post Dialysis Refused With clothes 274.297270393075 BP Diastolic BP Location Tested BP Systolic BP Type 72 128 sitting Fetus Heart Rate Present A 162 Present Fetus Movement A No Comments afp/materniti/nipt/us Flowsheet Date 03/09/2020 Aguirre Score Blood Edema Fundus Height Fundus Units Glucose Ketones Leukocytes Nitrite Labor Signs Protein Cervic Dilation Cervic Effacement Cervic Station neg none 20 wks none negative none neg Type Weight in lbs Pre/Post Dialysis Refused With clothes 285.583558870268 BP Diastolic BP Location Tested BP Systolic BP Type 76 116 sitting Fetus Heart Rate Present A 147 Present Fetus Movement A Yes Comments sprained left ankle needs an kle immobilizer Flowsheet Date 04/08/2020 Aguirre Score Blood Edema Fundus Height Fundus Units Glucose Ketones Leukocytes Nitrite Labor Signs Protein Cervic Dilation Cervic Effacement Cervic Station neg trace 24 wks none negative none neg Type Weight in lbs Pre/Post Dialysis Refused With clothes 292.114478579998 BP Diastolic BP Location Tested BP Systolic BP Type 78 118 sitting Fetus Heart Rate Present A 140 Present Fetus Movement A Yes Comments Flowsheet Date 05/07/2020 Aguirre Score Blood Edema Fundus Height Fundus Units Glucose Ketones Leukocytes Nitrite Labor Signs Protein Cervic Dilation Cervic Effacement Cervic Station neg none 30 cm none negative none neg Type Weight in lbs Pre/Post Dialysis Refused With clothes 300.731546167298 BP Diastolic BP Location Tested BP Systolic BP Type 68 118 sitting Fetus Heart Rate Present A 136 Present Fetus Movement A Yes Comments 28w labs/tdap/gtt/repeat c/s 07/17 Flowsheet Date 06/04/2020 Aguirre Score Blood Edema Fundus Height Fundus Units Glucose Ketones Leukocytes Nitrite Labor Signs Protein Cervic Dilation Cervic Effacement Cervic Station trace trace 34 cm none negative none trace Type Weight in lbs Pre/Post Dialysis Refused With clothes 298.456889672907 BP Diastolic BP Location Tested BP Systolic BP Type 64 106 sitting Fetus Heart Rate Present A Present Fetus Movement A Yes Comments Flowsheet Date 06/10/2020 Aguirre Score Blood Edema Fundus Height Fundus Units Glucose Ketones Leukocytes Nitrite Labor Signs Protein Cervic Dilation Cervic Effacement Cervic Station Type Weight in lbs Pre/Post Dialysis Refused BP Diastolic BP Location Tested BP Systolic BP Type 90 140 sitting Fetus Heart Rate Present Fetus Movement Comments Flowsheet Date 06/18/2020 Aguirre Score Blood Edema Fundus Height Fundus Units Glucose Ketones Leukocytes Nitrite Labor Signs Protein Cervic Dilation Cervic Effacement Cervic Station neg none 35 wks none negative none neg 0cm 0% - 4 Type Weight in lbs Pre/Post Dialysis Refused With clothes 306.441285203264 BP Diastolic BP Location Tested BP Systolic BP Type 78 120 sitting Fetus Heart Rate Present A 144 Present Fetus Movement A Yes Comments repeat c/s 07/19 Flowsheet Date 07/27/2020 Aguirre Score Blood Edema Fundus Height Fundus Units Glucose Ketones Leukocytes Nitrite Labor Signs Protein Cervic Dilation Cervic Effacement Cervic Station Type Weight in lbs Pre/Post Dialysis Refused With clothes 280.39624727144 BP Diastolic BP Location Tested BP Systolic BP Type 66 112 sitting Fetus Heart Rate Present Fetus Movement Comments Menstrual History Last Menstrual Date Menses Monthly On Bcp Conception Prior Menses Frequency Hcg Plus Date Menarche Onset Age 1209/28/2019 false false 0 Genetic Screening And Infection History Question Response Note Patient's Age Will Be 35 Yea rs Or Older At Estimated Date of Delivery false Thalassemia (Uzbek, Spanish, Mediterranean, Or Background): MCV < 80 false Neural Tube Defect (Meningom yelocele, Spina Bifida, Or Anencephaly) false Congenital Heart Defect false Down Syndrome false Carlos-Sachs (eg, Episcopal, Cajun, Citizen Of [place]-Citizen Of [place]) f alse Issac Disease false Sickle Cell Disease Or Trait () false Hemophilia Or Other Blood Disorders false Muscular Dystrophy false Cystic Fibrosis false [place] false Mental Retardation/Autism false If Yes, Was Person Tested For Fragile X? false Other Inherited Genetic Or Chromosomal Disorder true MTFHR Maternal Metabolic Disorder (eg, Type 1 Diabetes , PKU) false Patient Or Baby's Father Had A Child With Defects Not Listed Above false Recurrent Loss, Or A Stillbirth false Medications (including Suppl ements, Vitamins, Herbs, OTC Drugs), Illicit/Recreational Drugs, Alcohol false If Yes, Agent(s) And Strength/Dosage false Any Other Genetic History false Live With Someone With TB Or Exposed To TB false Patient Or Partner Has History Of Genital Herpes false Rash Or Viral Illness Since Last Menstrual Perio d false History Of STD, Gonorrhea, Chlamydia, HPV, Syphi lis false Other Infection History true HSV, CT, GBS History of HIV false History of Hepatitis false Prior GBS-infected child false Plans and Education First Trimester Discussed Date Discussion Item Discussion Note Discuss ed By 12/03/2019 Anticipated course of care [email or web address] 12/03/2019 Alcohol [email or web address] 12/03/2019 Intimate partner violence jun [email or web address] 12/03/2019 Environmental/work hazards j [email or web address] 12/03/2019 Screening for aneuploidy jco [email or web address] 12/03/2019 Nutrition counseling ; special diet; dietary precautions (mercury, listeriosis) [email or web address] 12/03/2019 Childbirth classes/hospital facilities [email or web address] 12/03/2019 HIV and other routine tests [email or web address] 12/03/2019 Risk factors identif ied by history [email or web address] 12/03/2019 Weight gain counseling [email or web address] 12/03/2019 Exercise [email or web address] 12/03/2019 Teratogens [email or web address] 12/03/2019 Use of any medicatio ns (including supplements, vitamins, herbs, or OTC drugs) [email or web address] 12/03/2019 [email or web address] 12/03/2019 Sexual activity [email or web address] 12/03/2019 Tobacco/smoking cess ation counseling (ask, advise, assess, assist, and arrange) [email or web address] 12/03/2019 Illicit/recreational drugs j [email or web address] 12/03/2019 Dental care [email or web address] 12/03/2019 Travel [email or web address] 12/03/2019 Seat belt use [email or web address] 12/03/2019 [email or web address] [id number] 12/03/2019 Avoidance of saunas or hot tubs [email or web address] 12/03/2019 Toxoplasmosis precautions (cats/raw meat) [email or web address] Second Trimester Discussed Date Discussion Item Discussion Note Discuss ed By 04/08/2020 Selecting a care provider shanae beckwith md [facility] francois saleh 04/08/2020 family planning/tubal sterilization condoms [email or web address] 04/08/2020 Depression screening (when indicated) [email or web address] 04/08/2020 Abnormal lab values mwasserm an 04/08/2020 Signs and symptoms o f labor mwasserman 04/08/2020 [facility] 04/08/2020 Tobacco/smoking cess ation counseling (ask, advise, assess, assist, and arrange) [facility] Third Trimester Discussed Date Discussion Item Discussion Note Discuss ed By Delivery Information Delivery Date Delivery Type Labor Anesthesia Weeks Gestation Incision Type Labor Labor Length Hrs Delivered By Post Complications Tubal Sterilization Discharge Date Comments 0 None [facility] 39 [facility] None false 07/19/2020 Discharge Information Feeding Method Contraceptive Method Maternal HG B and HCT Levels Bottle Condoms Ob Episode Information Episode Created Date Number of Fetuses Patient Bloodtype Patient rh Status Prepregnancy Weight lbs Domestic Partner Domestic Partner Phone Father Name Milling Machine Operator Gear Status 12/16/19 17 1 CLOSED Fetus Data First Name Last Name Admitted to NICU Weight (g) Sex Living Outcome Pediatric Complications Fetus ID Race Codes Race Delivery Type 3770.25 6704 F Full Term 10094 Primary Felix Calculation Initial Felix Date Initial Exam Date Initial Exam Provider Initial Ultrasound Date Last Menstrual Period Date Ultra Sound Weeks Gestation 0 Eighteen To Twenty Week Felix Update Ultra Sound Date Fundal Height At Umbil Quickening Date Ultra Sound Latest Weeks Gestation Final Felix Confirmed By Final Felix Confirmed Date Final Felix Date Ultra Sound Latest Days Gestation 0 0 Menstrual History Last Menstrual Date Menses Monthly On Bcp Conception Prior Menses Frequency Hcg Plus Date Menarche Onset Age Delivery Information Delivery Date Delivery Type Labor Anesthesia Weeks Gestation Incision Type Labor Labor Length Hrs Delivered By Post Complications Tubal Sterilization Discharge Date Comments 4 Regional-Sp inal 40 Discharge Information Feeding Method Contraceptive Method Maternal HG B and HCT Levels Ob Episode Information Episode Created Date Number of Fetuses Patient Bloodtype Patient rh Status Prepregnancy Weight lbs Domestic Partner Domestic Partner Phone Father Name Milling Machine Operator Gear Status 12/16/19 17 1 O Negative 237 anshul charles undecided CLOSED Fetus Data First Name Last Name Admitted to NICU Weight (g) Sex Living Outcome Pediatric Complications Fetus ID Race Codes Race Delivery Type Aaliya h Kaley minie Wigfa ll false 3997.27 95 F true Full Term 25160 2106-3 White Repeat Problems Problem Notes 05/15/17 baby girl, Chaparro Roche Violette Charles, bottle feed, DARBYSujit Beckwith MD [facility] Condoms. MSitiara CURTIS 06/27/2017 mds06/12/17 Baby girl curtis salgado Problem Name Start Date End Date Resolution Snomed Code Not e Obesity [id number] Abnormal progesterone 01/12/2017 9785172 00 RhD negative 01/12/2017 331737022 Gastroesophageal reflux disease 05/15/2017 892299606 Chlamydial infection 312312256 Rubella non-immune 01/12/2017 187239015 Genital herpes simplex 01/12/2017 665064 06 Felix Calculation Initial Felix Date Initial Exam Date Initial Exam Provider Initial Ultrasound Date Last Menstrual Period Date Ultra Sound Weeks Gestation 08/01/2017 12/15/2016 [email or web address] 12/27/2016 09/01/2016 9 Eighteen To Twenty Week Felix Update Ultra Sound Date Fundal Height At Umbil Quickening Date Ultra Sound Latest Weeks Gestation Final Felix Confirmed By Final Felix Confirmed Date Final Felix Date Ultra Sound Latest Days Gestation 12/28/19 17 9 [email or web address] 01/12/2017 08/01/20 17 0 Pre- Flowsheet Flowsheet Date 12/15/2016 Aguirre Score Blood Edema Fundus Height Fundus Units Glucose Ketones Leukocytes Nitrite Labor Signs Protein Cervic Dilation Cervic Effacement Cervic Station trace none none negative trace 0cm 0% -4 Type Weight in lbs Pre/Post Dialysis Refused 237.125921860648 BP Diastolic BP Location Tested BP Systolic BP Type 68 112 sitting Fetus Heart Rate Present Fetus Movement Comments NOB, US ordered Flowsheet Date 12/30/2016 Aguirre Score Blood Edema Fundus Height Fundus Units Glucose Ketones Leukocytes Nitrite Labor Signs Protein Cervic Dilation Cervic Effacement Cervic Station Type Weight in lbs Pre/Post Dialysis Refused BP Diastolic BP Location Tested BP Systolic BP Type Fetus Heart Rate Present Fetus Movement Comments Flowsheet Date 01/12/2017 Aguirre Score Blood Edema Fundus Height Fundus Units Glucose Ketones Leukocytes Nitrite Labor Signs Protein Cervic Dilation Cervic Effacement Cervic Station neg none 11 wks none negative Cramping neg Type Weight in lbs Pre/Post Dialysis Refused 243.984961846370 BP Diastolic BP Location Tested BP Systolic BP Type 68 108 sitting Fetus Heart Rate Present A Absent Fetus Movement A No Comments Flowsheet Date 02/09/2017 Aguirre Score Blood Edema Fundus Height Fundus Units Glucose Ketones Leukocytes Nitrite Labor Signs Protein Cervic Dilation Cervic Effacement Cervic Station neg none 15 wks none negative none trace Type Weight in lbs Pre/Post Dialysis Refused 251.85164789505 BP Diastolic BP Location Tested BP Systolic BP Type 62 116 sitting Fetus Heart Rate Present A 148 Present Fetus Movement A No Comments AFP next week, us on 02/17/17 , repeat on 07/28/17 day before kamila's birthday. 4 week [facility] Flowsheet Date 03/09/2017 Aguirre Score Blood Edema Fundus Height Fundus Units Glucose Ketones Leukocytes Nitrite Labor Signs Protein Cervic Dilation Cervic Effacement Cervic Station 20 wks none Type Weight in lbs Pre/Post Dialysis Refused 256.969546153034 BP Diastolic BP Location Tested BP Systolic BP Type 72 122 sitting Fetus Heart Rate Present A 140 Present Fetus Movement A Yes Comments samples of Prenatals + Fe gi ellie; will re-check CBC and order US at future visit Flowsheet Date 04/03/2017 Aguirre Score Blood Edema Fundus Height Fundus Units Glucose Ketones Leukocytes Nitrite Labor Signs Protein Cervic Dilation Cervic Effacement Cervic Station neg none 25 cm none negative none neg Type Weight in lbs Pre/Post Dialysis Refused 262.819363999407 BP Diastolic BP Location Tested BP Systolic BP Type 68 130 sitting Fetus Heart Rate Present A 138 Present Fetus Movement A Decreased Comments 22.6 wk [facility] here for RO B, reports positive FM, but feels like it is decreased, orders for US given. [facility] and GTT in 4 weeks. Flowsheet Date 05/01/2017 Aguirre Score Blood Edema Fundus Height Fundus Units Glucose Ketones Leukocytes Nitrite Labor Signs Protein Cervic Dilation Cervic Effacement Cervic Station neg none 29 cm none negative none neg Type Weight in lbs Pre/Post Dialysis Refused 269.660550498956 BP Diastolic BP Location Tested BP Systolic BP Type 68 116 sitting Fetus Heart Rate Present A 150 Present Fetus Movement A Yes Comments Reports normal movemen t. Flowsheet Date 05/15/2017 Aguirre Score Blood Edema Fundus Height Fundus Units Glucose Ketones Leukocytes Nitrite Labor Signs Protein Cervic Dilation Cervic Effacement Cervic Station trace none 28 wks none negative Backpain neg Type Weight in lbs Pre/Post Dialysis Refused 274.447622603943 BP Diastolic BP Location Tested BP Systolic BP Type 76 122 sitting Fetus Heart Rate Present A 148 Present Fetus Movement A Yes Comments 28.6 week [facility]. GTT completed and WNL. F/u 2 weeks. 3D US at [place] orders given. Flowsheet Date 06/12/2017 Aguirre Score Blood Edema Fundus Height Fundus Units Glucose Ketones Leukocytes Nitrite Labor Signs Protein Cervic Dilation Cervic Effacement Cervic Station trace none 28 cm none negative none trace Type Weight in lbs Pre/Post Dialysis Refused 278.299315440205 BP Diastolic BP Location Tested BP Systolic BP Type 68 100 sitting Fetus Heart Rate Present A 155 Present Fetus Movement A Yes Comments Flowsheet Date 06/27/2017 Aguirre Score Blood Edema Fundus Height Fundus Units Glucose Ketones Leukocytes Nitrite Labor Signs Protein Cervic Dilation Cervic Effacement Cervic Station Type Weight in lbs Pre/Post Dialysis Refused 280.20061349655 BP Diastolic BP Location Tested BP Systolic BP Type Fetus Heart Rate Present Fetus Movement Comments Flowsheet Date 07/06/2017 Aguirre Score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
--- OUTSIDE RECORDS SUMMARY | 2024-12-08 12:23 | XMS_ITS | CONTINUITY OF CARE DOCUMENT ---
Author Name scottyjose rafael scottyjose rafael Address Unknown Organization [facility] Address [address] [place] [address] Phone [phone] Care Team Providers Care Party Plan Demonstrator Name Role Phone Antonio Mcdaniel MD Unavailable Antonio Mcdaniel MD Unavailable PROBLEMS Condition Status Date Provider Notes Abdominal pain, RLQ (right lower quadrant) active Michael Driver Imported from [employer]: [employer] (17-May-2019 at 09:27:10 AM) CHEST PAIN-TYPE TO BE DETERMINED-11/13 HOLTRE SR 52-165 active ? William Blair RN SHORTNESS OF BREATH-11/13 JAQUELINE BORDERLINE active ? William Blair RN DIZZINESS-11/13 ECHO EF 60 active ? William Blair RN Palpitations active Antonio Mcdaniel MD Syncope active Antonio Mcdaniel MD Snoring active Antonio Mcdaniel MD Edema active Antonio Mcdaniel MD Fatigue active Antonio Mcdaniel MD Tobacco abuse active Antonio Mcdaniel MD ENCOUNTERS Date Type Provider Location Encounter Diag nosis - In-person encounter Office Visit Antonio Mcdaniel MD [facility] - In-person encounter Office Visit Antonio Mcdaniel MD [facility] Tobacco abuse - In-person encounter Office Visit Antonio Mcdaniel MD [facility] PalpitationsSyncopeSnoringEdemaFatigue - In-person encounter Office Visit Antonio Mcdaniel MD [facility] CHEST PAIN-TYPE TO BE DETERMINED-11/13 HOLTRE SR 52-165SHORTNESS OF BREATH-11/13 JAQUELINE BORDERLINEDIZZINESS-11/13 ECHO EF 60 VITAL SIGNS Date Observation Value Provider Body Mass Index (Ratio) 27.87 kg/m2 Jord en Luis blood pressure, diastolic 60 mm[Hg] Fred cox Driver blood pressure, systolic 100 mm[Hg] Mau siegel [place] oxygen saturation, oximetry 99 % [facility] respiratory rate E&M 16 /min [facility] pulse rate 70 /min [facility] weight E&M 223 [lb_av] [place] height E&M 75 [in_i] Michael [place] blood pressure, diastolic 75 mm[Hg] Ak arvind Meredith blood pressure, systolic 126 mm[Hg] Gissell domingueza Meredith pulse rate 86 /min Ana Meredith oxygen saturation, oximetry 98 % Ana Meredith respiratory rate E&M 16 /min Ana Meredith Body Mass Index (Ratio) 31.12 kg/m2 [facility] [lb_av] Ana Meredith blood pressure, diastolic 60 mm[Hg] Ak arvind Meredith blood pressure, systolic 105 mm[Hg] Gissell domingueza Meredith pulse rate 98 /min Ana Meredith oxygen saturation, oximetry 98 % Ana Meredith respiratory rate E&M 16 /min Ana Meredith Body Mass Index (Ratio) 33.62 kg/m2 [facility] weight E&M 269 [lb_av] Ana Meredith height E&M 75 [in_i] Ana Meredith blood pressure, diastolic, left arm 85 mm [Hg] [facility] blood pressure, systolic, left arm 101 mm [Hg] [facility] blood pressure, diastolic, right arm 85 m m[Hg] [facility] blood pressure, systolic, right arm 125 m m[Hg] [facility] blood pressure, diastolic 85 mm[Hg] Mark pato [place] blood pressure, systolic 101 mm[Hg] Yon hai [place] pulse rate 87 /min [facility] oxygen saturation, oximetry 99 % [facility] respiratory rate E&M 16 /min [facility] weight E&M 242 [lb_av] [facility] ALLERGIES Allergy Name Onset Date Reaction Criticality Status CODEINE Rash Rash Low Criticality active MORPHINE High Criticality active AUGMENTIN High Criticality active RESULTS Date Observation Value Provider Reference Range Interpretation Location 7 free thyroxine index 2.5 [facility] 1.2-4.9 7 triiodothyronine resin uptake 28 % [facility] 24-39 7 thyroxine, serum, total 9.0 ug/dL [facility] 4.5-12.0 7 thyroid stimulating hormone, serum 2.120 u[IU]/mL [facility] 0.450-4.500 7 basophil count, absolute 0.0 x10E3/uL [facility] 0.0-0.2 7 Eosinophil Absolute Count 0.1 X10E3/UL [facility] 0.0-0.4 7 monocyte count, blood, automated 0.4 X10E3/UL [facility] 0.1-0.9 7 lymphocyte count, blood, automated 2.2 X10E3/UL [facility] 0.7-3.1 7 Absolute Neutrophils 3.7 X10E3/UL [facility] 1.4-7.0 7 basophils as percent of blood leukocytes 1 % [facility] Not Estab. 7 eosinophils as percent of blood leukocytes 2 % [facility] Not Estab. 7 monocytes as percent of blood leukocytes 6 % [facility] Not Estab. 7 lymphocytes as percent of blood leukocytes 35 % [facility] Not Estab. 7 neutrophils as percent of blood leukocytes 56 % [facility] Not Estab. 7 platelet count 238 X10E3/UL [facility] 719-159 8627/08/1 7 red blood cell distribution width 13.3 % [facility] 12.3-15.4 7 mean corpuscular hemoglobin concentration, RBC 34.0 G/DL [facility] 31.5-35.7 7 mean corpuscular hemoglobin, RBC 29.0 pg [facility] 26.6-33.0 7 mean corpuscular volume, RBC 85 fL [facility] 79-97 7 hematocrit, blood 38.5 % [facility] 34.0-46.6 7 hemoglobin, blood 13.1 g/dL [facility] 11.1-15.9 7 erythrocyte (RBC) count 4.52 X10E6/UL [facility] 3.77-5.28 7 leukocyte count, blood 6.5 X10E3/UL [facility] 3.4-10.8 7 alanine aminotransferase (SGPT), serum 10 1/L [facility] 0-32 7 aspartate aminotransferase (SGOT), serum 11 1/L [facility] 0-40 7 alkaline phosphatase, serum 49 1/L [facility] 39-117 7 bilirubin, serum, total 0.5 mg/dL [facility] 0.0-1.2 7 albumin/globulin ratio, serum 2.0 [facility] 1.2-2.2 7 globulin, serum 2.0 [facility] 1.5-4.5 7 albumin, serum 4.0 g/dL [facility] 3.5-5.5 7 protein, total, serum 6.0 g/dL [facility] 6.0-8.5 7 calcium, serum 8.8 mg/dL [facility] 8.7-10.2 7 carbon dioxide, venous blood 22 mmol/L [facility] 20-29 7 chloride, serum 105 mmol/L [facility] 96-106 7 potassium, serum 4.0 mmol/L [facility] 3.5-5.2 7 sodium, serum 140 mmol/L [facility] 232-561 1201/08/1 7 urea nitrogen/creatinine ratio, serum 17 [facility] 9-23 7 eGFR if 109 mL/min/{1 .73_m2} [facility] >59 7 eGFR if not 94 mL/min/{1 .73_m2} [facility] >59 7 creatinine, serum 0.86 mg/dL [facility] 0.57-1.00 7 urea nitrogen, blood 15 mg/dL [facility] 6-20 7 blood glucose, random 86 mg/dL [facility] 65-99 5 folate, serum 15.6 NG/MLM [facility] 4.4 - 31.0 5 vitamin b12, serum 312.5 pg/mL [facility] 211.0 - 946.0 5 free thyroxine index 9.5 ??g/dL [facility] 4.4 - 11.4 5 triiodothyronine uptake 1.1 TBI [facility] 0.8 - 1.3 5 thyroxine, serum, total 10.4 ??G/DL [facility] 4.5 - 11.7 5 thyroid stimulating hormone, serum 1.630 ??IU/ML [facility] 0.270 - 4.200 5 pro brain natriuretic peptide 79.5 pg/mL [facility] 0.0 - 125.0 5 ferritin, serum 32.9 ng/mL [facility] 13.0 - 150.0 5 iron binding capacity, total 391.0 (?) [facility] - 5 iron, serum 87.0 ug/dL [facility] 25.0 - 156.0 iron binding capacity, unsaturated 304.0 ??G/DL [facility] 112.0 - 347.0 anion gap, serum 9.5 [facility] - albumin/globulin ratio, serum 2.8 g/dL [facility] 1.1 - 2.5 High globulin, serum 2.6 [facility] 2.3 - 3.8 urea nitrogen/creatinine ratio, serum 12.5 [facility] - Estimated Glomerular Filtration Rate (calc) 95.3 (?) [facility] 59.0 - chloride, serum 99.5 mmol/L [facility] 98.0 - 107.0 potassium, serum 4.6 mmol/L [facility] 3.5 - 5.1 sodium, serum 136.0 mmol/L [facility] 136.0 - 145.0 creatinine, serum 0.8 mg/dL [facility] 0.5 - 1.0 carbon dioxide, venous blood 27.0 mmol/L [facility] 22.0 - 29.0 albumin, serum 4.4 g/dL [facility] 3.5 - 5.2 calcium, serum 9.1 mg/dL [facility] 8.6 - 10.2 aspartate aminotransferase (SGOT), serum 17.0 1/L [facility] 0.0 - 32.0 5 alkaline phosphatase, serum 73.0 1/L [facility] 40.0 - 130.0 alanine aminotransferase (SGPT), serum 16.0 1/L [facility] 0.0 - 33.0 protein, total, serum 7.0 g/dL [facility] 6.6 - 8.7 bilirubin, serum, total 0.4 mg/dL [facility] 0.0 - 1.2 urea nitrogen, blood 10.0 mg/dL [facility] 6.0 - 20.0 2016/04/1 5 blood glucose, random 99.0 mg/dL [facility] 74.0 - 99.0 5 red blood cell distribution width, size density 40.8 fL [facility] - 5 immature granulocytes, percentage of total cells, blood 0.2 % [facility] - 5 nucleated red blood cells as percent of blood leukocytes 0.0 % [facility] - 5 red blood cell (erythrocyte) count, per high power field 0.0 10*3/UL [facility] - 5 eosinophils as percent of blood leukocytes 0.9 % [facility] - 5 neutrophils as percent of blood leukocytes 67.9 % [facility] - 5 Absolute Neutrophils 7.0 CELLS/UL [facility] 1.5 - 7.8 5 basophils as percent of blood leukocytes 0.6 % [facility] - Absolute Basophils 0.1 CELLS/UL [facility] 0.0 - 0.2 5 monocytes as percent of blood leukocytes 4.9 % [facility] - 5 Absolute Monocytes 0.5 CELLS/UL [facility] 0.2 - 1.0 5 lymphocytes as percent of blood leukocytes 25.5 % [facility] - 5 Absolute Lymphocytes 2.6 CELLS/UL [facility] 0.9 - 3.9 5 mean platelet volume 9.4 (?) [facility] - 5 platelet count 315.0 THOUSAND/ UL [facility] 100.0 - 400.0 5 mean corpuscular hemoglobin concentration, RBC 31.8 G/DL [facility] 31.0 - 38.0 5 mean corpuscular hemoglobin, RBC 27.8 pg [facility] 25.0 - 35.0 5 mean corpuscular volume, RBC 87.5 fL [facility] 75.0 - 100.0 5 hematocrit, blood 45.6 % [facility] 35.0 - 55.0 5 hemoglobin, blood 14.5 g/dL [facility] 11.5 - 16.5 5 erythrocyte count, whole blood 5.2 MILLION/U L [facility] 3.5 - 5.5 5 reticulocyte count, absolute 0.066 10*6 CELLS/UL [facility] - 5 reticulocyte count, blood, uncorrected 1.27 % [facility] 0.50 - 2.00 HISTORY OF MEDICATION USE Medication Status Instructions Dates Provider Indications Com ments meperidine (DEMEROL) 50 MG tablet active Take 50 mg by mouth every 4 hours as needed. Michael Driver Imported from [employer] (17-May-2019 at 09:27:10 AM) ibuprofen (MOTRIN) 400 MG tablet active Take 1 Tab by mouth every 6 hours as needed for Pain. 9 Michael Driver Imported from [employer] (17-May-2019 at 09:27:10 AM) ZANTAC TABLET completed 1 tab daily - 5 Ana Meredith SOCIAL HISTORY Date Observation Value Provider social history reviewed E&M revi ewed - no changes required Mitesh Smith number of [facility], f requency, days per week no [facility] caffeine use, averag e drinks per day no [facility] passive cigarette sm edi exposure yes [facility] smoking/tobacco cess ation, patient education and counseling yes [facility] smoking status Current every day smoker Humza Driver social history E&M Lives with family/friends E thnicity: Smoking History: P atient currently smokes every day. P atient has been counseled to quit. Antonio Mcdaniel MD smoking/tobacco cess ation, patient education and counseling yes Antonio Mcdaniel MD smoking status Current every day smoker Alfredo Mcdaniel MD social history reviewed E&M revi ewed - no changes required Antonio Mcdaniel MD physical exercise, f requency, days per week no Ana Meredith alcohol use, average drinks per day none Ana Meredith caffeine use, averag e drinks per day no Ana Meredith drug use none Ana Meredith passive cigarette sm edi exposure yes Ana Meredith social history E&M Lives with family/friends E thnicity: Smoking History: P troy has never smoked. Antonio Mcdaniel MD social history reviewed E&M revi ewed - no changes required Antonio Mcdaniel MD physical exercise, f requency, days per week no Ana Meredith alcohol use, average drinks per day none Ana Meredith caffeine use, averag e drinks per day no Ana Meredith drug use none Ana Meredith passive cigarette sm edi exposure yes Ana Meredith smoking status Never smoker Ana Erwin maier drug use none Antonio multani MD passive cigarette sm edi exposure yes Antonio Mcdaniel MD smoking/tobacco cess ation, patient education and counseling yes Antonio Mcdaniel MD social history E&M L [place] with family/friends E thnicity: William Blair RN social history reviewed E&M reviewed William Blair RN physical exercise, f requency, days per week no [facility] caffeine use, averag e drinks per day no [facility] alcohol use, average drinks per day none [facility] smoking status Non-smoker [facility] MENTAL STATUS Date Observation Value Provider assessment of judgme nt and insight E&M Alert and oriented to time, place and person. Mood and affect are normal. William Blair PLAYER PIANO TECHNICIAN HISTORY Family Member Condition Father NE male <55 Father Family History Coron ya Heart Disease male < 55: INSURANCE PROVIDERS Payer name Policy type / Coverage type [place] red green party ID Ingogo [facility] [id number] HEALTHCARE AND FAMILY SERVICES Medicaid 0 [id number] TREATMENT PLAN Date Name Performer Electrophysiology Mitesh Smith Electrophysiology: O rders: C BC (INCLUDES DIFF/PLT) (6399) C OMPREHENSIVE METABOLIC PANEL, W/EGFR (76050) T HYROID PANEL WITH TSH, 3RD GENERATION (7444) 9 9215 HIGH Complex (CPT-67670) [facility]: O rders: C BC (INCLUDES DIFF/PLT) (6399) C OMPREHENSIVE METABOLIC PANEL, W/EGFR (23265) T HYROID PANEL WITH TSH, 3RD GENERATION (7444) 9 9215 HIGH Complex (CPT-81205) Mitesh Smith Cardiology faxed 03/11/16:Orders: Holter in 1 year Antonio Mcdaniel MD Cardiology faxed 03/02 :STRONGLY ENCOURAGED TO STOP SMOKING; SMOKING CESSATION TECHNIQUES DISCUSSED. Will obtain full PFT's. Antonio Mcdaniel MD Cardiology faxed 03/11/16:No more episodes of syncope. Antonio Mcdaniel MD Cardiology faxed 01/01 06/17 0843:Orders: S lee Study Home (*) Antonio Mcdaniel MD Cardiology faxed 01/01 06/17 0843:Orders: E KG (CPT-53469) C OMPREHENSIVE METABOLIC PANEL W/EGFR (68128) C BC (INCLUDES DIFF/PLT) (6399) P ROBNP, N TERMINAL (30571) T HYROID PANEL WITH TSH, 3RD GENERATION (7444) H olter Monitor 24 Hr (CPT-14295) F ERRITIN (457) F OLATE, SERUM (466) I GENI AND TOTAL IRON BINDING CAPACITY (7573) V ITAMIN B12 (927) R ETICULOCYTE COUNT (793) I GENI, TOTAL (571) Antonio Mcdaniel MD Date Name THYROID PANEL WITH T SH, 3RD GENERATION COMPREHENSIVE METABO LIC PANEL, W/EGFR CBC (INCLUDES DIFF/P LT) Holter Monitor 24 Hr Complete Echo DLCO - 25864 FRC - 57510 FVC - 08153 IRON, TOTAL RETICULOCYTE COUNT VITAMIN B12 IRON AND TOTAL IRON BINDING CAPACITY FOLATE, SERUM FERRITIN Holter Monitor 24 Hr THYROID PANEL WITH T SH, 3RD GENERATION PROBNP, N TERMINAL CBC (INCLUDES DIFF/P LT) COMPREHENSIVE METABO LIC PANEL W/EGFR DLCO - 20623 FRC - 61743 FVC - 36728 STR - Echo Sleep Study Home THYROID PANEL WITH T SH, 3RD GENERATION CBC (H/H, RBC, INDIC ES, WBC, PLT) BASIC METABOLIC PANE L W/EGFR Complete Echo Holter Monitor 24 Hr Spirometry HISTORY OF PROCEDURES Procedure Date Procedure Name Provider Procedure Notes S tatus EKG Antonio sexton MD completed Schedule Followup Antonio duran MD in 1 year completed SNOMED-CT: 582421107 Smoking Cessation Counseling Antonio Mcdaniel MD completed EKG Antonio sexton MD completed SNOMED-CT: 738183866046286 Current Medications Documented Antonio Mcdaniel MD completed Holter, 24 or 48 Antonio multani MD completed BLOOD COUNT HEMOGLOBIN Antonio ortiz MD completed FVC - 64707 Antonio sexton MD completed FRC - 50352 Antonio sexton MD completed DLCO - 08261 Antonio sexton MD completed Schedule Followup Antonio duran MD after testing completed EKG Antonio sexton MD completed SNOMED-CT: 340757878668787 Current Medications Documented Antonio Mcdaniel MD completed EKG Antonio sexton MD completed
--- OUTSIDE RECORDS SUMMARY | 2024-12-08 12:23 | XMS_ITS | Referral Summary ---
Author Organization [facility] Address [address] [place] [address] Care Team Providers Care Radiation Oncology Therapist Name Role Phone Unavailable Primary Care Provider Unavailabl e Source Comments [facility],non-owned Affiliates and Associated Physician Practices is amultiple site organization consisting of ambulatory clinics and hospital sitesin [place], [place] and [place]. This disclosure is being madepursuant to the Care Everywhere program and may not contain all information available regarding this patient. Last updated 18.[facility] Allergies Active Allergy Reactions Criticality Noted Date Comments Augmentin Nausea and/or Vomiting 04/26/2011 Codeine Rash Low 08/25/2012 Iron Urticaria Medium 06/23/2020 Morphine Urticaria Medium 06/23/2020 Medications * Be aware that medications may not be up to date on this document. Alwaysverify current medications with the patient. Medication Sig Dispensed Refills Start Date End Date Status ibuprofen (MOTRIN) 400 MG tablet Take 1 Tab by mouth every 6 hours as needed for Pain. 120 Tab 0 04/29/2011 Active Additional Information Patient not taking.Reported on 06/23/2020 meperidine (DEMEROL) 50 MG tablet Take 50 mg by mouth every 4 hours as needed. Active Vit-Fe Fumarate-FA ( VITAMIN) 28-0.8 MG tablet Take 1 tablet by mouth once daily Active acyclovir (ZOVIRAX) 200 MG capsule Take 200 mg by mouth 5 times daily while awake Active progesterone micronized (PROMETRIUM) 100 MG capsule Take 100 mg by mouth at bedtime Active Active Problems Problem Noted Date Diagnosed Date Oligohydramnios, antepartum 07/01/2020 Overview (07/01/2020): Oligo per outside US done on 06/23/20 at [facility] (TARIQ 5.3 @ 35w1d) O-/ antibody-neg/ IMM/ rpr-NR/ HIv/-NR/ HBSag-NR Plt 260 HH 36.1 1hr GCT 86 +MTHFR Resolved Problems Problem Noted Date Diagnosed Date Resolved Date Abdominal pain, RLQ (right lower quadrant) 04/26/2011 07/01/2020 Social History Tobacco Use Types Packs/Day Years Used Date Smoking Tobacco: Passive Smo ke Exposure - Never Smoker Smokeless Tobacco: Never Alcohol Use Standard Drinks/Week Comments No 0 (1 standard drink = 0.6 oz pur e alcohol) Sex and Gender Information Value Date Recorded Sex Assigned at Not on file Gender Identity Not on file Sexual Orientation Not on file Last Filed Vital Signs Vital Sign Reading Time Taken Comments Blood Pressure 121/70 06/23/2020 5:23 PM CDT Pulse 118 10/07/2017 8:36 PM AGRICULTURAL AGENT Temperature 36.8 C (98.3 F) 07/06/2020 11:17 AM CDT Respiratory Rate 18 10/07/2017 8:36 PM AGRICULTURAL AGENT Oxygen Saturation 98% 10/07/2017 8:36 PM AGRICULTURAL AGENT Inhaled Oxygen Concentration - - Weight 137 kg (302 lb) 06/23/2020 3:36 PM CDT Height 190.5 cm (6' 3 ) 06/23/2020 3:36 PM CDT Body Mass Index 37.75 06/23/2020 3:36 PM CDT Functional Status Functional Status Response Date of Assess ment Is person deaf or have serious hearing difficult y? No 06/23/2020 Is person blind or have serious difficulty seein g? No 06/23/2020 Does person have serious dif ficulty walking/climbing stairs? No 06/23/2020 Does person have difficulty dressing/bathing? No 06/23/2020 Does person have difficulty doing errands alone? No 06/23/2020 Cognitive Status Response Date of Assessm ent Does person have difficulty concentrating/remembering/making decisions? No 06/23/2020 Plan of Treatment Not on file Isabela Francois Personal/Family Self [address] [address] Isabela Francois Personal/Family Self 1995 [address] [place] [address]
--- OUTSIDE RECORDS SUMMARY | 2024-12-08 12:23 | XMS_ITS | Encounter Summary ---
Author Organization [facility] Address [address] [place] [address] Care Team Providers Care Income Tax Administrator Name Role Phone Unavailable Primary Care Provider Unavailabl e Reason for Referral * Consultation (Routine) - Closed Specialty Diagnoses / Procedures Referred By Contac t Referred To Contact Neurological Surgery Diagnoses Spinal stenosis, lumbar region, without neurogenic claudication Maribel Harris PA-C [address] [place] [address] Referral ID Status Reason Start Date Expiration Date V isits Requested Visits Authorized [id number] Closed Specialty Services Required 08/26/2024 08/26/2025 1 1 CLE II ASSEMBLER Encounter Details Date Type Department Care Team (Latest Contact Info) Description 08/26/2024 Transcribe Orders [facility] - Centralized Scheduling [address] [place] [id number] Maribel Harris PA-C [address] [place] [address] Spinal stenosis, lumbar region, without neurogenic claudication Social History Tobacco Use Types Packs/Day Years Used Date Smoking Tobacco: Passive Smo ke Exposure - Never Smoker Smokeless Tobacco: Never Alcohol Use Standard Drinks/Week Comments No 0 (1 standard drink = 0.6 oz pur e alcohol) Sex and Gender Information Value Date Recorded Sex Assigned at Not on file Gender Identity Not on file Sexual Orientation Not on file documented as of this encounter Functional Status Functional Status Response Date of [...] person have difficulty concentrating/remembering/making decisions? No 06/23/2020 documented as of this encounter Plan of Treatment Scheduled Referrals Name Type Priority Associated Diagnoses Orde r Schedule AMB REFERRAL TO NEUROSURGERY Outpatient Referral Routine Spinal stenosis, lumbar region, without neurogenic claudication 1 Occurrences starting 08/26/2024 until 08/26/2025 documented as of this encounter Visit Diagnoses Diagnosis Spinal stenosis, lumbar region, without neurogenic claudication- Primary documented in this encounter
--- OUTSIDE RECORDS SUMMARY | 2024-12-08 12:23 | XMS_ITS | Continuity of Care Document ---
Author Organization [facility] Address [address] [place] [address] Phone Care Team Providers Care Sanitary Landfill Supervisor Name Role Phone MD ROJAS GILBERT Unavailable Unavailable Advance Directives Directive Yes / No Effective Date File Name No Information Encounters Encounter Description Practice Location Reason(s) For Visit Diagnoses Date Provider Providers Copied on Encounter [facility], [address], [place], [place], [id number], [place] tel:[phone] [facility] No Information MD MAXWELL ROJAS. [address] [place] [address], [id number], [place]. tel:[phone] Referring Provider: CHRISTINA Layne, [address] [address], [place], [address]. tel:[phone] Family History Family Member Type Diagnosis Age At Onset No Information Payers Payer name Insurance type Covered constitution party ID Authorraya carranza(s) [place] [employer] [id number] Social History Type Description Quantity Date Captured Comments Sex Female Smoking Status No Information Chief Complaint And Reason For Visit No Information History Of Present Illness Encounter Date Complaint History Of Prese nt Illness No Information Instructions Date Instruction Additional Infor mation No Information Assessments Type Assessment Date No Information
--- OUTSIDE RECORDS SUMMARY | 2024-12-08 12:23 | XMS_ITS | Patient Health Summary ---
Author Organization [facility] Address [address] [place] [address] Care Team Providers Care Hospice Admitting Clerk Name Role Phone Unavailable Primary Care Provider Unavailabl e Note from [facility],non-owned Affiliates and Associated Physician Practices is amultiple site organization consisting of ambulatory clinics and hospital sitesin [place], [place], [place] and [place]. This disclosure is being madepursuant to the Care Everywhere program and may not contain all information available regarding this patient. Last updated 18.[facility] Allergies * Augmentin(Nausea and/or Vomiting) * Codeine(Rash) -Low Criticality * Iron(Urticaria) -Medium Criticality * Morphine(Urticaria) -Medium Criticality Medications * Be aware that medications may not be up to date on this document. Alwaysverify current medications with the patient. * ibuprofen (MOTRIN) 400 MG tablet(Started 04/29/2011) Take 1 Tab by mouth every 6 hours as needed for Pain. * meperidine (DEMEROL) 50 MG tablet Take 50 mg by mouth every 4 hours as needed. * Vit-Fe Fumarate-FA ( VITAMIN) 28-0.8 MG tablet Take 1 tablet by mouth once daily * acyclovir (ZOVIRAX) 200 MG capsule Take 200 mg by mouth 5 times daily while awake * progesterone micronized (PROMETRIUM) 100 MG capsule Take 100 mg by mouth at bedtime Active Problems Problem Noted Date Diagnosed Date Oligohydramnios, antepartum 07/01/2020 Resolved Problems Problem Noted Date Diagnosed Date [...] PM CDT Pulse 118 10/07/2017 8:36 PM CREW TEAM MEMBER Temperature 36.8 C (98.3 F) 07/06/2020 11:17 AM CDT Respiratory Rate 18 10/07/2017 8:36 PM CREW TEAM MEMBER Oxygen Saturation 98% 10/07/2017 8:36 PM CREW TEAM MEMBER Inhaled Oxygen Concentration - - Weight 137 kg (302 lb) 06/23/2020 3:36 PM CDT Height 190.5 cm (6' 3 ) 06/23/2020 3:36 PM CDT Body Mass Index 37.75 06/23/2020 3:36 PM CDT Procedures * BIOPHYSICAL PROFILE WO NST(Performed 07/14/2020) Performed for Oligohydramnios, antepartum, single or unspecified fetus (HCC) * SONOGRAM - COMPLETE(Performed 07/06/2020) Performed for Oligohydramnios, antepartum, single or unspecified fetus (HCC) * IMAGING/RADIOLOGY/XRAY RESULTS ORDER(Performed 07/01/2020) * NONSTRESS TEST(Performed 06/23/2020) * PATHOLOGY/CYTOLOGY REPORT ORDER(Performed 05/04/2011) * LAB RESULTS ORDER(Performed 05/04/2011) * CBC W MANUAL DIFFERENTIAL(Performed 04/29/2011) * GROSS + MICRO EXAM(Performed 04/26/2011) Results * BIOPHYSICAL PROFILE WO NST (07/14/2020 11:40 AM CDT) Anatomical Region Laterality Modality Other 07/14/2020 11:4 0 AM CDT Narrative 07/14/2020 12:13 PM CDT [facility] PHONE: FAX: Pat. Name: ISABELA MEDINA Pat. No: [id number] Study Date: 07/14/2020 11:40am , Age: 03 1995, 24 Pregnancies: 5, Para 2 Height: 73 in Weight: 306 lb LMP: Unknown GA by Base: 38w4d JAMIA: 07/24/2020 GA Selected: 38w4d (From [facility]) JAMIA: 07/24/2020 Referring MD: Johny Echavarria MD Wildlife Veterinarian: Johanne Peralta RDMS CPT4: 15560,16481 BMI: 40.37 Hist/Ind: Class III Obesity H/O x2 Heart Rate: 141 bpm Amniotic Fluid Index: 11.1cm (07.2-23.2) Q1: 3.5cm Q2: 2.8cm Q3: 2.3cm Q4: 2.5cm Biophysical Profile: 05/09 Breathin Tone: 2 Movement: 2 AFV: 2 EVAL, PLACENTA Presentation: cephalic Placenta: posterior Heart Rate: 141 bpm Amniotic Fluid Volume: normal CLINICAL SUMMARY Study Number: 2 A single fetus is seen in cephalic presentation. The amniotic fluid volume is within normal limits. IMPRESSION: Single, live, intrauterine at 38w4d Amniotic fluid volume: within normal limits Biophysical profile: Reassuring RECOMMEND: Repeat is scheduled for 07/17. Thank you for allowing us the opportunity to care for your patient. Paula Morales MD <Electronic Signature> 07/14/2020 12:13pm Kennedy Michelle MD [facility] ORDERABLES * SONOGRAM - COMPLETE (07/06/2020 11:18 AM CDT) Anatomical Region Laterality Modality Other 07/06/2020 11:1 8 AM CDT Narrative 07/06/2020 1:01 PM CDT [facility] PHONE: FAX: Pat. Name: ISABELA MEDINA Pat. No: [id number] Study Date: 07/06/2020 11:18am , Age: 03 1995, 24 Pregnancies: 5, Para 2 Height: 73 in Weight: 306 lb LMP: Unknown GA by US: 37w3d JAMIA: 07/24/2020 GA Selected: 37w3d (From Known E) JAMIA: 07/24/2020 Referring MD: Johny Echavarria MD Wildlife Veterinarian: Johanne Peralta RDMS CPT4: 25883,69843 BMI: 40.37 Hist/Ind: Oligohydramnios on Outside Scan Class III Obesity MEASUREMENTS & AGE GROWTH EVALUATION Measurement GA Range Srce %for GA Ratios ----- ---- ------- BPD 9.3 cm 37w6d (59h6q-42f8p) Hadl BPD 78% FL/BPD 0.78 (0.71 - 0.87) HC 32.9 cm 37w3d (10y9i-06w8r) Hadl HC 27% FL/AC 0.23 (0.20 - 0.24) AC 31.9 cm 35w5d (15d5t-52p7o) Hadl AC 19% HC/AC 1.03 (0.91 - 1.10) FL 7.3 cm 37w1d (35u4z-48i5n) Hadl FL 43% CI 0.80 (0.70 - 0.86) HL 6.7 cm 39w0d (80j1b-88h3m) Sujit HL 76% GA for sonogram 37w3d (55y2p-61o4d) Weight Estimate: based on (HL,BPD,HC,AC,FL) Avg Weight: 2967 gm (2534-3400gm) Had : 6lbs, 8oz Normal: 3117 gm (2338-3896gm) Had Wt% 35% for 37w3d Heart Rate: 160 bpm Amniotic Fluid Index: 11.4cm (07.4-24.2) Q1: 2.3cm Q2: 3.0cm Q3: 4.0cm Q4: 2.1cm Biophysical Profile: 05/09 Breathin Tone: 2 Movement: 2 AFV: 2 EVAL, PLACENTA Presentation: cephalic Placenta: posterior Heart Rate: 160 bpm Amniotic Fluid Volume: normal CLINICAL SUMMARY Study Number: 1 A single fetus is seen in cephalic presentation. The measurements today are consistent with appropriate size for the JAMIA provided. The JAMIA is based on a prior outside ultrasound (confirmed). The amniotic fluid volume is within normal limits. No major malformations were seen within the limitations of ultrasound. IMPRESSION: Single, live intrauterine at 37w3d size is within normal limits Amniotic fluid volume: within normal limits Reassuring BPP (05/09) RECOMMEND: Ultrasound 8 point BPP weekly Thank you for allowing us they opportunity to care for your patient. Kennedy Michelle MD <Electronic Signature> 07/06/2020 01:02pm Johny Echavarria MD [facility] ORDERABLES * IMAGING RADIOLOGY XRAY RESULTS ORDER (07/01/2020 2:34 PM CDT) Anatomical Region Laterality Modality Other Narrative 07/01/2020 2:34 PM CDT Ordered by an unspecified provider. Scanned Document IMAGING * NONSTRESS TEST (06/23/2020 5:31 PM CDT) Narrative Abhay Mello MD - 06/23/2020 5:31 PM CDT Abhay Mello MD 06/24/2020 2:58 AM Name: Isabela Medina Date of : 1995 Today's Date: 06/23/2020 36w4d NST RESULTS (CONTRERAS) OBJECTIVE FINDINGS Temp: 97 F (36.1 C), , , BP: 123/73 NST Indication(s): Rule out premature rupture of membranes Uterine Irritability: Yes Contractions: Not present OBJECTIVE FINDINGS Movement: Present Monitoring Mode: External Baseline: 140 BPM Variability: Moderate Decelerations: None Accelerations: Yes OTHER INFORMATION Antonia Watson, TAIWO PGY1 Assessment/ Non-Stress Test Baseline: 140 beats/minute moderate variability Reactive Contractions: irritable Decelerations: none Radha Feldman MD 06/24/2020 12:53 AM Attending Note NST performed Fhts 140s Tocos irreg Indication contractions in Time greater than 20 min I have reviewed the NST strip and the data in this note. My interpretation is reactive Abhay Mello MD 06/24/2020 2:57 AM Radha Feldman MD [facility] ORDERABLES * PATHOLOGY/CYTOLOGY REPORT ORDER (05/04/2011 10:13 AM CDT) Narrative Procedure Note Document, Scanned - 05/04/2011 10:13 AM CDT Scanned Document LAB - PATHOLOGY/CYTO LOGY ORDERABLES * LAB RESULTS ORDER (05/04/2011 10:13 AM CDT) Narrative Procedure Note Document, Scanned - 05/04/2011 10:13 AM CDT Scanned Document LAB - THERAPEUTIC DR TASHIA MONITORING ORDERABLES * (ABNORMAL) CBC W MANUAL DIFFERENTIAL (04/29/2011 5:06 AM CDT) WBC 10.66 4.5 - 11.0 K/cumm [facility] RBC 3.88(L) 4.10 - 5.10 mill/cumm [facility] Hemoglobin 11.2(L) 12.0 - 16.0 gm/dl [facility] Hematocrit 33.0(L) 36.0 - 47.0 % [facility] MCV 85.1 78.0 - 102.0 cu microns [facility] MCH 28.9 25.0 - 35.0 uug [facility] MCHC 33.9 31.0 - 37.0 % [facility] RDW 12.9 % [facility] MPV 10.1 fl [facility] Platelet Count 204 100 - 400 K/cumm [facility] Comment Manual Diff Done [facility] Band % Manual 3 % [facility] Neutrophils % Manual 74 31 - 78 % [facility] Lymphocytes % Manual 11(L) 13 - 54 % [facility] Monocytes % Manual 8 4 - 13 % [facility] Eosinophils % Manual 4 0 - 8 % [facility] RBC Morphology Slight Anisocytosis, Slight Poikylocytosis [facility] BLOOD SPECIMEN / Unknown 04/29/2011 5:06 AM CDT 04/29/2011 5:32 AM CDT Kita Lester MD LAB - HEMATOLOGY OR DERABLES Performing Organization Address City/State/[facility] [place] va Phone Number [facility] [address] [place] [address] * GROSS + MICRO EXAM (04/26/2011 9:58 PM CDT) [facility] Clinical History [facility] Comment: The patient is a 15-year-old girl with appendicitis who underwent laparoscopic appendectomy. Gross Description [facility] Comment: Submitted fixed in formalin in one container for gross and microscopic examination, labeled with the patient's name, Isabela Medina and appendix is a 6.5 x 2.7 x 1 cm vermiform appendix with attached mesoappendix. The external surface is dusky purple zarate, shaggy, and partially covered by a yellow-narayanan, fibrinous exudate. The proximal appendix and mesentery are stapled. A 0.7 cm perforation is identified 2.5 cm distal to the proximal resection margin. The appendiceal lumen is patent. The appendiceal wall varies from 0.1 to 0.4 cm in thickness. The appendiceal lumen is 0.4 cm in diameter. The specimen is serially sectioned, and associate sales representative sections are submitted in cassette A1. (CT/nab) Microscopic Examination [facility] Comment: 1 H+E The microscopic findings support the diagnosis. Diagnosis [facility] Comment: DIAGNOSIS: APPENDIX, APPENDECTOMY: -PERFORATED ACUTE APPENDICITIS AND PERIAPPENDICITIS. This case has been personally reviewed and interpreted by the attending (teaching) pathologist. Ice Seller OMAR MARI, [facility] Pathologist Russel Dailey M.D. [facility] Electronically Signed By RUSSEL DAILEY [facility] ENTIRE APPENDIX / Unknown 04/26/2011 9:58 PM CDT 04/27/2011 7:55 AM CDT Trace Feliciano MD LAB - PATHOLOGY/CYTO LOGY ORDERABLES [facility] [address] [place] [address]
--- OUTSIDE RECORDS SUMMARY | 2024-12-08 12:23 | XMS_ITS | Clinical Summary ---
Author Organization [facility] Address [address] [place] [address] Care Team Providers Care Fence Supervisor Name Role Phone Unavailable Primary Care Provider Unavailabl e Source Comments [facility],non-owned Affiliates and Associated Physician Practices is amultiple site organization consisting of ambulatory clinics and hospital sitesin [place], [place], [place] and [place]. This disclosure is being madepursuant to the Care Everywhere program and may not contain all information available regarding this patient. Last updated 18.[facility] Allergies Active Allergy Reactions Criticality Noted Date [...] per outside US done on 06/23/20 at [facility] (TARIQ 5.3 @ 35w1d) O-/ antibody-neg/ IMM/ rpr-NR/ HIv/-NR/ HBSag-NR Plt 260 HH 12/36.1 1hr GCT 86 +MTHFR Resolved Problems Problem [...] PM CDT Pulse 118 10/07/2017 8:36 PM ACCESS REP Temperature 36.8 C (98.3 F) 07/06/2020 11:17 AM CDT Respiratory Rate 18 10/07/2017 8:36 PM ACCESS REP Oxygen Saturation 98% 10/07/2017 8:36 PM ACCESS REP Inhaled Oxygen Concentration - - Weight 137 kg (302 lb) 06/23/2020 3:36 PM CDT Height 190.5 cm (6' 3 ) 06/23/2020 3:36 PM CDT Body Mass Index 37.75 06/23/2020 3:36 PM CDT Plan of Treatment Health Maintenance Due Date Last Done Comments MEDICARE AWV 12 MONTHS 1993 PAP SMEAR 1993 HIV SCREENING 2008 HEPATITIS C SCREENING 12/05/2011 DTAP/TDAP/TD VACCINES (1 - Tdap) 2012 HEPATITIS B VACCINE (1 of 3 - 19+ 3-dose series) 2012 COVID-19 VACCINE (2023-2 5 season) 2024 INFLUENZA VACCINE (#1) 2024 DEPRESSION SCREENING 10/02/2024 ZOSTER VACCINE (1 of 2) 12/10/2043 HIB VACCINE Aged Out No longer eligi ble based on patient's age to complete this topic HPV VACCINE Aged Out No longer eligi ble based on patient's age to complete this topic MENINGOCOCCAL (Group B) VACCINE Aged Out No longer eligible based on patient's age to complete this topic MENINGOCOCCAL VACCINE Aged Out No carlos matt eligible based on patient's age to complete this topic PNEUMOCOCCAL VACCINE Aged Out No long er eligible based on patient's age to complete this topic Isabela Francois Personal/Family Self 1995 [address] [address] Isabela Francois Personal/Family Self 1995 [address] [place] [address]
[2024-12-08 12:28] VITALS: BP 121/84; PULSE 82; RESP 18; TEMP 36.8; O2SAT 97
--- NOTE | 2024-12-08 12:38 | ED_ITS ---
HPI - URI/Sore Throat General Chief Complaint: Upper Respiratory Infection Stated Complaint: Flu like symptoms Time Seen by Provider: 12/08/24 12:37 Source: patient Mode of arrival: ambulatory Limitations: no limitations History of Present Illness HPI Narrative: 28 years old white female came to the ED with her daughter, who have headache, body aches, runny nose, sore throat, not feeling good, general body aches started within 24 hours Related Data Home Medications ?Medication ?Instructions ?Recorded ?Confirmed ?Last Taken ?Type naproxen 500 mg tablet 500 mg PO BID 03/16/24 03/16/24 Unknown History tramadol 37.5 mg-acetaminophen 325 1 tablet PO Q6H 03/16/24 03/16/24 Unknown History mg tablet Allergies Allergy/AdvReac Type Severity Reaction Status Date / Time ibuprofen Allergy Intermediate Other Verified 12/08/24 12:20 iron Allergy Intermediate Other Verified 12/08/24 12:20 morphine Allergy Unknown hives Verified 12/08/24 12:20 clavulanic acid AdvReac Intermediate Nausea and Verified 12/08/24 12:20 Vomiting amoxicillin AdvReac Unknown vomiting Verified 03/17/24 06:59 Review of Systems Review of Systems: All systems reviewed & are unremarkable except as noted in HPI and below PMFSH Past Medical History Medical History Dizziness Human papilloma virus Gonorrhea 2017 Chlamydia 2017 Abnormal Pap smear of cervix 08/24/09 HGSIL (+) HPV; 03/11/10 LGSIL (+) HPV; 12/16/10 ASCUS (+) HPV; 02/23/11 colp Rh negative status during Obesity STD (sexually transmitted disease) HSV (herpes simplex virus) infection GBS (group B Streptococcus carrier), +RV culture, currently Heterozygous MTHFR mutation [id number] Anxiety GERD (gastroesophageal reflux disease) Surgical History Surgical History History of ovarian cystectomy 07/21/16 lscope lt ovarian cystectomy--no cystectomy lt ovarian cyst drained, no path History of colposcopy with cervical biopsy 09/10/09 benign 02/23/11 SANDEEP II + HPV History of placement of ear tubes 2002 Hx of cholecystectomy 07/01/14 History of appendectomy History of section 03/17/14 primary c/s--failure to dilate 2016 2019 Family History Family History Father Diabetes mellitus Heart disease COPD (chronic obstructive pulmonary disease) Lung cancer Social History Social History Smoking status: Never smoker Second hand tobacco smoke exposure: No Alcohol intake: never Substance use: never Substance use type: does not use Last use: last time Jul 2022 Do You Feel Safe in your Home?: Yes Lack of Transportation: No Lack of Food: Never True Current Housing: I Have Housing Concerned About Future Housing: No Difficulty Paying Gas/Electric Bills: No Difficulty Paying for Meds: No Currently Unemployed: No Education: Grade School Difficulty w/ Childcare or Family Care: No Living arrangements: with friend(s) Occupation/Education: unemployed Gender identity (if verbalized by the patient): Female Sexual Orientation (if Verbalized by the Patient): Straight or Heterosexual Spiritual care concerns: No Agree to blood products: Yes Exam Narrative: General appearance: Well-developed, well-nourished Skin: Normal color Head: Normocephalic, nontraumatic Eyes: Clear conjunctiva ENT: Oropharynx normal, ears normal, nose normal Neck: Supple, nontender Chest and respiratory: Airway patent, no respiratory distress, no accessory muscle use Heart: Regular rate/rhythm Abdomen: Soft, nontender, no organomegaly, quiet bowel sounds Vascular: Normal peripheral pulses, normal capillary refill. Musculoskeletal: Normal range of motion, nontender back Neurologic: Alert and oriented ?3, LUMBER STRAIGHTENER is normal as tested, no gross motor deficit Course Vital Signs Vital signs: Vital Signs Temperature 36.8 C 12/08/24 12:28 Pulse Rate 82 12/08/24 12:28 Respiratory Rate 18 12/08/24 12:28 Blood Pressure 121/84 12/08/24 12:28 Pulse Oximetry 97 12/08/24 12:28 Temperature 36.8 C 12/08/24 12:28 Pulse Rate 82 12/08/24 12:28 Respiratory Rate 18 12/08/24 12:28 Blood Pressure 121/84 12/08/24 12:28 Pulse Oximetry 98 12/08/24 12:58 Oxygen Delivery Room Air 12/08/24 12:58 MDM - URI/Sore Throat MDM Narrative Medical decision making narrative: Patient presents with flu-like symptoms Tested positive for influenza A Discharged on Tamiflu Lab Data Labs: Lab Results 12/08/24 Range/Units 12:33 Influenza A (RT-PCR) Positive A (Negative) Influenza B (RT-PCR) Negative (Negative) RSV (RT-PCR) Negative (Negative) SARS-CoV-2 RNA (RT-PCR) Negative (Negative) Critical Care Time Critical Care Time Critical Care Time: No Discharge Plan Discharge Clinical Impression: Influenza Patient Disposition: Home, Self-Care Condition: Stable Instructions: Influenza (ED) Additional Instructions: Return if symptoms are worsening , call your family physician for appointment, take Tylenol, ibuprofen as as needed for aches and pain, continue home medications. Patient Language: Guyanese Prescriptions: New oseltamivir [Tamiflu] 75 mg capsule 75 mg PO BID Qty: 10 0RF No Action tramadol-acetaminophen 37.5-325 mg tablet 1 tablet PO Q6H naproxen 500 mg tablet 500 mg PO BID sulfamethoxazole-trimethoprim 800-160 mg tablet 1 tablet PO Q12H 8 Days Qty: 16 0RF Follow-up/Referrals: UNKNOWN,DOCTOR [Primary Care Provider] - Stand Alone Forms: Work/School Release IP
--- OUTSIDE RECORDS SUMMARY | 2024-12-08 12:52 | XMS_ITS | Patient Health Summary ---
Author Organization [facility] Address [address] [place] [address] Care Team Providers Care Merchandise Worker Name Role Phone Unavailable Primary Care Provider Unavailabl e Note from [facility],non-owned Affiliates and Associated Physician Practices is amultiple site organization consisting of ambulatory clinics and hospital sitesin [place], [place], [place] and [place]. This disclosure is being madepursuant to the Care Everywhere program and may not contain all information available regarding this patient. Last updated 18.[facility] Allergies * Augmentin(Nausea and/or Vomiting) * [...] PM CDT Pulse 118 10/07/2017 8:36 PM DIRECTOR OF PULMONARY UNIT Temperature 36.8 C (98.3 F) 07/06/2020 11:17 AM CDT Respiratory Rate 18 10/07/2017 8:36 PM DIRECTOR OF PULMONARY UNIT Oxygen Saturation 98% 10/07/2017 8:36 PM DIRECTOR OF PULMONARY UNIT Inhaled Oxygen Concentration - - Weight 137 [...] FAX: Pat. Name: ISABELA MEDINA Pat. No: [id number] Study Date: 07/14/2020 11:40am , Age: 03 1995, 24 Pregnancies: 5, Para 2 Height: 73 in Weight: 306 lb LMP: Unknown GA by Base: 38w4d JAMIA: 07/24/2020 GA Selected: 38w4d (From [facility]) JAMIA: 07/24/2020 Referring MD: Johny Echavarria MD Media Relations Director: Johanne Peralta RDMS CPT4: 52772,15466 BMI: 40.37 Hist/Ind: Class III Obesity H/O [...] <Electronic Signature> 07/14/2020 12:13pm Kennedy Michelle MD [facility] ORDERABLES * SONOGRAM - COMPLETE (07/06/2020 11:18 AM CDT) Anatomical Region Laterality Modality Other 07/06/2020 11:1 8 AM CDT Narrative 07/06/2020 1:01 PM CDT [facility] PHONE: FAX: Pat. Name: ISABELA MEDINA Pat. No: [id number] Study Date: 07/06/2020 11:18am , Age: 03 1995, 24 Pregnancies: 5, Para 2 Height: 73 in Weight: 306 lb LMP: Unknown GA by US: 37w3d JAMIA: 07/24/2020 GA Selected: 37w3d (From Known E) JAMIA: 07/24/2020 Referring MD: Johny Echavarria MD Media Relations Director: Johanne Peralta RDMS CPT4: 26220,31677 BMI: 40.37 Hist/Ind: Oligohydramnios on Outside Scan Class III Obesity MEASUREMENTS & AGE GROWTH EVALUATION Measurement GA Range Srce %for GA Ratios ----- ---- ------- BPD 9.3 cm 37w6d (77r7v-81s7s) Hadl BPD 78% FL/BPD 0.78 (0.71 - 0.87) HC 32.9 cm 37w3d (64n4g-81v7s) Hadl HC 27% FL/AC 0.23 (0.20 - 0.24) AC 31.9 cm 35w5d (82j4m-11i4f) Hadl AC 19% HC/AC 1.03 (0.91 - 1.10) FL 7.3 cm 37w1d (16f3w-27g5r) Hadl FL 43% CI 0.80 (0.70 - 0.86) HL 6.7 cm 39w0d (54s0m-28r2h) Sujit HL 76% GA for sonogram 37w3d (54s7w-04e9o) Weight Estimate: based on (HL,BPD,HC,AC,FL) Avg Weight: [...] <Electronic Signature> 07/06/2020 01:02pm Johny Echavarria MD [facility] ORDERABLES * IMAGING RADIOLOGY XRAY RESULTS ORDER [...] CDT) WBC 10.66 4.5 - 11.0 K/cumm [facility] RBC 3.88(L) 4.10 - 5.10 mill/cumm [facility] Hemoglobin 11.2(L) 12.0 - 16.0 gm/dl [facility] Hematocrit 33.0(L) 36.0 - 47.0 % [facility] MCV 85.1 78.0 - 102.0 cu microns [facility] MCH 28.9 25.0 - 35.0 uug [facility] MCHC 33.9 31.0 - 37.0 % [facility] RDW 12.9 % [facility] MPV 10.1 fl [facility] Platelet Count 204 100 - 400 K/cumm [facility] Comment Manual Diff Done [facility] Band % Manual 3 % [facility] Neutrophils % Manual 74 31 - 78 % [facility] Lymphocytes % Manual 11(L) 13 - 54 % [facility] Monocytes % Manual 8 4 - 13 % [facility] Eosinophils % Manual 4 0 - 8 % [facility] RBC Morphology Slight Anisocytosis, Slight Poikylocytosis [facility] BLOOD SPECIMEN / Unknown 04/29/2011 5:06 AM CDT 04/29/2011 5:32 AM CDT Kita Lester MD LAB - HEMATOLOGY OR DERABLES Performing Organization Address City/State/[place] Phone Number [facility] [address] [place] [address] * GROSS + MICRO EXAM (04/26/2011 9:58 PM CDT) [facility] Clinical History [facility] Comment: The patient is a 15-year-old girl with appendicitis who underwent laparoscopic appendectomy. Gross Description [facility] Comment: Submitted fixed in formalin in [...] diameter. The specimen is serially sectioned, and title insurance sales representative sections are submitted in cassette A1. (CT/nab) Microscopic Examination [facility] Comment: 1 H+E The microscopic findings support the diagnosis. Diagnosis [facility] Comment: DIAGNOSIS: APPENDIX, APPENDECTOMY: -PERFORATED ACUTE APPENDICITIS AND PERIAPPENDICITIS. This case has been personally reviewed and interpreted by the attending (teaching) pathologist. Business Management Intern OMAR MARI, [facility] Pathologist Russel Dailey M.D. [facility] Electronically Signed By RUSSEL DAILEY [facility] ENTIRE APPENDIX / Unknown 04/26/2011 9:58 PM CDT 04/27/2011 7:55 AM CDT Trace Feliciano MD LAB - PATHOLOGY/CYTO LOGY ORDERABLES [facility] [address] [place] [address]
--- OUTSIDE RECORDS SUMMARY | 2024-12-08 12:52 | XMS_ITS | Clinical Summary ---
Author Organization [facility] [employer] Address [address] [place] [address] Care Team Providers Care Metal Washing Machine Operator Name Role Phone Unavailable Primary Care Provider Unavailabl e Source Comments [facility],non-owned Affiliates and Associated Physician Practices is amultiple site organization consisting of ambulatory clinics and hospital sitesin [place], [place], [place]. This disclosure is being madepursuant to the Care Everywhere program and may not contain all information available regarding this patient. Last updated 18.[facility] [employer] Allergies Active Allergy Reactions Criticality Noted Date [...] per outside US done on 06/23/20 at [facility] (TARIQ 5.3 @ 35w1d) O-/ antibody-neg/ IMM/ [...] PM CDT Pulse 118 10/07/2017 8:36 PM THREADING MACHINE FEEDER AUTOMATIC Temperature 36.8 C (98.3 F) 07/06/2020 11:17 AM CDT Respiratory Rate 18 10/07/2017 8:36 PM THREADING MACHINE FEEDER AUTOMATIC Oxygen Saturation 98% 10/07/2017 8:36 PM THREADING MACHINE FEEDER AUTOMATIC Inhaled Oxygen Concentration - - Weight 137 [...] topic Isabela Francois Personal/Family Self 1995 [address] [address] Isabela Francois Personal/Family Self 1995 [address] [place] [address]
--- OUTSIDE RECORDS SUMMARY | 2024-12-08 12:52 | XMS_ITS | Referral Summary ---
Author Organization [facility] [employer] Address [address] [place] [address] Care Team Providers Care Bit Bender Name Role Phone Unavailable Primary Care Provider Unavailabl e Source Comments [facility],non-owned Affiliates and Associated Physician Practices is amultiple site organization consisting of ambulatory clinics and hospital sitesin [place], [place], [place] and [place]. This disclosure is being madepursuant to the Care Everywhere program and may not contain all information available regarding this patient. Last updated 18.[facility] Allergies Active Allergy Reactions Criticality Noted Date [...] per outside US done on 06/23/20 at [facility] (TARIQ 5.3 @ 35w1d) O-/ antibody-neg/ [...] PM CDT Pulse 118 10/07/2017 8:36 PM SENIOR DRAFTER Temperature 36.8 C (98.3 F) 07/06/2020 11:17 AM CDT Respiratory Rate 18 10/07/2017 8:36 PM SENIOR DRAFTER Oxygen Saturation 98% 10/07/2017 8:36 PM SENIOR DRAFTER Inhaled Oxygen Concentration - - Weight 137 [...] file Isabela Francois Personal/Family Self 1995 [address] [address] Isabela Francois Personal/Family Self 1995 [address] [place] [address]
--- OUTSIDE RECORDS SUMMARY | 2024-12-08 12:52 | XMS_ITS | Encounter Summary ---
Author Organization [facility] Address [address] [place] [address] Care Team Providers Care Mica Miner Blasting Name Role Phone Unavailable Primary Care Provider Unavailabl e Reason for Referral * Consultation (Routine) - Closed Specialty Diagnoses / Procedures Referred By Contac t Referred To Contact Neurological Surgery Diagnoses Spinal stenosis, lumbar region, without neurogenic claudication Maribel Harris PA-C [address] [place] [address] Referral ID Status Reason Start Date Expiration Date V isits Requested Visits Authorized [id number] Closed Specialty Services Required 08/26/2024 08/26/2025 1 1 ATING ROOM AIDE Encounter Details Date Type Department Care Team (Latest Contact Info) Description 08/26/2024 Transcribe Orders [facility] - Centralized Scheduling [address] [place] [id number] Maribel Harris PA-C [address] [place] [address] Spinal stenosis, lumbar region, without neurogenic [...]
--- OUTSIDE RECORDS SUMMARY | 2024-12-08 12:52 | XMS_ITS | Continuity of Care Document ---
Author Organization [facility] Address [address] [place] [address] Phone Care Team Providers Care Verse Writer Name Role Phone MD ROJAS GILBERT Unavailable Unavailable Advance Directives Directive Yes / No Effective Date File Name No Information Encounters Encounter Description Practice Location Reason(s) For Visit Diagnoses Date Provider Providers Copied on Encounter [facility], [address], [place], [place], [id number], [place] tel:[phone] [facility] No Information MD MAXWELL ROJAS. [address] [place] [address], [id number], [place]. tel:[phone] Referring Provider: CHRISTINA Layne, [address] [address], [place], [address]. tel:[phone] Family History Family Member Type Diagnosis Age At Onset No Information Payers Payer name Insurance type Covered republican ID Authorraya carranza(s) [place] [employer] IN[employer]MN[place] [id number] Social History Type Description Quantity Date Captured Comments Sex Female Smoking Status No Information Chief Complaint And Reason For Visit No Information History Of Present Illness Encounter Date Complaint History Of Prese nt Illness No Information Instructions Date Instruction Additional Infor mation No Information Assessments Type Assessment Date No Information
--- OUTSIDE RECORDS SUMMARY | 2024-12-08 12:52 | XMS_ITS | CONTINUITY OF CARE DOCUMENT ---
Author Name scottyjose rafael scottyjose rafael Address Unknown Organization [facility] Address [address] [place] [address] Phone [phone] Care Team Providers Care Technical Training Instructor Name Role Phone Antonio Mcdaniel MD Unavailable Antonio Mcdaniel MD Unavailable [phone] PROBLEMS Condition Status Date Provider Notes Abdominal pain, RLQ (right lower quadrant) active Michael Driver Imported from [employer] (17-May-2019 at 09:27:10 AM) CHEST PAIN-TYPE TO [...] In-person encounter Office Visit Antonio Mcdaniel MD [facility] - In-person encounter Office Visit Antonio Mcdaniel MD [facility] Tobacco abuse - In-person encounter Office Visit Antonio Mcdaniel MD [facility] PalpitationsSyncopeSnoringEdemaFatigue - In-person encounter Office Visit Antonio Mcdaniel MD [facility] CHEST PAIN-TYPE TO BE DETERMINED-11/13 HOLTRE SR 52-165SHORTNESS OF BREATH-11/13 JAQUELINE BORDERLINEDIZZINESS-11/13 ECHO EF 60 VITAL SIGNS Date Observation Value Provider Body Mass Index (Ratio) 27.87 kg/m2 Jord en Luis blood pressure, diastolic 60 mm[Hg] Fred cox Driver blood pressure, systolic 100 mm[Hg] Mau siegel [place] oxygen saturation, oximetry 99 % [facility] respiratory rate E&M 16 /min [facility] pulse rate 70 /min [facility] weight E&M 223 [lb_av] [place] height E&M 75 [in_i] Michael [place] blood pressure, diastolic 75 mm[Hg] Dc arvind Meredith blood pressure, systolic 126 mm[Hg] Gissell domingueza Meredith pulse rate 86 /min Ana Meredith oxygen saturation, oximetry 98 % Ana Meredith respiratory rate E&M 16 /min Ana Meredith Body Mass Index (Ratio) 31.12 kg/m2 [facility] weight E&M 249 [lb_av] Ana Meredith blood pressure, diastolic 60 mm[Hg] Dc arvind Meredith blood pressure, systolic 105 mm[Hg] Gissell domingueza Meredith pulse rate 98 /min Ana Meredith oxygen saturation, oximetry 98 % Ana Meredith respiratory rate E&M 16 /min Ana Meredith Body Mass Index (Ratio) 33.62 kg/m2 [facility] weight E&M 269 [lb_av] Ana Meredith height E&M 75 [in_i] Ana Meredith blood pressure, diastolic, left arm 85 mm [Hg] [facility] blood pressure, systolic, left arm 101 mm [Hg] [facility] blood pressure, diastolic, right arm 85 m m[Hg] [facility] blood pressure, systolic, right arm 125 m m[Hg] [facility] blood pressure, diastolic 85 mm[Hg] Mark pato [place] blood pressure, systolic 101 mm[Hg] Yon hai [place] pulse rate 87 /min [facility] oxygen saturation, oximetry 99 % [facility] respiratory rate E&M 16 /min [facility] weight E&M 242 [lb_av] [facility] [place] ALLERGIES Allergy Name Onset Date Reaction [...] Estab. 7 platelet count 238 X10E3/UL [employer] [phone]/08/1 7 red blood cell distribution width 13.3 [...] 3.5-5.2 7 sodium, serum 140 mmol/L [employer] [phone]/08/1 7 urea nitrogen/creatinine ratio, serum 17 [employer] [...] cell distribution width, size density 40.8 fL [facility] immature granulocytes, percentage of total cells, blood 0.2 % [facility] - 5 nucleated red blood cells as percent of blood leukocytes 0.0 % [facility] - 5 red blood cell (erythrocyte) [...] as percent of blood leukocytes 25.5 % [facility] - 5 Absolute Lymphocytes 2.6 CELLS/UL [employer] 0.9 - 3.9 5 mean platelet volume 9.4 (?) [facility] - 5 platelet count 315.0 THOUSAND/ [...] hours as needed. Michael Driver Imported from [employer] (17-May-2019 at 09:27:10 AM) ibuprofen (MOTRIN) 400 MG tablet active Take 1 Tab by mouth every 6 hours as needed for Pain. 9 Michael Driver Imported from [employer] (17-May-2019 at 09:27:10 AM) ZANTAC TABLET completed 1 tab daily - 5 Ana Meredith SOCIAL HISTORY Date Observation Value Provider social history reviewed E&M revi ewed - no changes required Mitesh Smith number of grandchildren [facility] physical [facility], f requency, days per week no [facility] caffeine use, averag e drinks per day no [facility] passive cigarette sm edi exposure yes [facility] smoking/tobacco cess ation, patient education and counseling yes [facility] smoking status Current every day smoker Humza [...] Mood and affect are normal. 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 Family Member Condition Father [place] male <55 Father Family History Coron ya Heart Disease male < 55: INSURANCE PROVIDERS Payer name Policy type / Coverage type Altus red republican ID [id number] [facility] [id number] HEALTHCARE AND FAMILY SERVICES Medicaid 0 [id number] TREATMENT PLAN Date Name Performer Electrophysiology Mitesh Smith Electrophysiology: O rders: C BC (INCLUDES DIFF/PLT) (6399) C OMPREHENSIVE METABOLIC PANEL, W/EGFR (10562) T HYROID PANEL WITH TSH, 3RD GENERATION (7444) 9 9215 HIGH Complex (CPT-46990) [facility]itesh Smith [facility]: O rders: C BC (INCLUDES DIFF/PLT) (6399) C OMPREHENSIVE METABOLIC PANEL, W/EGFR (52970) T HYROID PANEL WITH TSH, 3RD GENERATION (7444) 9 9215 HIGH Complex (CPT-07573) Mitesh Smith Cardiology faxed 03/11/16:Orders: Holter in 1 year Antonio Mcdaniel MD Cardiology faxed 03/02 :STRONGLY ENCOURAGED TO STOP SMOKING; SMOKING CESSATION TECHNIQUES DISCUSSED. Will obtain full PFT's. Antonio Mcdaniel MD Cardiology faxed 03/11/16:No more episodes of syncope. Antonio Mcdaniel MD Cardiology faxed 01/01 06/17 0843:Orders: S lee Study Home (*) Antonio Mcdaniel MD Cardiology faxed 01/01 06/17 0843:Orders: E KG (CPT-08890) C OMPREHENSIVE METABOLIC PANEL W/EGFR (81584) C BC (INCLUDES DIFF/PLT) (6399) P ROBNP, N TERMINAL (17339) T HYROID PANEL WITH TSH, 3RD GENERATION (7444) H olter Monitor 24 Hr (CPT-37067) F ERRITIN (457) F OLATE, SERUM (466) I GENI AND TOTAL IRON BINDING CAPACITY (7573) V ITAMIN B12 (927) R ETICULOCYTE COUNT (793) I GENI, TOTAL (571) Antonio Mcdaniel MD Date Name THYROID PANEL WITH T SH, 3RD GENERATION COMPREHENSIVE METABO LIC PANEL, W/EGFR CBC (INCLUDES DIFF/P LT) Holter Monitor 24 Hr Complete Echo DLCO - 79035 FRC - 30052 FVC - 16059 IRON, TOTAL RETICULOCYTE COUNT VITAMIN B12 IRON AND TOTAL IRON BINDING CAPACITY FOLATE, SERUM FERRITIN Holter Monitor 24 Hr THYROID PANEL WITH T SH, 3RD GENERATION PROBNP, N TERMINAL CBC (INCLUDES DIFF/P LT) COMPREHENSIVE METABO LIC PANEL W/EGFR DLCO - 06837 FRC - 30961 FVC - 97252 STR - Echo Sleep Study Home THYROID PANEL WITH T SH, 3RD GENERATION CBC (H/H, RBC, INDIC ES, WBC, PLT) BASIC METABOLIC PANE L W/EGFR Complete Echo Holter Monitor 24 Hr Spirometry HISTORY OF PROCEDURES Procedure Date Procedure Name Provider Procedure Notes S tatus EKG Antonio sexton MD completed Schedule Followup Antonio duran MD in 1 year completed SNOMED-CT: [id number] Smoking Cessation Counseling Antonio Mcdaniel MD completed EKG Antonio sexton MD completed SNOMED-CT: 191983982252790 Current Medications Documented Antonio Mcdaniel MD completed Holter, 24 or 48 Antonio multani MD completed BLOOD COUNT HEMOGLOBIN Antonio ortiz MD completed FVC - 35234 Antonio sexton MD completed FRC - 47885 Antonio sexton MD completed DLCO - 22820 Antonio sexton MD completed Schedule Followup Antonio duran MD after testing completed EKG Antonio sexton MD completed SNOMED-CT: 553874537072134 Current Medications Documented Antonio Mcdaniel MD completed EKG Antonio sexton MD completed
[2024-12-08] MEDS: ONDANSETRON HCL ODT 4 MG TABLET PO (12:57)
[2024-12-08 12:58] VITALS: O2SAT 98
--- NOTE | 2024-12-08 12:58 | PC.NURSE ---
pt dropped her PO zofran on the ground. this RN overrode and got a new pill from the [facility]
[2024-12-08 13:14] LABS: Influenza A QL RT-PCR Positive (Negative); Influenza B QL RT-PCR Negative (Negative); RSV RNA, RT-PCR Negative (Negative); SARS-CoV-2 RNA PCR Negative (Negative)
[2024-12-08] MEDS: ACETAMINOPHEN 500 MG TABLET 1000 MG PO (13:35)
== END 2024-12-08 13:36 | disposition home or self-care (01) ==
PROVIDERS: Emergency Provider Emergency Medicine
DX: J10.1 Influenza due to other identified influenza virus with other respiratory manifestations (principal); Z20.822 Contact with and (suspected) exposure to COVID-19; E66.9 Obesity, unspecified; Z68.29 Body mass index [BMI] 29.0-29.9, adult; K21.9 Gastro-esophageal reflux disease without esophagitis; Z90.49 Acquired absence of other specified parts of digestive tract
CPT/HCPCS: 87637; 99283; A9270

== ENCOUNTER 2025-08-11 15:49 | Emergency (ER) | payer OTHER, SELFPAY ==
--- OUTSIDE RECORDS SUMMARY | 2025-08-11 15:52 | XMS_ITS | Clinical Summary ---
Author Organization [facility] [employer] Address [address] [place] [address] Care Team Providers Care Circulation Manager Name Role Phone Unavailable Primary Care Provider Unavailabl e Source Comments [facility],non-owned Affiliates and Associated Physician Practices is amultiple site organization consisting of ambulatory clinics and hospital sitesin [place], [place] and [place]. This disclosure is being madepursuant to the Care Everywhere program and may not contain all information available regarding this patient. Last updated 18.[facility] Allergies Active Allergy Reactions Criticality Noted Date Comments Augmentin Nausea and/or Vomiting 04/26/2011 Codeine Rash Low 08/25/2012 Iron Urticaria Medium 06/23/2020 Morphine Urticaria Medium 06/23/2020 Medications * Be aware that medications may not be up to date on this document. Alwaysverify current medications with the patient. ibuprofen (MOTRIN) 400 MG tablet Take 1 Tab by mouth every 6 hours as needed for Pain. 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 Gender Identity Not on file Sexual Orientation Not on file Last Filed Vital Signs Vital Sign Reading Time Taken Comments Blood Pressure 121/70 06/23/2020 5:23 PM CDT Pulse 118 10/07/2017 8:36 PM OUTBOARD TECHNICIAN Temperature 36.8 C (98.3 F) 07/06/2020 11:17 AM CDT Respiratory Rate 18 10/07/2017 8:36 PM OUTBOARD TECHNICIAN Oxygen Saturation 98% 10/07/2017 8:36 PM OUTBOARD TECHNICIAN Inhaled Oxygen Concentration - - Weight 137 kg (302 lb) 06/23/2020 3:36 PM CDT Height 190.5 cm (6' 3) 06/23/2020 3:36 PM CDT Body Mass Index 37.75 06/23/2020 3:36 PM CDT Plan of Treatment Health Maintenance Due Date Last Done Comments MEDICARE AWV 12 MONTHS 1995 HIV SCREENING 2008 HEPATITIS C SCREENING 12/05/2011 DTAP/TDAP/TD VACCINES (1 - Tdap) 2012 HEPATITIS B VACCINE (1 of 3 - 19+ 3-dose series) 2012 PAP SMEAR 2014 HPV VACCINE (1 - 3-dose SCDM series) 2020 DEPRESSION SCREENING 10/02/2024 COVID-19 VACCINE (1 - 2023-2 5 season) 2025 INFLUENZA VACCINE (#1) 2025 ZOSTER VACCINE (1 of 2) 12/10/2043 HIB VACCINE Aged Out No longer eligi ble based on patient's age to complete this topic MENINGOCOCCAL (Group B) VACC INE SHARED DECISION-MAKING Aged Out No longer eligibl e based on patient's age to complete this topic MENINGOCOCCAL GROUPS A/C/Y/W VACCINE Aged Out No longer eligible b ased on patient's age to complete this topic PNEUMOCOCCAL VACCINE Aged Out No long er eligible based on patient's age to complete this topic Insurance [place] MEDICARE [facility] MEDICAID - [place] MEDICARE
--- OUTSIDE RECORDS SUMMARY | 2025-08-11 15:52 | XMS_ITS | Encounter Summary ---
Author Organization [facility] Address [address] [place] [address] Care Team Providers Care Utilities Manager Name Role Phone Unavailable Primary Care Provider Unavailabl e Reason for Referral * Consultation (Routine) - Closed Specialty Diagnoses / Procedures Referred By Contac t Referred To Contact Neurological Surgery Diagnoses Spinal stenosis, lumbar region, without neurogenic claudication Maribel Harris PA-C [address] [place] [address] Phone: tel: fax: Referral ID Status Reason Start Date Expiration Date V isits Requested Visits Authorized [id number] Closed Specialty Services Required 08/26/2024 08/26/2025 1 1 ER MAKER Encounter Details Date Type Department Care Team (Latest Contact Info) Description 08/26/2024 Transcribe Orders [facility] - Centralized Scheduling [facility] [place] [address] Maribel Harris PA-C [address] [place] [address] Spinal stenosis, lumbar region, without neurogenic [...] on file 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 Answer Date of Assessment Author No 06/23/2020 5:26 PM Antonia Norton RN * Is person blind or have serious difficulty seeing? Answer Date of Assessment Author No 06/23/2020 5:26 PM Antonia Norton RN * Does person have serious difficulty walking/climbing stairs? Answer Date of Assessment Author No 06/23/2020 5:26 PM Antonia Norton RN * Does person have difficulty dressing/bathing? Answer Date of Assessment Author No 06/23/2020 5:26 PM Antonia Norton RN * Does person have difficulty doing errands alone? Answer Date of Assessment Author No 06/23/2020 5:26 PM Antonia Norton RN documented as of this encounter Mental Status * Does person have difficulty concentrating/remembering/making decisions? Answer Entry Date Author No 06/23/2020 5:26 PM Antonia Norton RN documented in this encounter Plan of Treatment Scheduled Referrals Name Type Priority Associated Diagnoses Orde r Schedule AMB REFERRAL TO NEUROSURGERY Outpatient Referral Routine Spinal stenosis, lumbar region, without neurogenic claudication 1 Occurrences starting 08/26/2024 until 08/26/2025 documented as of this encounter Visit Diagnoses Diagnosis Spinal stenosis, lumbar region, without neurogenic claudication- Primary documented in this encounter
--- OUTSIDE RECORDS SUMMARY | 2025-08-11 15:52 | XMS_ITS | Data Portability ---
Author Organization [facility] Address [address] [place] [address] Care Team Providers Care Craft Worker Name Role Phone MARIBEL ORTEGA Primary Care Provider Assessment No assessment recorded. Plan of Treatment Reminders Order Date Submit Date Provider Last Modified By Organization Details Last Modified Time Details Appointments None recorded. Lab HCG, intact + beta subunit, quant, serum or plasma 2024 025 [place] [facility], [address], [place], [address], 5 10:11:16 test, urine 2024 025 JENNY In-Office Order, Internal Use Only DO Not Attach Compendium DO Not Attach Compendium, Do Not Delete/merge, [id number] 5 13:01:27 CMP, serum or plasma 2023 024 J[facility], [address], [place], [address], 4 08:27:19 lipid panel, serum 2023 024 [place], [address], [place], [address], 4 08:27:18 CBC w/ auto diff 2023 024 [facility], [address], [place], [address], 4 08:27:20 TSH + free T4, serum 2023 024 [facility], [address], [place], [address], 4 08:27:18 HbA1c (hemoglob in A1c), blood 2023 024 [facility], [address], [place], [address], 4 08:27:20 test, urine 2020 021 therese In-Office Order, Internal Use Only DO Not Attach Compendium DO Not Attach Compendium, Do Not Delete/merge, [id number] 13:36:11 urinalysi s, dipstick 2020 021 therese In-Office Order, Internal Use Only DO Not Attach Compendium DO Not Attach Compendium, Do Not Delete/merge, [id number] 13:36:11 bacterial vaginosis panel, vaginal 2020 021 [place] [facility] (Centralized Electronic Ordering - All Locations), Patient Can Go To The Location Of Their Choice, [address] 14:07:46 culture, vaginal/r ectal, streptoco ccus group B 2020 021 [place] [facility] (Centralized Electronic Ordering - All Locations), Patient Can Go To The Location Of Their Choice, [address] 14:07:47 Referral otolaryng ologist referral - DO NOT REFER TO [facility] 2023 024 [email or web address] Tyrel Reynolds MD, [address], [address], [place], [address], 4 08:03:54 otolaryng ologist referral 2023 024 taina Gallegos MD, [address], [address], 4 15:47:19 Procedures None recorded. Surgeries None recorded. Imaging XR, lumbosacr al spine, 2 or 3 view [address] [facility] (Radiology), [address] [place], [address], 4 17:00:20 XR, thoracic spine, 3 view [email or web address] (Radiology), [address] [place], [address], 4 10:29:12 Medication Orders acyclovir 400 mg tablet 2023 025 [facility]/Pharmacy #[id number], [address], [place], [address], 5 15:44:49 tramadol 50 mg tablet 2023 024 [id number], [address], [place], [address], 5 14:12:51 Zithromax Z-Sanket 250 mg tablet 2020 021 [facility][id number], [address] [place], [address], 4 10:08:47 Lo Loestrin Fe 1 mg-10 mcg (24)/10 mcg (2) tablet 2020 021 [facility]/Pharmacy #[id number], [address], [place], [address], 4 10:09:00 Patient TargetsNo targets recorded. Patient Instructions Encounter Date Encounter Id Patient Instructions Last Modified By Organization Details Last Modified Time 10/12/2020 [id number] IUD removal: care instructions therese Not available 10/12/2020 13:36:11 01/18/2024 [id number] A healthy lifestyle: care instructions [email or web address] Not available 01/18/2024 11:43:38 12/31/2024 [id number] A healthy lifestyle: care instructions [email or web address] Not available 01/01/2025 08:49:39 Reason for Referral Paper Stripper Referral fo r Excessive salivation Referring Physician: Maribel Ortega [facility], Encounter Date: 01/18/2024 Paper Stripper Referral fo r Excessive salivation DO NOT REFER TO [facility] Referring Physician: Maribel Ortega [facility], Encounter Date: 02/27/2024 Results Created Date Observation Date Name Description Value Unit Range Abnormal Flag Note LastModifiedBy Organization Detail LastModifiedTime 10/12/1910/12/2020 urina lysis , dipst ick Leukocytes Small Not Available In-Offi ce Order Internal Use Only DO Not Attach Compendium DO Not Attach Compendium, Do Not Delete/merge, 10/12/2020 13:27:14 10/12/1910/12/2020 urina lysis , dipst ick Nitrite negati ve Not Available In-Office Order Internal Use Only DO Not Attach Compendium DO Not Attach Compendium, Do Not Delete/merge, 10/12/2020 13:27:14 10/12/1910/12/2020 urina lysis , dipst ick Urobilinogen .2 Not Available In-Of fice Order Internal Use Only DO Not Attach Compendium DO Not Attach Compendium, Do Not Delete/merge, 10/12/2020 13:27:14 10/12/1910/12/2020 urina lysis , dipst ick Protein Negati ve Not Available In-Office Order Internal Use Only DO Not Attach Compendium DO Not Attach Compendium, Do Not Delete/merge, 10/12/2020 13:27:14 10/12/1910/12/2020 urina lysis , dipst ick pH 5.5 Not Available In-Office Order Internal Use Only DO Not Attach Compendium DO Not Attach Compendium, Do Not Delete/merge, 10/12/2020 13:27:14 10/12/19 21 10/12/2020 urina lysis , dipst ick Blood Non-He molyze d: Trace Not Available In-Office Order Internal Use Only DO Not Attach Compendium DO Not Attach Compendium, Do Not Delete/merge, [id number] 10/12/2020 13:27:14 10/12/19 21 10/12/2020 urina lysis , dipst ick Specific [place] 1.030 Not Available In-Off ice Order Internal Use Only DO Not Attach Compendium DO Not Attach Compendium, Do Not Delete/merge, [id number] 10/12/2020 13:27:14 10/12/19 21 10/12/2020 urina lysis , dipst ick Ketone Negati ve Not Available In-Office Order Internal Use Only DO Not Attach Compendium DO Not Attach Compendium, Do Not Delete/merge, [facility] 10/12/2020 13:27:14 10/12/19 21 10/12/2020 urina lysis , dipst ick Bilirubin Negati ve Not Available In-Office Order Internal Use Only DO Not Attach Compendium DO Not Attach Compendium, Do Not Delete/merge, [facility] 10/12/2020 13:27:14 10/12/19 21 10/12/2020 urina lysis , dipst ick Glucose Negati ve Not Available In-Office Order Internal Use Only DO Not Attach Compendium DO Not Attach Compendium, Do Not Delete/merge, [facility] 10/12/2020 13:27:14 10/12/19 21 10/12/2020 pregn iza test, urine HCG negati ve Not Available In-Office Order Internal Use Only DO Not Attach Compendium DO Not Attach Compendium, Do Not Delete/merge, [facility] 10/12/2020 13:27:00 10/12/19 21 10/17/2020 bacte rial vagin osis panel , vagin al trich vag by JOLIE Negati ve negati ve Not Available [facility] ([facility]) [address] [facility], [place], [address], 10/18/2020 14:07:46 10/12/19 21 10/17/2020 bacte rial vagin osis panel , vagin al chlamydia trachomatis, JOLIE Negati ve negati ve Not Available [facility] ([facility]) [address] [place], [address], 10/18/2020 14:07:46 10/12/19 21 10/17/2020 bacte rial vagin osis panel , vagin al neisseria gonorrhoeae, JOLIE Negati ve negati ve Not Available [facility] ([facility]) [address] [place], [address], 10/18/2020 14:07:46 10/12/19 21 10/17/2020 bacte rial vagin osis panel , vagin al hsv 1 JOLIE Negati ve negati ve Not Available [facility] ([facility]) [address] [place], [address], 10/18/2020 14:07:46 10/12/19 21 10/17/2020 bacte rial vagin osis panel , vagin al hsv 2 JOLIE Negati ve negati ve Not Available [facility] ([facility]) [address] [place], [address], 10/18/2020 14:07:46 10/12/19 21 10/18/2020 bacte rial vagin osis panel , vagin al atopobium vaginae High - 2 score abnormal Not Available [facility] ([facility]) [address] [place], [address], 10/18/2020 14:07:46 10/12/19 21 10/18/2020 bacte rial vagin osis panel , vagin al bvab 2 Low - 0 score Not Available [facility] ([facility]) [address] [place], [address], 10/18/2020 14:07:46 10/12/19 21 10/18/2020 bacte rial [...] clear ance or appro nadine is not neces celi. Not Available [facility] ([facility]) [address] [place], [address], 10/18/2020 14:07:46 10/12/19 21 10/18/2020 bacte rial vagin osis panel , vagin al stalin albicans, JOLIE Negati ve negati ve Not Available [facility] ([facility]) [address] [place], [address], 10/18/2020 14:07:46 10/12/19 21 10/18/2020 bacte rial vagin osis panel , vagin al stalin glabrata, JOLIE Negati ve negati ve Not Available [facility] ([facility]) [address] [place], [address], 10/18/2020 14:07:46 10/12/19 21 10/14/2020 cultu re, [...] warra nted if resis tance to clind amyci n is noted . Not Available [facility] ([facility]) [address] [facility], [place], [address], 10/18/2020 14:07:47 02/27/2002/27/2021 HCG, intac t + beta subun it, quant , serum or plasm a HCG,beta subunit,qnt, serum <1 mIU/m L Femal e (Non- pregn ant) 0 - 5 (Post menop ausal ) 0 - 8 Femal e (Preg nant) Weeks of Gesta tion 3 6 - 71 4 10 - 750 5 655 - 38 6 077 - 83447 7 1442 -0310 63 8 89288 -9330 71 9 65852 -1514 10 10 36053 -1140 77 12 96398 -8194 12 14 19298 - 47570 15 51195 - 54772 16 8097 - 38259 17 8660 - 86524 18 8178 - 87893 Dyana ECLIA metho dolog y Not Available [facility] ([facility]) [address] [facility], [place], [address], 02/27/2021 08:16:28 02/27/2002/27/2021 proge stero ne, serum progesterone 3.9 NG/mL Folli cular phase 0.1 - 0.9 Lutea l phase 1.8 - 23.9 Ovula tion phase 0.1 - 12.0 Pregn ant First trime ster 11.0 - 44.3 Secon d trime ster 25.4 - 83.3 Third trime ster 58.7 - 214.0 Postm enopa usal 0.0 - 0.1 Not Available [facility] ([facility]) [address] [place], [address], 02/27/2021 08:16:29 01/18/20 24 01/19/2024 TSH+F REE T4 TSH 1.690 uIU/m L 0.450- 4.500 Not Available [facility] ([facility]) [address] [place], [address], 01/19/2024 08:27:18 01/18/20 24 01/19/2024 TSH+F REE T4 T4,free(dire ct) 1.68 NG/dL 0.82-1 .77 Not Available [facility] ([facility]) [address] [place], [address], 01/19/2024 08:27:18 01/18/20 24 01/19/2024 LIPID PANEL WITH LDL/H DL RATIO cholesterol, total 143 mg/dL 100-19 9 Not Available [facility] ([facility]) [address] [place], [address], 01/19/2024 08:27:18 01/18/20 24 01/19/2024 LIPID PANEL WITH LDL/H DL RATIO triglyceride s 38 mg/dL 0-149 Not Available [facility] ([facility]) [address] [place], [address], 01/19/2024 08:27:18 01/18/20 24 01/19/2024 LIPID PANEL WITH LDL/H DL RATIO HDL cholesterol 59 mg/dL >39 Not Available [facility] ([facility]) [address] [place], [address], 01/19/2024 08:27:18 01/18/20 24 01/19/2024 LIPID PANEL WITH LDL/H DL RATIO VLDL cholesterol suzy 9 mg/dL 5-40 Not Available [facility] ([facility]) [address] [place], [address], 01/19/2024 08:27:18 01/18/20 24 01/19/2024 LIPID PANEL WITH LDL/H DL RATIO LDL chol calc ([facility]) 75 mg/dL 0-99 Not Available [facility] ([facility]) [address] [place], [address], 01/19/2024 08:27:18 01/18/20 24 01/19/2024 LIPID PANEL WITH LDL/H DL RATIO LDL/HDL ratio 1.3 ratio 0.0-3. 2 LDL/H DL Ratio Men Women 1/2 Avg.R isk 1.0 1.5 Avg.R isk 3.6 3.2 2X Avg.R isk 6.2 5.0 3X Avg.R isk 8.0 6.1 Not Available [facility] ([facility]) [address] [place], [address], 01/19/2024 08:27:18 01/18/20 24 01/19/2024 COMP. METAB OLIC PANEL (14) glucose 106 mg/dL 70-99 above high normal Not Available [facility] ([facility]) [address] [place], [address], 01/19/2024 08:27:19 01/18/20 24 01/19/2024 COMP. METAB OLIC PANEL (14) BUN 12 mg/dL 6-20 Not Available [facility] ([facility]) [address] [place], [address], 01/19/2024 08:27:19 01/18/20 24 01/19/2024 COMP. METAB OLIC PANEL (14) creatinine 0.82 mg/dL 0.57-1 .00 Not Available [facility] ([facility]) [address] [facility], [place], [address], 01/19/2024 08:27:19 01/18/20 24 01/19/2024 COMP. METAB OLIC PANEL (14) eGFR 99 mL/mi n/1.7 3 >59 Not Available [facility] ([facility]) [address] [facility], [place], [address], 01/19/2024 08:27:19 01/18/20 24 01/19/2024 COMP. METAB OLIC PANEL (14) BUN/creatini ne ratio 15 9-23 Not Available [facility] ([facility]) [address] [facility], [place], [address], 01/19/2024 08:27:19 01/18/20 24 01/19/2024 COMP. METAB OLIC PANEL (14) sodium 139 mmol/ L 134-14 4 Not Available [facility] ([facility]) [address] [place], [address], 01/19/2024 08:27:19 01/18/20 24 01/19/2024 COMP. METAB OLIC PANEL (14) potassium 4.8 mmol/ L 3.5-5. 2 Not Available [facility] ([facility]) [address] [place], [address], 01/19/2024 08:27:19 01/18/20 24 01/19/2024 COMP. METAB OLIC PANEL (14) chloride 104 mmol/ L 96-106 Not Available [facility] ([facility]) [address] [place], [address], 01/19/2024 08:27:19 01/18/20 24 01/19/2024 COMP. METAB OLIC PANEL (14) carbon dioxide, total 23 mmol/ L 20-29 Not Available [facility] ([facility]) [address] [place], [address], 01/19/2024 08:27:19 01/18/20 24 01/19/2024 COMP. METAB OLIC PANEL (14) calcium 9.0 mg/dL 8.7-10 .2 Not Available [facility] ([facility]) [address] [place], [address], 01/19/2024 08:27:19 01/18/20 24 01/19/2024 COMP. METAB OLIC PANEL (14) protein, total 6.5 g/dL 6.0-8. 5 Not Available [facility] ([facility]) [address] [place], [address], 01/19/2024 08:27:19 01/18/20 24 01/19/2024 COMP. METAB OLIC PANEL (14) albumin 4.2 g/dL 4.0-5. 0 Not Available [facility] ([facility]) [address] [place], [address], 01/19/2024 08:27:19 01/18/20 24 01/19/2024 COMP. METAB OLIC PANEL (14) globulin, total 2.3 g/dL 1.5-4. 5 Not Available [facility] ([facility]) [address] [place], [address], 01/19/2024 08:27:19 01/18/20 24 01/19/2024 COMP. METAB OLIC PANEL (14) A/G ratio 1.8 1.2-2. 2 Not Available [facility] ([facility]) [address] [place], [address], 01/19/2024 08:27:19 01/18/20 24 01/19/2024 COMP. METAB OLIC PANEL (14) bilirubin, total 0.4 mg/dL 0.0-1. 2 Not Available [facility] ([facility]) [address] [facility], [place], [address], 01/19/2024 08:27:19 01/18/20 24 01/19/2024 COMP. METAB OLIC PANEL (14) alkaline phosphatase 76 IU/L 44-121 Not Available [facility] ([facility]) [address] [facility], [place], [address], 01/19/2024 08:27:19 01/18/20 24 01/19/2024 COMP. METAB OLIC PANEL (14) AST (SGOT) 12 IU/L 0-40 Not Available [facility] ([facility]) [address] [facility], [place], [address], 01/19/2024 08:27:19 01/18/20 24 01/19/2024 COMP. METAB OLIC PANEL (14) ALT (SGPT) 9 IU/L 0-32 Not Available [facility] ([facility]) [address] [facility], [place], [address], 01/19/2024 08:27:19 01/18/20 24 01/19/2024 HEMOG LOBIN A1C hemoglobin A1C 5.3 % 4.8-5. 6 Predi abete s: 5.7 - 6.4 Diabe celestino: >6.4 Glyce rebeka contr ol for adult s with diabe celestino: <7.0 Not Available [facility] ([facility]) [address] [facility], [place], [address], 01/19/2024 08:27:20 01/18/20 24 01/19/2024 CBC WITH DIFFE RENTI AL/PL ATELE T WBC 9.9 x10e3 /uL 3.4-10 .8 Not Available [facility] ([facility]) [address] [facility], [place], [address], 01/19/2024 08:27:20 01/18/20 24 01/19/2024 CBC WITH DIFFE RENTI AL/PL ATELE T RBC 4.97 x10e6 /uL 3.77-5 .28 Not Available [facility] ([facility]) [address] [facility], [place], [address], 01/19/2024 08:27:20 01/18/20 24 01/19/2024 CBC WITH DIFFE RENTI AL/PL ATELE T hemoglobin 14.0 g/dL 11.1-1 5.9 Not Available [facility] ([facility]) [address] [facility], [place], [address], 01/19/2024 08:27:20 01/18/20 24 01/19/2024 CBC WITH DIFFE RENTI AL/PL ATELE T hematocrit 42.7 % 34.0-4 6.6 Not Available [facility] ([facility]) [address] [facility], [place], [address], 01/19/2024 08:27:20 01/18/20 24 01/19/2024 CBC WITH DIFFE RENTI AL/PL ATELE T MCV 86 fL 79-97 Not Available [facility] ([facility]) [address] [facility], [place], [address], 01/19/2024 08:27:20 01/18/20 24 01/19/2024 CBC WITH DIFFE RENTI AL/PL ATELE T MCH 28.2 pg 26.6-3 3.0 Not Available [facility] ([facility]) [address] [facility], [place], [address], 01/19/2024 08:27:20 01/18/20 24 01/19/2024 CBC WITH DIFFE RENTI AL/PL ATELE T MCHC 32.8 g/dL 31.5-3 5.7 Not Available [facility] ([facility]) [address] [place], [address], 01/19/2024 08:27:20 01/18/20 24 01/19/2024 CBC WITH DIFFE RENTI AL/PL ATELE T RDW 12.5 % 11.7-1 5.4 Not Available [facility] ([facility]) [address] [facility], [place], [address], 01/19/2024 08:27:20 01/18/20 24 01/19/2024 CBC WITH DIFFE RENTI AL/PL ATELE T platelets 290 x10e3 /uL 150-45 0 Not Available [facility] ([facility]) [address] [facility], [place], [address], 01/19/2024 08:27:20 01/18/20 24 01/19/2024 CBC WITH DIFFE RENTI AL/PL ATELE T neutrophils 71 % notest ab. Not Available [facility] ([facility]) [address] [facility], [place], [address], 01/19/2024 08:27:20 01/18/20 24 01/19/2024 CBC WITH DIFFE RENTI AL/PL ATELE T lymphs 22 % notest ab. Not Available [facility] ([facility]) [address] [facility], [place], [address], 01/19/2024 08:27:20 01/18/20 24 01/19/2024 CBC WITH DIFFE RENTI AL/PL ATELE T monocytes 5 % notest ab. Not Available [facility] ([facility]) [address] [facility], [place], [address], 01/19/2024 08:27:20 01/18/20 24 01/19/2024 CBC WITH DIFFE RENTI AL/PL ATELE T eos 1 % notest ab. Not Available [facility] ([facility]) [address] [facility], [place], [address], 01/19/2024 08:27:20 01/18/20 24 01/19/2024 CBC WITH DIFFE RENTI AL/PL ATELE T basos 1 % notest ab. Not Available [facility] ([facility]) [address] [facility], [place], [address], 01/19/2024 08:27:20 01/18/20 24 01/19/2024 CBC WITH DIFFE RENTI AL/PL ATELE T neutrophils (absolute) 7.0 x10e3 /uL 1.4-7. 0 Not Available [facility] ([facility]) [address] [facility], [place], [address], 01/19/2024 08:27:20 01/18/20 24 01/19/2024 CBC WITH DIFFE RENTI AL/PL ATELE T lymphs (absolute) 2.2 x10e3 /uL 0.7-3. 1 Not Available [facility] ([facility]) [address] [place], [address], 01/19/2024 08:27:20 01/18/20 24 01/19/2024 CBC WITH DIFFE RENTI AL/PL ATELE T monocytes(ab solute) 0.5 x10e3 /uL 0.1-0. 9 Not Available [facility] ([facility]) [address] [place], [address], 01/19/2024 08:27:20 01/18/20 24 01/19/2024 CBC WITH DIFFE RENTI AL/PL ATELE T eos (absolute) 0.1 x10e3 /uL 0.0-0. 4 Not Available [facility] ([facility]) [address] [place], [address], 01/19/2024 08:27:20 01/18/20 24 01/19/2024 CBC WITH DIFFE RENTI AL/PL ATELE T baso (absolute) 0.1 x10e3 /uL 0.0-0. 2 Not Available [facility] ([facility]) [address] [place], [address], 01/19/2024 08:27:20 01/18/20 24 01/19/2024 CBC WITH DIFFE RENTI AL/PL ATELE T immature granulocytes 0 % notest ab. Not Available [facility] ([facility]) [address] [facility], [place], [address], 01/19/2024 08:27:20 01/18/20 24 01/19/2024 CBC WITH DIFFE RENTI AL/PL ATELE T immature grans (abs) 0.0 x10e3 /uL 0.0-0. 1 Not Available [facility] ([facility]) [address] [facility], [place], [address], 01/19/2024 08:27:20 05/16/20 25 05/17/2025 HCG,B ETA SUBUN IT, QNT HCG,beta subunit,qnt, serum <1 mIU/m L Femal e (Non- pregn ant) 0 - 5 (Post menop ausal ) 0 - 8 Femal e (Preg nant) Weeks of Gesta tion 3 6 - 71 4 10 - 750 5 162 - 9308 6 386 - 57775 7 1374 -0896 63 8 68854 -0947 71 9 76153 -9313 10 10 53113 -8449 77 12 85894 -9664 12 14 90612 - 82428 15 55056 - 81853 16 1811 - 19551 17 2568 - 30552 18 3051 - 02992 Dyana ECLIA metho dolog y Not Available [facility] ([facility]) [address] [facility], [place], [address], 05/17/2025 10:11:16 05/16/2005/16/2025 pregn iza test, urine HCG negati ve Not Available In-Office Order Internal Use Only DO Not Attach Compendium DO Not Attach Compendium, Do Not Delete/merge, [id number] 05/16/2025 12:49:52 01/30/2001/30/2024 XR, lumbo sacra l spine , 2 or 3 view No observ ation record ed. [facility] [address] [place], [address], 01/31/2024 10:12:13 07/25/20 24 07/25/2024 MRI, lumba r spine , w/o contr ast No observ ation record ed. [facility] [address], [place], [address], 08/13/2024 15:33:27 Result Notes None recorded. Problems Name Problem SNOMED Code Status Onset Date Resolution Date Notes Provider Name and Address Organization Details Recorded Time Obesity 112243413 Completed Jo Ann Patterson MD Attn: Accounting ,[address] [place], [address] , [place] [facility] 1 11:47:49 Urinary tract infectio us disease 19272192 Active Hermann Brownlee PA-C Attn: Accounting ,[address] [place], [address] , [place] [facility] 6 15:50:14 Acute urinary tract infectio n 581754686 Completed 02/09/2017 Johny E[place]avar[place], [place] [facility] 7 18:08:47 Vertigo 901208265 Completed 02/09/2017 Johny [place] [facility] 7 15:38:24 Obesity 565425251 Completed Do Cavazos [place], [place] [facility] 7 15:13:50 Chlamydi al infectio n 693746527 Completed Do Cavaz[place] [facility] 15:13:51 Chlamydi al infectio n 705340131 Active Do Cavazos [place] [facility] 7 15:13:51 Obesity 277429386 Active Jo Ann Patterson MD Attn: Accounting ,[address] [place], [address] , [place] [facility] 1 11:47:49 Pregnanc y 74234185 Completed 201602/09/2017 Lovely M[place]zes [place] [facility] 0 15:43:32 Genital herpes simplex 25409360 Completed 2016 Jo Ann Patterson MD Attn: Accounting ,[address] [place], [address] , [place] [facility] 1 11:47:48 RhD negative 954842768 Completed 2016 Jo Ann Patterson MD Attn: Accounting ,[address] [place], [address] , [place] [facility] 11:47:49 Abnormal progeste dima 421153314 Active 2016 Do Cavaz[place] [facility] 7 15:13:51 Genital herpes simplex 05087473 Active 2016 Jo Ann Patterson MD Attn: Accounting ,[address] [facility], [place], [address] , [place] [facility] 11:47:49 RhD negative 667103197 Completed 2016 Do Cavaz[place] [facility] 7 15:13:51 RhD negative 948263163 Active 2016 Jo Ann Patterson MD Attn: Accounting ,[address] [facility], [place], [address] , [place] [facility] 11:47:49 Chlamydi a trachoma tis infectio n 169056583 Completed 201606/27/2017 Johny E[place] [facility] 7 13:49:50 Rubella non-immu ne 103234240 Active 2016 Do Cavaz[place] [facility] 7 15:13:50 Abnormal progeste dima 962872417 Completed 2016 Do Cavaz[place] [facility] [place] 15:13:51 Rubella non-immu ne 830480722 Completed 2016 Do [place] [facility] [place] 15:13:50 Genital herpes simplex [id number] Completed 2016 Do Cavazos [place] [facility] 7 15:13:51 Deliveri es by [id number] Completed 2016 Jo Ann Patterson MD Attn: Accounting ,[address] [place], [address] , [place] - [facility] 1 11:47:48 Deliveri es by [id number] Active 2016 Jo Ann Patterson MD Attn: Accounting ,[address] [facility], [place], [address] , [place] [facility] 11:47:48 Gastroes ophageal reflux disease [id number] Completed 2016 Do Cavazos [place] [facility] 7 15:13:51 Gastroes ophageal reflux disease [id number] Active 2016 Do Cavazos [place] [facility] 7 15:13:51 Group B Streptoc occus carrier [id number] Completed 2016 Jo Ann Patterson MD Attn: Accounting ,[address] [place], [address] , [place] [facility] 1 11:47:49 Group B Streptoc occus carrier 44523101580 03 Active 2016 Jo Ann Patterson MD Attn: Accounting ,[address] [facility], [place], [address] , [place] [facility] 1 11:47:49 Candidia sis of vagina 33353941 Active 2016 Johny herrera, [place] [facility] 7 17:24:24 Low back pain 210556595 Completed 201706/24/2019 [place] [facility] 9 17:05:10 Constipa tion 11897914 Active 2018 Hermann Brownlee PA-C Attn: Accounting ,[address] 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, [place], [address] , [place] [facility] 1 11:47:48 Past pregnanc y history of miscarri age 111074554 Active 2019 Jo Ann Patterson MD Attn: Accounting ,[address] 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 Jo Ann Patterson MD Attn: Accounting ,[address] [place], [place], [address] [place] [address] , [facility] - [facility] 11:47:48 Streptoc occal sore throat 77240343 Active 2019 Jo Ann Patterson MD Attn: Accounting ,[address] [place], [place], [address] [place] [address] , [facility] - [facility] 11:47:49 Streptoc occal sore throat 67189755 Completed 2019 Jo Ann Patterson MD Attn: Accounting ,[address] [place], [place], [address] [place] [address] , [place] [facility] 11:47:49 Oligohyd ramnios 15359550 Active 2019 Jo Ann Patterson MD Attn: Accounting ,[address] [place], [place], [address] [place] [address] , [place] [facility] 11:47:48 Oligohyd ramnios 65240855 Completed 2019 Jo Ann Patterson MD Attn: Accounting ,[address] [place], [place], [address] [place] [address] , [place] [facility] 1 11:47:48 Bacteria l vaginosi s 694539066 Active 2020 Johny herrera, [place] - [facility] 1 07:28:37 Chronic back pain 358966148 Active 2023 KAITLYN KERR Attn: Accounting ,[address] [facility], [place], [address] , [place] [facility] 4 08:41:54 Degenera tion of lumbar interver tebral disc 79029401 Active 2024 KAITLYN KERR Attn: Accounting ,[address] [facility], [place], [address] , [place] [facility] 5 08:48:41 Spinal stenosis of thoracic region 30066274 Active 2024 KAITLYN KERR Attn: Accounting ,[address] [facility], [place], [address] , [place] [facility] 5 08:49:04 Problem Notes None recorded. Procedures Surgical History Date Name Laterality Status Provider Name and Address Organization Details Recorded Time 10/12/19 21 IUD Removal completed Johny Echavarria [facility] 10/12/2020 13:45:21 09/07/20 20 IUD Insertion completed [place]o [place] [facility] 09/07/2020 15:56:04 09/03/20 20 IUD Insertion cancelled [place]o [place] [facility] 09/01/2020 21:32:20 01/24/20 19 Date of Last Pap Smear completed NAI Bledsoe [facility] 06/24/2019 16:23:06 03/17/20 14 Caesarean Section completed [facility] B[facility] 12/15/2016 11:28:41 10/02/19 08 Dilation and Curettage completed Johny Echavarria [facility] 11/19/2019 10:58:21 Appendectomy completed NAI Tobin [facility] 06/27/2016 15:19:46 Cholecystectomy completed [facility]I [facility] 06/27/2016 15:19:46 Imaging Results None recorded. Procedure Notes None recorded. Medical Equipment None Reported. Allergies Allergen ID Allergen Name Allergen Category Reaction Reaction Severity Criticality Documentation Date Start Date Code Code System Note Provider Name and Address Organization Details Recorded Time 765540 ibuprofen medicatio n irregular heart rate severe Not available 12/23/2019 5640 RxNorm Azalia Ham [place], [place] [facility] 0 16:42:21 204594 iron medicatio n hives irregular heart rate moderate severe Not available 12/23/2019 41044 RxNorm Ana Newby [place] [facility] 0 10:53:07 678825 vitamin B12 medicatio n rash moderate Not available 02/06/2020 51402 RxNorm [place] Echav[place] [facility] 0 14:38:06 326385 drospiren one medicatio n chest pain severe Not available 09/02/2020 91506 RxNorm 09/02 pt not bashir ating proge stero ne hormo sharon per Bridgett gutiérrez, rn Azalia Ham [place] [facility] 0 14:59:53 44339 morphine medicatio n hives severe Not available 06/27/2016 7052 RxNorm Sarah Wilkerson [place] [facility] 6 15:17:15 59469 Augmentin medicatio n vomiting severe Not available 06/27/2016 85200 2 RxNorm Sarah Wilkerson [place] [facility] 6 15:17:15 Medications Name Sig Start Date Stop Date [...] AREA(S) ON THE SKIN 3 TIMES DAILY 12/12 completed Not Available Not Available Not Available clindamyc in HCl 300 mg capsule [...] 6 HOURS FOR UP TO 5 DAYS. 12/12 completed Not Available Not Available Not Available ofloxacin 0.3 % eye drops INSTILL [...] TIC IN 72 HOURS TAKE 2ND TABLET 12/12 completed Not Available Not Available Not Available naltrexon e 50 mg tablet TAKE [...] FOR 7 DAYS DIRECTED FOR HERPES OUTBREAK 12/31 completed Not Available Not Available Not Available valacyclo vir 500 mg tablet TAKE [...] for 7 days, for chronic back pain. 12/12 completed Not Available Not Available Not Available triamcino lone acetonide 0.1 % topical [...] 1 CAPSULE BY MOUTH TWICE A DAY 12/12 completed Not Available Not Available Not Available erythromy dolores 5 mg/gram (0.5 %) eye ointment APPLY TO AFFECTED EYE(S) EVERY 8 HOURS FOR 7 DAYS 11/21 completed Not Available Not Available Not Available cyanocoba britta (vit B-12) 1,000 mcg/mL injection solution Inject 1 mL every month by subcutan eous route. 04/08 completed Not Available Not Available Not Available oseltamiv ir 75 mg capsule TAKE 1 CAPSULE BY MOUTH TWICE A DAY active Not Available Not Available No t Available ferrous sulfate 325 mg (65 mg [...] TIMES A DAY NEEDED FOR 7 DAYS 12/12 completed Not Available Not Available Not Available progester one micronize d 200 mg capsule Take 1 capsule twice a day by oral route. 08/25 completed Not Available Not Available Not Available docusate sodium 100 mg capsule Take 1 capsule twice a day by oral route for 30 days. 06/24 completed Not Available Not Available Not Available gabapenti n 300 mg capsule TAKE 1 CAPSULE BY MOUTH 3 TIMES DAILY NEEDED FOR BACK PAIN active Not Available Not Available No t Available omeprazol e 20 mg capsule,d elayed [...] APPLY 1 GRAM 4 TIMES A DAY 12/31 completed Not Available Not Available Not Available ergocalci ferol (vitamin D2) 1,250 mcg [...] e 50 mcg/actua tion nasal spray,[facility] [place] 1 spray every day by intranas al route. 03/09 completed Not Available Not Available Not Available naproxen 500 mg tablet TAKE 1 TABLET BY MOUTH TWICE A DAY WITH FOOD 12/31 completed Not Available Not Available Not Available neomycin- polymyxin -hydrocor t 3.5 mg-10,000 unit/mL-1 % ear drops,aurora p INSTILL 2 DROPS INTO BOTH EARS 4 TIMES A DAY 12/31 completed Not Available Not Available Not Available [...] Body mass index (BMI) Body weight Systolic And Diastolic Provider Name and Address Organization Details Last Updated DateTime 10/12/2020 190.5 cm 37.7 kg/m2 547216.9 g 110/82 mm[Hg] Azalia Ham MA [facility] 10/12/2020 13:30:14 Date Recorded Body height Body mass index (BMI) Body weight Oxygen saturation Oxygen saturation in Arterial blood by Pulse oximetry Heart rate Respiratory rate Systolic And Diastolic Provider Name and Address Organization Details Last Updated DateTime 5 190.5 cm 31.1 kg/m2 585899. 96 g 97 % 97 % 94 /min 18 /min 132/86 mm[Hg] Sera Hopkins MA [facility] 5 15:48:47 Date Recorded Body height Body mass index (BMI) Body weight Oxygen saturation Oxygen saturation in Arterial blood by Pulse oximetry Heart rate Respiratory rate Systolic And Diastolic Provider Name and Address Organization Details Last Updated DateTime 4 190.5 cm 29.7 kg/m2 095667. 98 g 97 % 97 % 100 /min 16 /min 128/86 mm[Hg] Sera Hopkins MA [facility] 4 11:18:43 Date Recorded Respiratory rate Provider Name a nd Address Organization Details Last Updated DateTime 02/27/2024 18 /min KAITLYN KERR Attn: Accounting,[address] , [place], [address], [facility] 02/28/2024 08:42:18 Date Recorded Body height Body mass index (BMI) Body weight Oxygen saturation Oxygen saturation in Arterial blood by Pulse oximetry Heart rate Systolic And Diastolic Provider Name and Address Organization Details Last Updated DateTime 4 190.5 cm 29.4 kg/m2 363622. 21 g 99 % 99 % 81 /min 124/85 mm[Hg] Natasha Brownlee MA [facility] 4 16:33:08 Social History Question Answer Notes LastModified by Organizat ion Details LastModified Time Tobacco Smoking Status Never Smoker Sarah Wilkerson MA null, [place] - [facility] 06/27/2016 15:19:46 Do You Have An Advance Directive? No Information not available 12/15/2016 If You Are [...] You Chew? None Information not available 12/15/2016 What Type Of Diet Are You Following? REGULAR Information not available 12/15/2016 Which Illicit Or Recreational Drugs Have You Used? None Information not available 12/15/2016 Education 8 Information no t available 12/15/2016 Have There Been Any Changes To Your Family Or Social Situation? No Information not available 12/15/2016 Frequent Air Travel No Information not available 12/15/2016 Illicit Drugs Pre- None Information not available 12/15/2016 Live Alone Or With Others? With Others Information not available 12/15/2016 Marital Status Single Informatio n not available 12/15/2016 What Was The Date Of Your Most Recent Tobacco Screening? 12/31/2024 Information not available 12/31/2024 How Many Children Do You Have? 2 Information not available 09/18/2017 Performs Monthly Self-breast Exam? No Information not available 09/18/2017 Do You Use Protection During Sex? No [email or web address] Information not available 01/23/2019 What Is Your [...] People That Smoke Information not available 12/15/2016 How Much Tobacco Do You Smoke? No [email or web address] Information not available 01/12/2017 Smoking Pre- No Information not available 12/15/2016 General Stress Level Low Information not available 12/15/2016 Do You Use Sunscreen Routinely? No Information not available 12/15/2016 Supplements Information n ot available 12/15/2016 On What Date Was Tobacco Cessation Counseling Provided? 12/31/2024 [email or web address] Information not available 12/31/2024 How Many Years Have You Smoked Tobacco? 0 [email or web address] Information not available 01/12/2017 Sex: Unknown Functional Status Question Answer Note LastModified by Organizat ion Details LastModified Time What is your level of alcohol consumption? None Information not available 12/15/2016 Do you or have you ever used smokeless tobacco? Never used smokeless tobacco Information not available 11/19/2019 Are you currently employed? No Information not available 12/15/2016 What is your occupation? disability Information not available 12/15/2016 Do you or have you ever used e-cigarettes or vape? Never used electronic cigarettes Information not available 11/19/2019 What is your exercise level? None Information [...] High Blood Pressure N Breast Cancer N Depression N Blood Clots N Lung Disease N Breast Problem N Anesthesia Complications N Headaches/Migraines N Anxiety Disorder N Muscle, Joint, or Bone Problems N Polyps N Infertility N Acid Reflux (GERD) N Cancer N Endometriosis N High Cholesterol N Liver Disease N Thyroid Problems N Kidney or Bladder Problems N GI Problems N Acne N Eating Disorder N Anemia N Diabetes N Ovarian Cancer N Blood Transfusions N Seizures/Epilepsy N Abuse/Domestic Violence N Asthma N Hepatitis N Heart Disease N Pre-Eclampsia N Osteoporosis [...] Recorded Time Tdap 05/01/2017 completed Not Available [facility] 10/19/2019 02:33:54 Tdap 05/07/2020 completed Lovely Menezes MA [facility] 05/07/2020 10:13:50 Past Encounters Encounter ID Performer Location Encounter Start Date Encounter Closed Date Diagnosis/Indication Diagnosis SNOMED-CT Code Diagnosis ICD10 Code Diagnosis IMO Codes Diagnosis Note [id number] Jason Lyn MD [facility] (Adult Med) [address] [place] [address] [id number] 06/27/2016 14:26:55 06/27/2016 15:53:28 Urinary tract infectious disease 09109410 N39.0 [id number] MD Francois Garcia (Adult Med) [address] [place] [address] [id number] 07/11/2016 14:32:03 07/11/2016 15:42:42 Acute urinary tract infection 521421320 N39.0 Vertigo 542492928 R42 1 week [id number] MD Francois Hay (MARKETING COMMUNICATIONS MANAGER) [address] [place] [address] [id number] 12/15/2016 10:13:50 12/16/2016 12:33:01 Routine care 916445650 Z34.92 Hyperemesi s gravidarum 20711764 O21.0 [id number] MD Francois Hay (MARKETING COMMUNICATIONS MANAGER) [address] [place] [address] [id number] 0 12/30/2016 15:51:40 12/30/2016 16:19:04 Routine care 333727734 Z34.92 [id number] MD Francois Hay (MARKETING COMMUNICATIONS MANAGER) [address] [place] [address] [id number] 0 01/12/2017 15:57:22 01/13/2017 12:49:10 Routine care 255201632 Z34.81 Abnormal progesterone 13 7212630 R94.7 Genital he rpes simplex 59663888 A60.9 RhD negative 271826491 Z 01.83 Chlamydia trachomatis infection 120181731 A74.9 Rubella non-immune 37588 4009 Z01.84 [id number] MD Francois Hay (MARKETING COMMUNICATIONS MANAGER) [address] [place] [address] [id number] 0 02/09/2017 15:05:28 02/13/2017 15:58:21 Routine care 233577578 Z34.81 Abnormal progesterone 13 5001423 R94.7 [id number] MD Francois Hay (MARKETING COMMUNICATIONS MANAGER) [address] [place] [address] [id number] 0 03/09/2017 15:41:55 03/14/2017 12:50:45 Routine care 877862288 Z34.81 RhD negative 104941099 Z 01.83 Chlamydia trachomatis infection 637796556 A74.9 Abnormal progesterone 13 0481339 R94.7 [id number] Johny Echavarria MD [facility] (MARKETING COMMUNICATIONS MANAGER) [address] [place] [address] [id number] 0 04/03/2017 15:52:42 04/03/2017 17:15:45 Routine care 263264900 Z34.81 RhD negative 484845103 Z 01.83 Abnormal progesterone 13 9803142 R94.7 Deliveries by [id number] O82 [id number] Johny Echavarria MD [facility] (MARKETING COMMUNICATIONS MANAGER) [address] [place] [address] [phone] 0 05/01/2017 09:30:47 05/03/2017 13:31:32 Routine care 810552259 Z34.81 screening 2437 50661 Z36 [id number] Johny Echavarria MD [facility] (MARKETING COMMUNICATIONS MANAGER) [address] [place] [address] [id number] 0 05/15/2017 14:42:05 05/15/2017 15:36:07 Routine care 031102513 Z34.81 RhD negative 500584188 Z 01.83 Deliveries by [id number] O82 Rubella non-immune 36736 4009 Z01.84 Genital he rpes simplex 68501177 A60.9 Chlamydia trachomatis infection 559654031 A74.9 Gastroesop hageal reflux disease 720420250 K21.9 [id number] Johny Echavarria MD [facility] (MARKETING COMMUNICATIONS MANAGER) [address] [place] [address] [id number] 0 06/12/2017 12:38:32 06/12/2017 14:02:15 Routine care 880719170 Z34.81 Candidiasis of vagina 72 428839 B37.3 Iron defic iency anemia 13577213 D50.9 Abnormal progesterone 13 1856020 R94.7 Deliveries by [id number] O82 Scheduled for 07/28/17. [id number] Johny Echavarria MD [facility] (MARKETING COMMUNICATIONS MANAGER) [address] [place] [address] [id number] 0 06/27/2017 11:39:02 06/27/2017 13:15:38 Routine care 382403745 Z34.81 Deliveries by [id number] O82 Scheduled for 07/28/17. 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 Deliveries by [id number] O82 scheduled for 07/28 RhD negative 734396128 Z 01.83 Genital he rpes simplex 92158948 A60.9 will cont antiviral throughout Rubella non-immune [address] reptococcus carrier 8112418040 103 Z22.330 Chlamydial infection 105 203284 A74.9 [id number] [facility]ETING COMMUNICATIONS MANAGER) [address] [place] [address] [id number] 0 08/14/2017 16:15:25 08/15/2017 12:38:59 state 74515196 Z39.2 incision check Deliveries by [id number] O82 done 07/28 [id number] Meghann Kaufman MD [facility] (MARKETING COMMUNICATIONS MANAGER) [address] [place] [address] [id number] 0 09/18/2017 14:33:04 09/18/2017 16:37:45 care 469404607 Z39.2 Subacute endometritis 19 2400772 N71.0 counseled about it. Irregular bleeding possible from subclinica l endometrit is. Since patient is allergic to augmentin, clindamyci n prescribed . If bleeding does not improve in 2 - 3 weeks will order TVUS at that time. ADVISED PATIENT TO GO TO ER IF INCREASED ABDOMINAL PAIN, HEAVY VAGINAL BLEEDING 1PAD PER HOUR AND FEVER > 100.4, [id number] MD Francois Joseph (MARKETING COMMUNICATIONS MANAGER) [address] [place] [address] [id number] 0 10/06/2017 14:20:48 10/06/2017 15:02:09 Gynecologic examination 62767445 Z01.419 No tampon found in vagina. Advised patient to go to ER if bleeding more than a pad per hour, fever > 100.4, and severe pelvic or back pain. Advised patient to make an appointmen t if symptoms get worse. [id number] MD Francois Garcia (Adult Med) [address] [place] [address] [id number] 0 11/14/2017 13:48:53 11/14/2017 15:05:04 Adult health examination 205587007 Z00.00 Low back pain 710392740 M54.5 Obesity 685956678 E66.9 Gastroesop hageal reflux disease 371611850 K21.9 Urinary tr act infectious disease 29319994 N39.0 [id number] MD Francois Hay (MARKETING COMMUNICATIONS MANAGER) [address] [place] [address] [id number] 0 11/15/2017 11:16:40 11/15/2017 13:30:33 At increased risk of sexually transmitted infection 606095706 Z20.2 Urinary tr act infectious disease 12792212 N39.0 Family chelsea nning surveillance 002862917 Z30.09 doesn't believe in control [id number] MD Francois Joseph (MARKETING COMMUNICATIONS MANAGER) [address] [place] [address] [id number] 0 02/12/2018 15:20:47 02/13/2018 11:17:22 Venereal disease screening 144012805 Z11.3 Z20.2 Menstrual spotting 66674 05 N92.5 Counseled about it. [id number] Johny Echavarria MD [facility] (MARKETING COMMUNICATIONS MANAGER) [address] [place] [address] [id number] 0 01/23/2019 14:49:06 01/23/2019 17:47:21 Amenorrhea 36168824 N91.2 Exposure t o sexually transmissible disorder 654151337 Z20.[address] reptococcus carrier 3593504536 103 Z22.330 Positive UTI from hospital Deliveries by [id number] O82 done 07/28 Obesity 757988569 E66.9 Genital he rpes simplex 61795306 A60.9 will cont antiviral throughout Gynecologi c examination 97404837 Z01.419 Polycystic ovaries 56140 008 E28.2 [id number] Jason Lyn MD [facility] (Adult Med) [address] [place] [address] [id number] 0 05/31/2019 14:07:04 05/31/2019 15:04:42 Low back pain 005023883 M54.5 Gastroesop hageal reflux disease 290793712 K21.9 Constipation 38890110 K5 9.00 Dyspnea 126630294 R06.02 Low blood pressure 36357 003 I95.9 all symptoms resolved with stopping Ibuprofen [id number] Johny Echavarria MD [facility] (MARKETING COMMUNICATIONS MANAGER) [address] [place] [address] [id number] 0 06/24/2019 15:20:48 06/25/2019 13:11:47 Routine care 593744075 Z34.93 Venereal d isease screening 454880239 Z11.3 screening 2437 17982 Z36.85 Abnormal progesterone 13 3991906 R94.7 Deliveries by [id number] O82 done 07/28 RhD negative 233799685 Z 01.[address] reptococcus carrier 2764400385 103 Z22.330 Positive UTI from hospital Genital he rpes simplex 51608035 A60.9 will cont antiviral throughout Obesity 737636595 E66.9 [id number] Jason Lyn MD [facility] (Adult Med) [address] [place] [address] [id number] 0 08/06/2019 14:34:00 08/06/2019 15:43:19 Low back pain 716892109 M54.5 Melanocytic nevus 578661 001 D22.9 Gastroesop hageal reflux disease 994757310 K21.9 Obesity 034539354 E66.9 [id number] Johny Echavarria MD [facility] (MARKETING COMMUNICATIONS MANAGER) [address] [place] [address] [id number] 0 10/03/2019 15:39:34 10/07/2019 12:58:46 Risk of exposure to communicable disease 144150940 Z20.9 Acute urin ya tract infection 111384198 N39.0 Family chelsea nning surveillance 936168287 Z30.09 doesn't believe in control Deliveries by [id number] O82 done 07/28 Genital he rpes simplex 88104405 A60.9 will cont antiviral throughout Group B St reptococcus carrier 6556079157 103 Z22.330 Positive UTI from hospital Allergic rhinitis 064134 04 J30.9 [id number] Jason Lyn MD [facility] (Adult Med) [address] [place] [address] [id number] 0 11/04/2019 14:28:14 11/05/2019 10:22:35 Shoulder strain 776395398 S46.911A Gastroesop hageal reflux disease 452120019 K21.9 Obese 027550164 E66.9 [id number] Johny Echavarria MD [facility] (MARKETING COMMUNICATIONS MANAGER) [address] [place] [address] [id number] 0 11/19/2019 09:52:16 11/20/2019 14:06:25 Routine care 308889439 Z34.93 Venereal d isease screening 878328955 Z11.3 screening 2437 79206 Z36.85 Deliveries by [id number] O82 2016 Genital he rpes simplex 62738807 A60.9 will cont antiviral throughout Past pregn iza history of miscarriage 094287636 Z87.59 Obesity 954778919 E66.9 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 Heterozygo us methylenetetrahydrofo late reductase mutation 2366753874 73736 E72.12 B12 injection 11/28 Past pregn iza history of miscarriage 026069703 Z87.59 Abnormal progesterone 13 6262407 R94.7 Declines progestero ne as she believes it was the cause of her prior miscarriag e. [id number] [facility]ETING COMMUNICATIONS MANAGER) [address] [place] [address] [phone] 0 12/23/2019 16:24:40 12/24/2019 08:44:31 Routine care 496879678 Z34.93 Dehydration 21821087 E86 .0 [id number] [facility] (MARKETING COMMUNICATIONS MANAGER) [address] [place] [address] 45509-795 0 01/02/2020 12:30:22 01/03/2020 08:43:18 Routine care 205233626 Z34.93 Heterozygo us methylenetetrahydrofo late reductase mutation 1476325121 47920 E72.12 heterozygo us for both the MTHFR C677T and L6977Q variants (one copy of each). Compound heterozygo sity for the C677T Deliveries by [id number] O82 2013, 2016 Past pregn iza history of miscarriage 105399527 Z87.59 Obesity 313054427 E66.9 RhD negative 704457490 Z 01.83 at [address] reptococcus carrier 3535913676 103 Z22.330 Positive UTI from hospital Genital he rpes simplex 14595491 A60.9 will cont antiviral throughout [id number] Johny Echavarria MD [facility] (MARKETING COMMUNICATIONS MANAGER) [address] [place] [address] 78948-732 0 01/22/2020 13:13:48 01/22/2020 13:41:55 Routine care 147731218 Z34.93 Heterozygo us methylenetetrahydrofo late reductase mutation 1697414525 67353 E72.12 heterozygo us for both the MTHFR C677T and L9390E variants (one copy of each). Compound heterozygo sity for the C677T Deliveries by O82 [address] reptococcus carrier 2319327896 103 Z22.330 Positive UTI from hospital Genital he rpes simplex 24749873 A60.9 will cont antiviral throughout Chlamydial infection 105 879008 A74.9 Obesity 822496822 E66.9 RhD negative 698353789 Z 01.83 at 28 weeks Eruption 513160221 R21 [id number] Johny Echavarria MD [facility] (MARKETING COMMUNICATIONS MANAGER) [address] [place] [address] [phone] 0 02/06/2020 14:14:27 02/07/2020 08:05:05 Routine care 632765199 Z34.93 Deliveries by [id number] O82 2016 Genital he rpes simplex 02955391 A60.9 will cont antiviral throughout Group B St reptococcus carrier 1660395871 103 Z22.330 Positive UTI from hospital Heterozygo us methylenetetrahydrofo late reductase mutation 9789816977 85104 E72.12 heterozygo us for both the MTHFR C677T and W1020M variants (one copy of each). Compound heterozygo sity for the C677T RASH DUE TO B12 Abnormal progesterone 13 9102383 R94.7 [id number] MD Francois Hay (MARKETING COMMUNICATIONS MANAGER) [address] [place] [address] [phone] 0 03/09/2020 10:08:34 03/10/2020 07:06:49 Abnormal progesterone 882732309 R94.7 Deliveries by [id number] O82 2016 Genital he rpes simplex 03194832 A60.9 will cont antiviral throughout Group B St reptococcus carrier 7440728126 103 Z22.330 Heterozygo us methylenetetrahydrofo late reductase mutation 8693588444 17823 E72.12 heterozygo us for both the MTHFR C677T and T3145T variants (one copy of each). Compound heterozygo sity for the C677T RASH DUE TO B12 Past pregn iza history of miscarriage 538424401 Z87.59 RhD negative 156334120 Z 01.83 at 28 weeks Routine an tenatal care 458644801 Z34.93 [id number] MD Francois Hay (MARKETING COMMUNICATIONS MANAGER) [address] [place] [address] 91648-960 0 04/08/2020 14:42:45 04/09/2020 07:59:17 Routine care 842172793 Z34.93 Heterozygo us methylenetetrahydrofo late reductase mutation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
[2025-08-11 15:56] VITALS: BP 138/81; PULSE 74; RESP 18; TEMP 36.4; O2SAT 100
--- NOTE | 2025-08-11 16:58 | PC.NURSE ---
Pt to intake desk stating that she is going to leave, ambulated to exit using steady gait NAD noted
--- OUTSIDE RECORDS SUMMARY | 2025-08-11 17:31 | XMS_ITS | Encounter Summary ---
Author Organization [facility] Address [address] [place] [address] Care Team Providers Care Water Service Dispatcher Name Role Phone Unavailable Primary Care Provider Unavailabl e Reason for Referral * Consultation (Routine) - Closed Specialty Diagnoses / Procedures Referred By Contac t Referred To Contact Neurological Surgery Diagnoses Spinal stenosis, lumbar region, without neurogenic claudication Maribel Harris PA-C [address] [place] [address] Phone: tel: fax: Referral ID Status Reason Start Date Expiration Date V isits Requested Visits Authorized [id number] Closed Specialty Services Required 08/26/2024 08/26/2025 1 1 NERET CLEANER Encounter Details Date Type Department Care Team (Latest Contact Info) Description 08/26/2024 Transcribe Orders [facility] - Centralized Scheduling Count includes the [facility] [place] [address] Maribel Harris PA-C [address] [place] [address] Spinal stenosis, lumbar region, without neurogenic [...] on file 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
--- OUTSIDE RECORDS SUMMARY | 2025-08-11 17:32 | XMS_ITS | Clinical Summary ---
Author Organization [facility] Address [address] [place] [address] Care Team Providers Care Licensed Clinical Social Worker Name Role Phone Unavailable Primary Care Provider Unavailabl e Source Comments [facility],non-owned Affiliates and Associated Physician Practices is amultiple site organization consisting of ambulatory clinics and hospital sitesin [place], [place], [place] and [place]. This disclosure is being madepursuant to the Care Everywhere program and may not contain all information available regarding this patient. 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
== END 2025-08-11 18:46 | disposition left against medical advice (07) ==
LOC: ANHED 17:29
DX: M79.644 Pain in right finger(s) (principal)
CPT/HCPCS: 99199